=== PATIENT | male | born 1975 | race Caucasian/White ===

== ENCOUNTER 2020-10-29 20:11 | Inpatient (IN) | payer MEDICAID, SELFPAY ==
[2020-10-29 20:16] VITALS: BP 127/82; PULSE 89; RESP 20; TEMP 36.9; O2SAT 95; BMI 30.1
[2020-10-29 22:31] VITALS: BP 114/66; PULSE 81; RESP 18; TEMP 36.6; O2SAT 97
--- NOTE | 2020-10-29 23:33 | ED_ITS ---
HPI - Psych General Chief Complaint: Psychiatric Symptoms Stated Complaint: crisis Time Seen by Provider: 10/29/20 23:30 Source: patient Mode of arrival: ambulatory Limitations: no limitations History of Present Illness HPI Narrative: Patient comes to emergency room complaining of suicidal ideation and hearing voices. Patient states he is known to be schizophrenic, patient states he had stopped taking his medications 2 days ago because he thought he did not need them anymore which he realizes now that it was a mistake. Patient states that earlier this afternoon, patient tried hanging himself. Patient states he was preparing a rope but his family walked in and stop him. Patient states he has history of suicide attempts. Patient states he is hearing voices that are telling him to kill himself. Patient states that he is seeking for inpatient treatments, dual diagnosis Related Data Allergies Allergy/AdvReac Type Severity Reaction Status Date / Time acetaminophen [From TYLENOL] Allergy Unknown STOMACH Unverified 05/15/20 16:18 UPSET amoxicillin [AMOXICILLIN] Allergy Unknown SWELLING Unverified 05/15/20 16:18 clavulanic acid Allergy Unknown UNKNOWN Unverified 05/15/20 16:18 [From AUGMENTIN] Review of Systems Review of Systems: Constitutional : No Weight loss, No Fever, No Chills, No Night Sweats, No Fatigue, No Malaise ENT/Mouth : No Hearing loss, No Ear Pain, No Nasal Congestion, No Sinus Pain, No Hoarseness, No sore throat, No Rhinorrhea, No Swallowing Difficulty Eyes: No Eye Pain, No Swelling, No Redness, No Foreign Body, No Discharge, No Vision Changes Cardiovascular : No Chest Pain, No SOB, No Dyspnea on Exertion, No Orthopnea, No Edema, No Palpitations Respiratory : No Cough, No Sputum, No Wheezing, No Smoke Exposure, No Dyspnea Gastrointestinal : No Nausea, No Vomiting, No Diarrhea, No Constipation, No abdominal Pain, No Hematochezia, No Melena Genitourinary : no irregular bleeding, No Dysuria, No Urinary Frequency, No Hematuria, No Urinary Incontinence, No Urgency, No Flank Pain, No Urinary Flow Changes, No Hesitancy Musculoskeletal : No joint pain, No Myalgias, No Joint Swelling Skin : No Skin Lesions, No rash Neuro : No Weakness, No Numbness, No Paresthesias, No Loss of Consciousness, No Dizziness, No Headache Psych : Anxiety, depression, suicidal ideation, no HI, complaining of auditory hallucinations as well Heme/Lymph: No Bruising, No Bleeding,No Lymphadenopathy Endocrine : No Polyuria, No Polydipsia, No Temperature Intolerance [facility] Past Medical History Medical History Alcohol abuse Anxiety Bipolar 1 disorder PTSD (post-traumatic stress disorder) Schizophrenia Substance abuse Social History Social History Advance Directives: No Advance Directives Information Provided: Yes Physical Exam Vital Signs: Vital Signs: Last Vital Signs Temp 97.9 F 10/29/20 22:31 Pulse 81 10/29/20 22:31 Resp 18 10/29/20 22:31 BP 114/66 10/29/20 22:31 Pulse Ox 97 10/29/20 22:31 Body Mass Index 30.1 Appearance: Alert. Oriented X3. No acute distress. Eyes: Pupils equal, round and reactive to light. ENT: Pharynx normal. Neck: Normal inspection. Neck supple. No lymph nodes noted. No crepitus CVS: Normal heart rate and rhythm. Pulses normal. Normal S1 and S2 Respiratory: No respiratory distress. Breath sounds normal. No Wheezing. No rales Abdomen: Soft and nontender. No rigidity. No distention. good BS x4 Skin: Skin warm and dry. Normal skin color. Normal skin turgor. Extremities: No lower extremity edema. No lower extremity edema. No Lacer ations. No Rash Neuro: Oriented X 3. No motor deficit. No sensory deficit. Moving all extermities. No slurred speech. Psych: Alert, oriented, calm, cooperative, normal train of thought Course Course Course Narrative: N consult pending. Patient is Section 12. Sign-out given to Dr. Sharma. MDM - Psych Lab Data Labs: Lab Results 10/30/20 Range/Units 01:09 Ethyl Alcohol < 10 mg/dL Discharge Plan Discharge Clinical Impression: Suicidal ideation, Chronic schizophrenia
[2020-10-30] VITALS (9 sets, daily range): BP systolic 110–112; BP diastolic 70–78; PULSE 66–73; RESP 16–20; TEMP 36.6–36.7; O2SAT 96–100
--- NOTE | 2020-10-30 | ECG_ITS ---
Test Reason : MEDICAL CLEAR Blood Pressure : / mmHG Vent. Rate : 060 BPM Atrial Rate : 060 BPM P-R Int : 190 ms QRS Dur : 082 ms QT Int : 428 ms P-R-T Axes : 054 001 022 degrees QTc Int : 428 ms Normal sinus rhythm with sinus arrhythmia Possible Left atrial enlargement Borderline ECG When compared with ECG of 20-MAY-2019 01:55, Nonspecific T wave abnormality, improved in Anterior leads Referred By: Vi Jaramillo Electronically Signed By:ALFREDO POLLOCK
[2020-10-30 01:55] LABS: Ethanol < 10 mg/dL
[2020-10-30] MEDS: LORazepam 1 MG TABLET 2 MG PO (07:48)
--- NOTE | 2020-10-30 07:53 | PC.NURSE ---
MED FOR ANXIETY REQUESTED. AWAITING [facility] CONSULT. AMELIE WALLER
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
--- NOTE | 2020-10-30 10:38 | PC.NURSE ---
Pt being evaluated by CARE team. Plan is to send to POD after his interview.
--- NOTE | 2020-10-30 10:58 | MHC.CARE ---
CARE Team assessed patient, he will need an inpatient psychiatric hospitalization and will remain in the ED until a placement is secured. Providers updated
--- NOTE | 2020-10-30 11:28 | PC.NURSE ---
Pt transferred from Main ED to pod. Pt pleasant, cooperative w/ changeover, oriented to unit and to process. decator operator in to see- states pt normally takes suboxone, states provider is aware.
--- NOTE | 2020-10-30 11:55 | PC.NURSE ---
Pt pleasant, states that he would prefer to take suboxone a little later, when he is experiencing more symptoms of withdrawal.
--- NOTE | 2020-10-30 16:52 | PC.NURSE ---
CARE team in to see pt. Pt pleasant, affect even, no concerns reported
--- NOTE | 2020-10-30 18:17 | PC.NURSE ---
Pharmacy called to complete med rec. Pt resting in room- continues to decline suboxone, states he will approach staff when he is ready to take.
[2020-10-30 19:35] LABS: Glucose Urine UA NEG (NEG); Leukocyte Esterase Urine NEG (NEG); Nitrite Urine NEG (NEG); PH 6.5 (5.0-8.0); Specific Gravity - Urine <= 1.005 (1.005-1.025); Urine Blood NEG (NEG); Urine Ketones NEG (NEG); Urine Protein NEG (NEG-TRACE)
[2020-10-30 19:38] LABS: Appearance Urine CLEAR; Color Urine YELLOW
[2020-10-30 19:44] LABS: MANUAL DIFF FLAG NO
[2020-10-30 19:46] LABS: Basophils Percent Auto 0.8 % (0-2); Eosinophils Absolute Auto 0.3 X10*3/uL (0.0-0.4); Eosinophils Percent Auto 5.7 % (0-4); Hematocrit 41.2 % (42-52); Hemoglobin 14.1 g/dl (14.0-18.0); Lymphocytes Absolute Auto 1.4 X10*3/uL (1.2-4.9); Mean Corpuscular HGB Conc 34.2 g/dl (31.0-36.0); Mean Corpuscular Hemoglobin 31.6 pg (27.0-33.0); Mean Corpuscular Volume 92.4 fL (80-98); Monocytes Absolute Auto 0.7 X10*3/uL (0.1-1.2); Monocytes Percent Auto 13.7 % (2-11); Neutrophils Absolute Auto 2.8 X10*3/uL (2.0-8.3); Neutrophils Percent Auto 52.8 % (45-73); Platelet Count 189 X10*3/uL (160-400); Red Blood Count 4.46 X10*6/uL (4.60-5.80); Red Cell Distribution Width 12.6 % (11.0-16.0); White Blood Count 5.3 X10*3/uL (4.8-10.8)
[2020-10-30 20:06] LABS: Amphetamine Screen Urine Not Detected (Not Detect); Barbiturates, Urine Not Detected (Not Detect); Benzodiazepines Screen Urine Not Detected (Not Detect); Cannabinoid Screen Urine Not Detected (Not Detect); Cocaine Screen Urine POSITIVE (Not Detect); Opiate Screen Urine POSITIVE (Not Detect); Phencyclidine Screen Urine Not Detected (Not Detect)
[2020-10-30 20:17] LABS: Alanine Aminotransferase 88 U/L (0-40); Albumin Level 3.8 g/dL (3.5-5.0); Alkaline Phosphatase 65 U/L (39-117); Anion Gap 11 (12-20); Aspartate Amino Transferase 66 U/L (5-37); Bilirubin Direct 0.3 mg/dL (0.0-0.5); Bilirubin Total 0.6 mg/dL (0.0-1.0); Blood Urea Nitrogen 16 mg/dL (9-16); Calcium 8.6 mg/dL (8.4-10.2); Carbon Dioxide 32 mmol/L (22-29); Chloride 102 mmol/L (96-108); Creatinine Clr Calc Pharmacy 117.5; Estimated Glomerular Filt Rate > 60; Glucose Random 88 mg/dL (60-115); Potassium 4.3 mmol/L (3.3-5.1); Sodium 141 mmol/L (135-145); Total Protein 6.4 g/dL (6.5-8.0)
[2020-10-30 20:25] LABS: COVID-19 Test Negative (Negative)
[2020-10-30] MEDS: chlorproMAZINE HCl 25 MG TABLET 75 MG PO (21:15)
[2020-10-30] MEDS: chlorproMAZINE HCl 100 MG TABLET PO (21:16)
[2020-10-30] MEDS: Gabapentin 600 MG TABLET PO (21:16)
[2020-10-30] MEDS: busPIRone HCl 5 MG TABLET 15 MG PO (21:16)
--- NOTE | 2020-10-30 21:21 | PC.NURSE ---
Patient compliant with lab draw, EKG, and with His HS PO medication, declined his suboxone with fear of going into precipitated withdrawal, mood pleasant, help seeking, will continue to monitor.
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
[2020-10-31 06:00] VITALS: BP 114/64; PULSE 53; RESP 16; TEMP 37.1; O2SAT 98
[2020-10-31] MEDS: chlorproMAZINE HCl 25 MG TABLET 75 MG PO (08:29)
[2020-10-31] MEDS: Sertraline HCL 100 MG TABLET PO (08:30)
[2020-10-31] MEDS: Gabapentin 600 MG TABLET PO ×3 (08:30→21:30)
[2020-10-31] MEDS: busPIRone HCl 5 MG TABLET 15 MG PO ×3 (08:30→21:31)
[2020-10-31] MEDS: Buprenorphine/Naloxone 8/2 mg FILM 1 FILM SUBLINGUAL ×2 (08:48→21:31)
[2020-10-31 08:54] LABS: Alanine Aminotransferase 102 U/L (0-40); Albumin Level 4.3 g/dL (3.5-5.0); Alkaline Phosphatase 72 U/L (39-117); Anion Gap 11 (12-20); Aspartate Amino Transferase 78 U/L (5-37); Bilirubin Total 0.8 mg/dL (0.0-1.0); Blood Urea Nitrogen 16 mg/dL (9-16); Calcium 9.1 mg/dL (8.4-10.2); Carbon Dioxide 29 mmol/L (22-29); Chloride 104 mmol/L (96-108); Cholesterol 173 mg/dL; Creatinine Clr Calc Pharmacy 140.6; Estimated Glomerular Filt Rate > 60; Glucose Fasting 81 mg/dL (60-99); HDL Cholesterol 46 mg/dL; LDL Cholesterol Calculated 113 mg/dl; Potassium 4.2 mmol/L (3.3-5.1); Sodium 140 mmol/L (135-145); Total Protein 7.3 g/dL (6.5-8.0); Triglycerides 70 mg/dL
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
[2020-10-31 21:05] VITALS: BP 111/57; PULSE 60; TEMP 36.5
[2020-10-31] MEDS: risperiDONE 1 MG TABLET PO (21:31)
[2020-11-01 06:10] VITALS: BP 130/74; PULSE 61; RESP 16; TEMP 36.7; O2SAT 95
[2020-11-01] MEDS: Gabapentin 600 MG TABLET PO ×3 (08:40→21:24)
[2020-11-01] MEDS: Sertraline HCL 50 MG TABLET PO (08:40)
[2020-11-01] MEDS: Buprenorphine/Naloxone 8/2 mg FILM 1 FILM SUBLINGUAL ×2 (08:40→21:25)
[2020-11-01] MEDS: busPIRone HCl 5 MG TABLET 15 MG PO ×3 (08:40→21:24)
[2020-11-01] MEDS: risperiDONE 1 MG TABLET PO ×2 (08:40→21:24)
[2020-11-01] MEDS: Venlafaxine HCl ER 37.5 MG CAP.ER.24H PO (08:40)
[2020-11-01 21:15] VITALS: BP 128/58; PULSE 82; TEMP 36.8
--- NOTE | 2020-11-01 22:36 | HO.PSYCHPN ---
Subjective Subjective Date of Service: 11/02/20 Reason For Visit: Bipolar dx opiate dep Subjective Notes: Conditional Voluntary Interim History: pt depressed with aud hallucinations Medication Compliance: Yes Side effects from medications: No Mental Status Exam Mental Status Exam Narrative: Appearance: wearing hospital gown, disheveled, in NAD Behavior: withdrawn, minimally cooperative Psychomotor: retardation noted Speech: clear, normal rate/rhythm/volume, spontaneus TP: linear TC: no signs of psychosis, hopeless/helpless Mood: depressed Affect: blunted, congruent VH/AH: pt reports auditory hallucinations, seeing shadows Delusions: none Insight/judgment: poor x 2. Memory/cog: alert, oriented x 3. Diagnostics Vital Signs (24Hr): Vital Signs - 24 hr 11/01/20 06:10 11/01/20 21:15 Temperature 98.0 F 98.2 F Pulse Rate 61 82 Respiratory Rate 16 Blood Pressure 130/74 128/58 L Pulse Oximetry 95 Body Mass Index 30.1 Labs Results: 10/30/20 19:39 10/31/20 08:01 Labs: Laboratory Results - last 48 hr 10/31/20 08:01 Sodium 140 Potassium 4.2 Chloride 104 Carbon Dioxide 29 Anion Gap 11 L BUN 16 Creatinine 0.76 Estim Creat Clear Calc 140.6 Estimated GFR > 60 Fasting Glucose 81 Calcium 9.1 Total Bilirubin 0.8 AST 78 H ALT 102 H Alkaline Phosphatase 72 Total Protein 7.3 Albumin 4.3 Triglycerides 70 Cholesterol 173 LDL Cholesterol, Calc 113 HDL Cholesterol 46 Medications Medications Current Medications Generic Name Dose Route Start Last Admin Trade Name Freq PRN Reason Stop Dose Admin Al Hydroxide/Mg Hydroxide 30 ml 10/30/20 23:58 Magnesium Hydrox/Alum Hydrox 30 Ml Oral.Susp PO Q6H PRN Heartburn/Nausea Buprenorphine/Naloxone 1 film 10/30/20 11:45 11/01/20 21:25 Buprenorphine/Naloxone 8/2 Mg Film SUBLINGUAL 1 film BID MICHAEL Administration Buspirone HCl 15 mg 10/30/20 21:00 11/01/20 21:24 Buspirone Hcl 5 Mg Tablet PO 15 mg TID MICHAEL Administration Gabapentin 600 mg 10/30/20 21:00 11/01/20 21:24 Gabapentin 600 Mg Tablet PO 600 mg TID MICHAEL Administration Hydroxyzine HCl 25 mg 10/30/20 23:58 Hydroxyzine Hcl 25 Mg Tablet PO BEDTIME PRN Anxiety Magnesium Hydroxide 30 ml 10/30/20 23:58 Milk Of Magnesia 30 Ml Oral.Susp PO DAILY PRN Constipation Risperidone 1 mg 10/31/20 21:00 11/01/20 21:24 Risperidone 1 Mg Tablet PO 1 mg BID MICHAEL Administration Sertraline HCl 50 mg 11/01/20 09:00 11/01/20 08:40 Sertraline Hcl 50 Mg Tablet PO 11/05/20 09:01 50 mg DAILY MICHAEL Administration Trazodone HCl 50 mg 10/30/20 23:58 Trazodone Hcl 50 Mg Tablet PO BEDTIME PRN Insomnia Venlafaxine HCl 37.5 mg 11/01/20 09:00 11/01/20 08:40 Venlafaxine Hcl Er 37.5 Mg Cap.Er.24h PO 37.5 mg DAILY MICHAEL Administration Allergies Allergies Allergy/AdvReac Type Severity Reaction Status Date / Time acetaminophen [From TYLENOL] Allergy Unknown STOMACH Unverified 05/15/20 16:18 UPSET amoxicillin [AMOXICILLIN] Allergy Unknown SWELLING Unverified 05/15/20 16:18 clavulanic acid Allergy Unknown UNKNOWN Unverified 05/15/20 16:18 [From AUGMENTIN] Assessment & Plan Assessment & Plan (1) Severe recurrent major depressive disorder with psychosis: Status: Acute Code(s): F33.3 - Major depressive disorder, recurrent, severe with psychotic symptoms Assessment and Plan: change zolft to effexor monitor resoinse to risperadol med ed encourage sobriety (2) Cocaine abuse: Status: Acute Code(s): F14.10 - Cocaine abuse, uncomplicated (3) Opiate dependence, continuous: Status: Acute Code(s): F11.20 - Opioid dependence, uncomplicated Greater than 50% of the session was spent on counseling and/or coordination of care Reason for contiued inpatient stay Substantial Risk for: harm to self and rapid decompensation
[2020-11-02 06:05] VITALS: BP 103/57; PULSE 61; RESP 16; TEMP 36.6; O2SAT 94
[2020-11-02] MEDS: Gabapentin 600 MG TABLET PO ×3 (08:45→20:01)
[2020-11-02] MEDS: risperiDONE 1 MG TABLET PO ×2 (08:45→20:01)
[2020-11-02] MEDS: busPIRone HCl 5 MG TABLET 15 MG PO ×3 (08:45→20:01)
[2020-11-02] MEDS: Venlafaxine HCl ER 37.5 MG CAP.ER.24H PO (08:45)
[2020-11-02] MEDS: Buprenorphine/Naloxone 8/2 mg FILM 1 FILM SUBLINGUAL ×2 (08:45→20:04)
[2020-11-02] MEDS: Sertraline HCL 50 MG TABLET PO (08:45)
[2020-11-02 18:00] VITALS: BP 110/74; PULSE 76; TEMP 36.9
[2020-11-02] MEDS: Ibuprofen 800 MG TABLET PO (18:55)
--- NOTE | 2020-11-02 20:10 | P.PNPSI_ITS ---
Subjective Subjective Date of Service: 11/02/20 Reason For Visit: Bipolar dx opiate dep Subjective Notes: [place] Warning and 3 Day Medication Compliance: Yes Mental Status Exam Mental Status Exam Patient Appearance: Appropriate Patient Orientation: Person, Place, Time and Situation Level of Consciousness: Awake Patient Behavior: Appropriate, Passive and Anxious Mood Description: Withdrawn, Depressed and Anxious Affect Description: Depressed and Anxious Hallucinations: Auditory Thought Content: positive for [place], positive for Suicidal Ideation (passive) and negative for Homicidal Ideation Depressive Symptoms: Increased Anxiety, Feelings of Worthlessness and Loss of Energy Judgement: Fair Diagnostics Vital Signs (24Hr): Vital Signs - 24 hr 11/01/20 21:15 11/02/20 06:05 11/02/20 18:00 Temperature 98.2 F 97.9 F 98.5 F Pulse Rate 82 61 76 Respiratory Rate 16 Blood Pressure 128/58 L 103/57 L 110/74 Pulse Oximetry 94 Body Mass Index 30.1 Labs Results: 10/30/20 19:39 10/31/20 08:01 Medications Medications Current Medications Generic Name Dose Route Start Last Admin Trade Name Freq PRN Reason Stop Dose Admin Al Hydroxide/Mg Hydroxide 30 ml 10/30/20 23:58 Magnesium Hydrox/Alum Hydrox 30 Ml Oral.Susp PO Q6H PRN Heartburn/Nausea Buprenorphine/Naloxone 1 film 10/30/20 11:45 11/02/20 20:04 Buprenorphine/Naloxone 8/2 Mg Film SUBLINGUAL 1 film BID MICHAEL Administration Buspirone HCl 15 mg 10/30/20 21:00 11/02/20 20:01 Buspirone Hcl 5 Mg Tablet PO 15 mg TID MICHAEL Administration Gabapentin 600 mg 10/30/20 21:00 11/02/20 20:01 Gabapentin 600 Mg Tablet PO 600 mg TID MICHAEL Administration Hydroxyzine HCl 25 mg 10/30/20 23:58 Hydroxyzine Hcl 25 Mg Tablet PO BEDTIME PRN Anxiety Ibuprofen 800 mg 11/02/20 18:43 11/02/20 18:55 Ibuprofen 800 Mg Tablet PO 800 mg Q8H PRN Administration lower back pain Magnesium Hydroxide 30 ml 10/30/20 23:58 Milk Of Magnesia 30 Ml Oral.Susp PO DAILY PRN Constipation Risperidone 1 mg 10/31/20 21:00 11/02/20 20:01 Risperidone 1 Mg Tablet PO 1 mg BID MICHAEL Administration Sertraline HCl 50 mg 11/01/20 09:00 11/02/20 08:45 Sertraline Hcl 50 Mg Tablet PO 11/05/20 09:01 50 mg DAILY MICHAEL Administration Trazodone HCl 50 mg 10/30/20 23:58 Trazodone Hcl 50 Mg Tablet PO BEDTIME PRN Insomnia Venlafaxine HCl 37.5 mg 11/01/20 09:00 11/02/20 08:45 Venlafaxine Hcl Er 37.5 Mg Cap.Er.24h PO 37.5 mg DAILY MICHAEL Administration Allergies Allergies Allergy/AdvReac Type Severity Reaction Status Date / Time acetaminophen [From TYLENOL] Allergy Unknown STOMACH Unverified 05/15/20 16:18 UPSET amoxicillin [AMOXICILLIN] Allergy Unknown SWELLING Unverified 05/15/20 16:18 clavulanic acid Allergy Unknown UNKNOWN Unverified 05/15/20 16:18 [From AUGMENTIN] Assessment & Plan Assessment & Plan (1) Severe recurrent major depressive disorder with psychosis: Status: Acute Code(s): F33.3 - Major depressive disorder, recurrent, severe with psychotic symptoms (2) Opiate dependence, continuous: Status: Acute Code(s): F11.20 - Opioid dependence, uncomplicated (3) Cocaine abuse: Status: Acute Code(s): F14.10 - Cocaine abuse, uncomplicated Assessment and Plan: ? need for CSS risp for luci hensley for joel depression Greater than 50% of the session was spent on counseling and/or coordination of care Reason for contiued inpatient stay Substantial Risk for: harm to self and rapid decompensation
[2020-11-03 06:00] VITALS: BP 115/74; PULSE 61; RESP 16; TEMP 36.7; O2SAT 96
[2020-11-03] MEDS: busPIRone HCl 5 MG TABLET 15 MG PO ×3 (09:10→20:07)
[2020-11-03] MEDS: Venlafaxine HCl ER 37.5 MG CAP.ER.24H PO (09:10)
[2020-11-03] MEDS: Sertraline HCL 50 MG TABLET PO (09:10)
[2020-11-03] MEDS: Gabapentin 600 MG TABLET PO ×3 (09:10→20:08)
[2020-11-03] MEDS: risperiDONE 1 MG TABLET PO ×2 (09:10→20:08)
[2020-11-03] MEDS: Buprenorphine/Naloxone 8/2 mg FILM 1 FILM SUBLINGUAL ×2 (09:11→13:40)
[2020-11-03 12:17] VITALS: BP 110/58; PULSE 56
--- NOTE | 2020-11-03 13:22 | HO.PSYCHPN ---
Subjective Subjective Date of Service: 11/03/20 Reason For Visit: Bipolar dx opiate dep Interim History: Pt continues to endorse depressed mood, anhedonia. He reports he does not have much to look forward to. He continues to endorse AH. He reports he has been on abilify in the past but not sure if it was as effective. He has also been on latuda and thinks might have worked better. However, he states he would like to continue risperidone. He reports fair sleep- having nightmares at [facility]- He used to be on prazosin with good effect. Agreed to restart prazosin for nightmares. He continues to endorse suicidal ideation, no current plan. We discussed increasing Effexor to 75mg po daily Review of Systems Review of Systems Constitutional : No Weight loss, No Fever, No Chills, No Night Sweats, No Fatigue, No Malaise ENT/Mouth : No Hearing loss, No Ear Pain, No Nasal Congestion, No Sinus Pain, No Hoarseness, No sore throat, No Rhinorrhea, No Swallowing Difficulty Eyes: No Eye Pain, No Swelling, No Redness, No Foreign Body, No Discharge, No Vision Changes Cardiovascular : No Chest Pain, No SOB, No Dyspnea on Exertion, No Orthopnea, No Edema, No Palpitations Respiratory : No Cough, No Sputum, No Wheezing, No Smoke Exposure, No Dyspnea Gastrointestinal : No Nausea, No Vomiting, No Diarrhea, No Constipation, No abdominal Pain, No Hematochezia, No Melena Genitourinary : no irregular bleeding, No Dysuria, No Urinary Frequency, No Hematuria, No Urinary Incontinence, No Urgency, No Flank Pain, No Urinary Flow Changes, No Hesitancy Musculoskeletal : No joint pain, No Myalgias, No Joint Swelling Skin : No Skin Lesions, No rash Neuro : No Weakness, No Numbness, No Paresthesias, No Loss of Consciousness, No Dizziness, No Headache Psych : Anxiety, depression, suicidal ideation, no HI, complaining of auditory hallucinations as well Heme/Lymph: No Bruising, No Bleeding,No Lymphadenopathy Endocrine : No Polyuria, No Polydipsia, No Temperature Intolerance Yes all other systems are reviewed and are negative Mental Status Exam Mental Status Exam Narrative: Appearance: wearing hospital gown, disheveled, in NAD Behavior: withdrawn, minimally cooperative Psychomotor: retardation noted Speech: clear, normal rate/rhythm/volume, spontaneus TP: linear TC: no signs of psychosis, hopeless/helpless Mood: depressed Affect: blunted, congruent VH/AH: pt reports auditory hallucinations, seeing shadows Delusions: none Insight/judgment: poor x 2. Memory/cog: alert, oriented x 3. Diagnostics Vital Signs (24Hr): Vital Signs - 24 hr 11/02/20 18:00 11/03/20 06:00 11/03/20 12:17 Temperature 98.5 F 98.0 F Pulse Rate 76 61 56 Respiratory Rate 16 Blood Pressure 110/74 115/74 110/58 L Pulse Oximetry 96 Body Mass Index 30.1 Labs Results: 10/30/20 19:39 10/31/20 08:01 Medications Medications Current Medications Generic Name Dose Route Start Last Admin Trade Name Freq PRN Reason Stop Dose Admin Al Hydroxide/Mg Hydroxide 30 ml 10/30/20 23:58 Magnesium Hydrox/Alum Hydrox 30 Ml Oral.Susp PO Q6H PRN Heartburn/Nausea Buprenorphine/Naloxone 2 film 11/04/20 09:00 Buprenorphine/Naloxone 8/2 Mg Film SUBLINGUAL DAILY MICHAEL Buspirone HCl 15 mg 10/30/20 21:00 11/03/20 09:10 Buspirone Hcl 5 Mg Tablet PO 15 mg TID MICHAEL Administration Gabapentin 600 mg 10/30/20 21:00 11/03/20 09:10 Gabapentin 600 Mg Tablet PO 600 mg TID MICHAEL Administration Hydroxyzine HCl 25 mg 10/30/20 23:58 Hydroxyzine Hcl 25 Mg Tablet PO BEDTIME PRN Anxiety Ibuprofen 800 mg 11/02/20 18:43 11/02/20 18:55 Ibuprofen 800 Mg Tablet PO 800 mg Q8H PRN Administration lower back pain Magnesium Hydroxide 30 ml 10/30/20 23:58 Milk Of Magnesia 30 Ml Oral.Susp PO DAILY PRN Constipation Risperidone 1 mg 10/31/20 21:00 11/03/20 09:10 Risperidone 1 Mg Tablet PO 1 mg BID MICHAEL Administration Sertraline HCl 50 mg 11/01/20 09:00 11/03/20 09:10 Sertraline Hcl 50 Mg Tablet PO 11/05/20 09:01 50 mg DAILY MICHAEL Administration Trazodone HCl 50 mg 10/30/20 23:58 Trazodone Hcl 50 Mg Tablet PO BEDTIME PRN Insomnia Venlafaxine HCl 75 mg 11/04/20 09:00 Venlafaxine Hcl Er 37.5 Mg Cap.Er.24h PO DAILY MICHAEL Allergies Allergies Allergy/AdvReac Type Severity Reaction Status Date / Time acetaminophen [From TYLENOL] Allergy Unknown STOMACH Unverified 05/15/20 16:18 UPSET amoxicillin [AMOXICILLIN] Allergy Unknown SWELLING Unverified 05/15/20 16:18 clavulanic acid Allergy Unknown UNKNOWN Unverified 05/15/20 16:18 [From AUGMENTIN] Assessment & Plan Assessment & Plan (1) Severe recurrent major depressive disorder with psychosis: Status: Acute Code(s): F33.3 - Major depressive disorder, recurrent, severe with psychotic symptoms Assessment and Plan: 1. Continue cross taper from sertraline to effexor- increase effexor to 75 mg po daily 2. Continue risperidone 1mg po BID (2) Opiate dependence, continuous: Status: Acute Code(s): F11.20 - Opioid dependence, uncomplicated Assessment and Plan: wants to take suboxone all in AM, no divided dose (3) Cocaine abuse: Status: Acute Code(s): F14.10 - Cocaine abuse, uncomplicated Greater than 50% of the session was spent on counseling and/or coordination of care Reason for contiued inpatient stay Substantial Risk for: harm to self
[2020-11-03 17:45] VITALS: BP 116/74; PULSE 75; TEMP 36.6
[2020-11-03 19:43] VITALS: BP 118/79; PULSE 66
[2020-11-03 20:08] VITALS: BP 118/79; PULSE 66
[2020-11-03] MEDS: Prazosin HCL 1 MG CAPSULE PO (20:08)
[2020-11-03] MEDS: Ibuprofen 800 MG TABLET PO (21:07)
[2020-11-04 06:05] VITALS: BP 115/65; PULSE 59; RESP 16; TEMP 36.3; O2SAT 96
[2020-11-04] MEDS: risperiDONE 1 MG TABLET PO ×2 (08:47→21:13)
[2020-11-04] MEDS: Venlafaxine HCl ER 37.5 MG CAP.ER.24H 75 MG PO (08:48)
[2020-11-04] MEDS: Gabapentin 600 MG TABLET PO ×3 (08:48→21:13)
[2020-11-04] MEDS: busPIRone HCl 5 MG TABLET 15 MG PO ×3 (08:48→21:14)
[2020-11-04] MEDS: Sertraline HCL 50 MG TABLET PO (08:48)
[2020-11-04] MEDS: Buprenorphine/Naloxone 8/2 mg FILM 2 FILM SUBLINGUAL (10:25)
--- NOTE | 2020-11-04 10:26 | MHC.RECOVRN ---
T/w met with pt to follow up regarding substance use. Pt reports doing well and not feeling any withdrawal symptoms. Pt expressed concern regarding prescription for Suboxone after discharge. Pt does not have last script that was filled on 10/23 for one month supply. T/w discussed possibility of insurance overriding last script in the context of the prescription being lost. Pt has never encountered this situation before. T/w also educated pt regarding Sublocade and that it may be an option as well. Overall, pt reports doing better regarding mental health and substance use. Pt reports having this time to address mental health is significantly impacting desire to return to substance use. Pt states it's the mental stuff that always leads to a relapse. Pt encouraged to continue participating and engaging on [facility] and to continue to think about CSS as further treatment after d/c.
--- NOTE | 2020-11-04 16:11 | HO.PSYCHPN ---
Subjective Subjective Date of Service: 11/04/20 Reason For Visit: Bipolar dx opiate dep Interim History: Pt reports slight improvement in symptoms of depression in that he feels less hopeless. He continues to endorse depressed mood. He reports less AH, he denies CAH. He reports having nightmares. He also reports waking up frequently. We discussed increasing prazosin to 2mg po qhs. He continues to endorse passive suicidal ideation but denies any plan or intent. Review of Systems Review of Systems Constitutional : No Weight loss, No Fever, No Chills, No Night Sweats, No Fatigue, No Malaise ENT/Mouth : No Hearing loss, No Ear Pain, No Nasal Congestion, No Sinus Pain, No Hoarseness, No sore throat, No Rhinorrhea, No Swallowing Difficulty Eyes: No Eye Pain, No Swelling, No Redness, No Foreign Body, No Discharge, No Vision Changes Cardiovascular : No Chest Pain, No SOB, No Dyspnea on Exertion, No Orthopnea, No Edema, No Palpitations Respiratory : No Cough, No Sputum, No Wheezing, No Smoke Exposure, No Dyspnea Gastrointestinal : No Nausea, No Vomiting, No Diarrhea, No Constipation, No abdominal Pain, No Hematochezia, No Melena Genitourinary : no irregular bleeding, No Dysuria, No Urinary Frequency, No Hematuria, No Urinary Incontinence, No Urgency, No Flank Pain, No Urinary Flow Changes, No Hesitancy Musculoskeletal : No joint pain, No Myalgias, No Joint Swelling Skin : No Skin Lesions, No rash Neuro : No Weakness, No Numbness, No Paresthesias, No Loss of Consciousness, No Dizziness, No Headache Psych : Anxiety, depression, suicidal ideation, no HI, complaining of auditory hallucinations as well Heme/Lymph: No Bruising, No Bleeding,No Lymphadenopathy Endocrine : No Polyuria, No Polydipsia, No Temperature Intolerance Yes all other systems are reviewed and are negative Mental Status Exam Mental Status Exam Narrative: Appearance: wearing hospital gown, disheveled, in NAD Behavior: withdrawn, minimally cooperative Psychomotor: retardation noted Speech: clear, normal rate/rhythm/volume, spontaneus TP: linear TC: no signs of psychosis, hopeless/helpless Mood: depressed Affect: blunted, congruent VH/AH: pt reports auditory hallucinations, seeing shadows Delusions: none Insight/judgment: poor x 2. Memory/cog: alert, oriented x 3. Diagnostics Vital Signs (24Hr): Vital Signs - 24 hr 11/03/20 17:45 11/03/20 19:43 11/03/20 20:08 Temperature 98 F Pulse Rate 75 66 66 Respiratory Rate Blood Pressure 116/74 118/79 118/79 Pulse Oximetry 11/04/20 06:05 Temperature 97.4 F Pulse Rate 59 Respiratory Rate 16 Blood Pressure 115/65 Pulse Oximetry 96 Body Mass Index 30.1 Labs Results: 10/30/20 19:39 10/31/20 08:01 Medications Medications Current Medications Generic Name Dose Route Start Last Admin Trade Name Freq PRN Reason Stop Dose Admin Al Hydroxide/Mg Hydroxide 30 ml 10/30/20 23:58 Magnesium Hydrox/Alum Hydrox 30 Ml Oral.Susp PO Q6H PRN Heartburn/Nausea Buprenorphine/Naloxone 2 film 11/04/20 09:00 11/04/20 10:25 Buprenorphine/Naloxone 8/2 Mg Film SUBLINGUAL 2 film DAILY MICHAEL Administration Buspirone HCl 15 mg 10/30/20 21:00 11/04/20 14:13 Buspirone Hcl 5 Mg Tablet PO 15 mg TID MICHAEL Administration Gabapentin 600 mg 10/30/20 21:00 11/04/20 14:13 Gabapentin 600 Mg Tablet PO 600 mg TID MICHAEL Administration Hydroxyzine HCl 25 mg 10/30/20 23:58 Hydroxyzine Hcl 25 Mg Tablet PO BEDTIME PRN Anxiety Ibuprofen 800 mg 11/02/20 18:43 11/03/20 21:07 Ibuprofen 800 Mg Tablet PO 800 mg Q8H PRN Administration lower back pain Magnesium Hydroxide 30 ml 10/30/20 23:58 Milk Of Magnesia 30 Ml Oral.Susp PO DAILY PRN Constipation Prazosin HCl 2 mg 11/04/20 21:00 Prazosin Hcl 1 Mg Capsule PO BEDTIME MICHAEL Protocol Risperidone 1 mg 10/31/20 21:00 11/04/20 08:47 Risperidone 1 Mg Tablet PO 1 mg BID MICHAEL Administration Sertraline HCl 50 mg 11/01/20 09:00 11/04/20 08:48 Sertraline Hcl 50 Mg Tablet PO 11/05/20 09:01 50 mg DAILY MICHAEL Administration Trazodone HCl 50 mg 10/30/20 23:58 Trazodone Hcl 50 Mg Tablet PO BEDTIME PRN Insomnia Venlafaxine HCl 75 mg 11/04/20 09:00 11/04/20 08:48 Venlafaxine Hcl Er 37.5 Mg Cap.Er.24h PO 75 mg DAILY MICHAEL Administration Allergies Allergies Allergy/AdvReac Type Severity Reaction Status Date / Time acetaminophen [From TYLENOL] Allergy Mild STOMACH Verified 11/04/20 11:18 UPSET amoxicillin [AMOXICILLIN] Allergy Unknown SWELLING Verified 11/04/20 11:18 clavulanic acid Allergy Unknown Swelling Verified 11/04/20 11:18 [From AUGMENTIN] Assessment & Plan Assessment & Plan (1) Severe recurrent major depressive disorder with psychosis: Status: Acute Code(s): F33.3 - Major depressive disorder, recurrent, severe with psychotic symptoms Assessment and Plan: 1. Continue cross taper from sertraline to effexor- increase effexor to 75 mg po daily 2. Continue risperidone 1mg po BID 3. increase prazosin to 2mg po qhs on 11/04 (2) Opiate dependence, continuous: Status: Acute Code(s): F11.20 - Opioid dependence, uncomplicated Assessment and Plan: wants to take suboxone all in AM, no divided dose (3) Cocaine abuse: Status: Acute Code(s): F14.10 - Cocaine abuse, uncomplicated Greater than 50% of the session was spent on counseling and/or coordination of care Reason for contiued inpatient stay Substantial Risk for: harm to self
[2020-11-04 18:00] VITALS: TEMP 36.3
[2020-11-04 21:13] VITALS: BP 137/78; PULSE 71
[2020-11-04] MEDS: Prazosin HCL 1 MG CAPSULE 2 MG PO (21:13)
[2020-11-05 06:00] VITALS: BP 117/74; PULSE 61; TEMP 36.6
[2020-11-05] MEDS: Buprenorphine/Naloxone 8/2 mg FILM 2 FILM SUBLINGUAL (08:17)
[2020-11-05] MEDS: Sertraline HCL 50 MG TABLET PO (08:18)
[2020-11-05] MEDS: busPIRone HCl 5 MG TABLET 15 MG PO ×3 (08:18→21:23)
[2020-11-05] MEDS: risperiDONE 1 MG TABLET PO ×2 (08:18→21:25)
[2020-11-05] MEDS: Gabapentin 600 MG TABLET PO ×3 (08:18→21:25)
[2020-11-05] MEDS: Venlafaxine HCl ER 37.5 MG CAP.ER.24H 75 MG PO (08:18)
--- NOTE | 2020-11-05 17:31 | HO.PSYCHPN ---
Subjective Subjective Date of Service: 11/05/20 Reason For Visit: Bipolar dx opiate dep Interim History: Pt continues to endorse depressed mood, anhedonia, passive suicidal ideation. He does report that voices have decreased. He denies plan or intent to hurt himself. He has been more visible in the unit and has attended some groups. He reports poor sleep last night. We discussed adding low dose remeron for sleep. Review of Systems Review of Systems Constitutional : No Weight loss, No Fever, No Chills, No Night Sweats, No Fatigue, No Malaise ENT/Mouth : No Hearing loss, No Ear Pain, No Nasal Congestion, No Sinus Pain, No Hoarseness, No sore throat, No Rhinorrhea, No Swallowing Difficulty Eyes: No Eye Pain, No Swelling, No Redness, No Foreign Body, No Discharge, No Vision Changes Cardiovascular : No Chest Pain, No SOB, No Dyspnea on Exertion, No Orthopnea, No Edema, No Palpitations Respiratory : No Cough, No Sputum, No Wheezing, No Smoke Exposure, No Dyspnea Gastrointestinal : No Nausea, No Vomiting, No Diarrhea, No Constipation, No abdominal Pain, No Hematochezia, No Melena Genitourinary : no irregular bleeding, No Dysuria, No Urinary Frequency, No Hematuria, No Urinary Incontinence, No Urgency, No Flank Pain, No Urinary Flow Changes, No Hesitancy Musculoskeletal : No joint pain, No Myalgias, No Joint Swelling Skin : No Skin Lesions, No rash Neuro : No Weakness, No Numbness, No Paresthesias, No Loss of Consciousness, No Dizziness, No Headache Psych : Anxiety, depression, suicidal ideation, no HI, complaining of auditory hallucinations as well Heme/Lymph: No Bruising, No Bleeding,No Lymphadenopathy Endocrine : No Polyuria, No Polydipsia, No Temperature Intolerance Yes all other systems are reviewed and are negative Mental Status Exam Mental Status Exam Narrative: Appearance: wearing hospital gown, disheveled, in NAD Behavior: cooperative Psychomotor:no agitation or retardation noted Speech: clear, normal rate/rhythm/volume, spontaneous TP: linear TC: no signs of psychosis, hopeless/helpless Mood: depressed Affect: blunted, congruent VH/AH: pt reports auditory hallucinations, seeing shadows Delusions: none Insight/judgment: poor x 2. Memory/cog: alert, oriented x 3. Diagnostics Vital Signs (24Hr): Vital Signs - 24 hr 11/04/20 18:00 11/04/20 21:13 11/05/20 06:00 Temperature 97.4 F 98 F Pulse Rate 71 61 Blood Pressure 137/78 117/74 Body Mass Index 30.1 Labs Results: 10/30/20 19:39 10/31/20 08:01 Medications Medications Current Medications Generic Name Dose Route Start Last Admin Trade Name Freq PRN Reason Stop Dose Admin Al Hydroxide/Mg Hydroxide 30 ml 10/30/20 23:58 Magnesium Hydrox/Alum Hydrox 30 Ml Oral.Susp PO Q6H PRN Heartburn/Nausea Buprenorphine/Naloxone 2 film 11/04/20 09:00 11/05/20 08:17 Buprenorphine/Naloxone 8/2 Mg Film SUBLINGUAL 2 film DAILY MICHAEL Administration Buspirone HCl 15 mg 10/30/20 21:00 11/05/20 14:42 Buspirone Hcl 5 Mg Tablet PO 15 mg TID MICHAEL Administration Gabapentin 600 mg 10/30/20 21:00 11/05/20 14:42 Gabapentin 600 Mg Tablet PO 600 mg TID MICHAEL Administration Hydroxyzine HCl 25 mg 10/30/20 23:58 Hydroxyzine Hcl 25 Mg Tablet PO BEDTIME PRN Anxiety Ibuprofen 800 mg 11/02/20 18:43 11/03/20 21:07 Ibuprofen 800 Mg Tablet PO 800 mg Q8H PRN Administration lower back pain Magnesium Hydroxide 30 ml 10/30/20 23:58 Milk Of Magnesia 30 Ml Oral.Susp PO DAILY PRN Constipation Prazosin HCl 2 mg 11/04/20 21:00 11/04/20 21:13 Prazosin Hcl 1 Mg Capsule PO 2 mg BEDTIME MICHAEL Administration Protocol Risperidone 1 mg 10/31/20 21:00 11/05/20 08:18 Risperidone 1 Mg Tablet PO 1 mg BID MICHAEL Administration Trazodone HCl 50 mg 10/30/20 23:58 Trazodone Hcl 50 Mg Tablet PO BEDTIME PRN Insomnia Venlafaxine HCl 75 mg 11/04/20 09:00 11/05/20 08:18 Venlafaxine Hcl Er 37.5 Mg Cap.Er.24h PO 75 mg DAILY MICHAEL Administration Allergies Allergies Allergy/AdvReac Type Severity Reaction Status Date / Time acetaminophen [From TYLENOL] Allergy Mild STOMACH Verified 11/04/20 11:18 UPSET amoxicillin [AMOXICILLIN] Allergy Unknown SWELLING Verified 11/04/20 11:18 clavulanic acid Allergy Unknown Swelling Verified 11/04/20 11:18 [From AUGMENTIN] Assessment & Plan Assessment & Plan (1) Severe recurrent major depressive disorder with psychosis: Status: Acute Code(s): F33.3 - Major depressive disorder, recurrent, severe with psychotic symptoms Assessment and Plan: 1. Continue cross taper from sertraline to effexor- increase effexor to 75 mg po daily 2. Continue risperidone 1mg po BID 3. continue prazosin to 2mg po qhs on 11/04 4. start remron 7.5mg po qhs for sleep. (2) Opiate dependence, continuous: Status: Acute Code(s): F11.20 - Opioid dependence, uncomplicated Assessment and Plan: wants to take suboxone all in AM, no divided dose (3) Cocaine abuse: Status: Acute Code(s): F14.10 - Cocaine abuse, uncomplicated Greater than 50% of the session was spent on counseling and/or coordination of care Reason for contiued inpatient stay Substantial Risk for: harm to self
[2020-11-05 18:00] VITALS: BP 127/85; PULSE 68; TEMP 36.4; O2SAT 96
[2020-11-05 21:24] VITALS: BP 127/85; PULSE 68
[2020-11-05] MEDS: Prazosin HCL 1 MG CAPSULE 2 MG PO (21:24)
--- NOTE | 2020-11-05 23:23 | PC.NURSE ---
jeni denson ''i want to see if i can sleep''
[2020-11-06 03:15] VITALS: BP 119/75; PULSE 70; RESP 16; TEMP 36.3; O2SAT 97
[2020-11-06] MEDS: hydrOXYzine HCL 25 MG TABLET PO (03:17)
[2020-11-06] MEDS: Buprenorphine/Naloxone 8/2 mg FILM 2 FILM SUBLINGUAL (09:39)
[2020-11-06] MEDS: Venlafaxine HCl ER 37.5 MG CAP.ER.24H 75 MG PO (09:40)
[2020-11-06] MEDS: busPIRone HCl 5 MG TABLET 15 MG PO ×3 (09:40→21:17)
[2020-11-06] MEDS: Gabapentin 600 MG TABLET PO ×3 (09:40→21:16)
[2020-11-06] MEDS: risperiDONE 1 MG TABLET PO (09:40)
[2020-11-06 11:27] VITALS: BMI 29.5
--- NOTE | 2020-11-06 17:44 | HO.PSYCHPN ---
Subjective Subjective Date of Service: 11/06/20 Reason For Visit: Bipolar dx opiate dep Interim History: Pt continues to endorse depressed mood, anhedonia, passive suicidal ideation. He does report that voices have decreased, and now are more mumbles. He denies plan or intent to hurt himself. He has been more visible in the unit and has attended some groups. He reports fair sleep last night- did not take remeron because it was too early at 9:00pm but thinks that at 10pm would be better. Review of Systems Review of Systems Constitutional : No Weight loss, No Fever, No Chills, No Night Sweats, No Fatigue, No Malaise ENT/Mouth : No Hearing loss, No Ear Pain, No Nasal Congestion, No Sinus Pain, No Hoarseness, No sore throat, No Rhinorrhea, No Swallowing Difficulty Eyes: No Eye Pain, No Swelling, No Redness, No Foreign Body, No Discharge, No Vision Changes Cardiovascular : No Chest Pain, No SOB, No Dyspnea on Exertion, No Orthopnea, No Edema, No Palpitations Respiratory : No Cough, No Sputum, No Wheezing, No Smoke Exposure, No Dyspnea Gastrointestinal : No Nausea, No Vomiting, No Diarrhea, No Constipation, No abdominal Pain, No Hematochezia, No Melena Genitourinary : no irregular bleeding, No Dysuria, No Urinary Frequency, No Hematuria, No Urinary Incontinence, No Urgency, No Flank Pain, No Urinary Flow Changes, No Hesitancy Musculoskeletal : No joint pain, No Myalgias, No Joint Swelling Skin : No Skin Lesions, No rash Neuro : No Weakness, No Numbness, No Paresthesias, No Loss of Consciousness, No Dizziness, No Headache Psych : Anxiety, depression, suicidal ideation, no HI, complaining of auditory hallucinations as well Heme/Lymph: No Bruising, No Bleeding,No Lymphadenopathy Endocrine : No Polyuria, No Polydipsia, No Temperature Intolerance Yes all other systems are reviewed and are negative Mental Status Exam Mental Status Exam Narrative: Appearance: wearing hospital gown, disheveled, in NAD Behavior: cooperative Psychomotor:no agitation or retardation noted Speech: clear, normal rate/rhythm/volume, spontaneous TP: linear TC: no signs of psychosis, hopeless/helpless Mood: depressed Affect: blunted, congruent VH/AH: pt reports auditory hallucinations, seeing shadows Delusions: none Insight/judgment: poor x 2. Memory/cog: alert, oriented x 3. Diagnostics Vital Signs (24Hr): Vital Signs - 24 hr 11/05/20 18:00 11/05/20 21:24 11/06/20 03:15 Temperature 97.6 F 97.4 F Pulse Rate 68 68 70 Respiratory Rate 16 Blood Pressure 127/85 127/85 119/75 Pulse Oximetry 96 97 Body Mass Index 29.5 Labs Results: 10/30/20 19:39 10/31/20 08:01 Medications Medications Current Medications Generic Name Dose Route Start Last Admin Trade Name Freq PRN Reason Stop Dose Admin Al Hydroxide/Mg Hydroxide 30 ml 10/30/20 23:58 Magnesium Hydrox/Alum Hydrox 30 Ml Oral.Susp PO Q6H PRN Heartburn/Nausea Buprenorphine/Naloxone 2 film 11/04/20 09:00 11/06/20 09:39 Buprenorphine/Naloxone 8/2 Mg Film SUBLINGUAL 2 film DAILY MICHAEL Administration Buspirone HCl 15 mg 10/30/20 21:00 11/06/20 14:40 Buspirone Hcl 5 Mg Tablet PO 15 mg TID MICHAEL Administration Gabapentin 600 mg 10/30/20 21:00 11/06/20 14:40 Gabapentin 600 Mg Tablet PO 600 mg TID MICHAEL Administration Hydroxyzine HCl 25 mg 10/30/20 23:58 11/06/20 03:17 Hydroxyzine Hcl 25 Mg Tablet PO 25 mg BEDTIME PRN Administration Anxiety Ibuprofen 800 mg 11/02/20 18:43 11/03/20 21:07 Ibuprofen 800 Mg Tablet PO 800 mg Q8H PRN Administration lower back pain Magnesium Hydroxide 30 ml 10/30/20 23:58 Milk Of Magnesia 30 Ml Oral.Susp PO DAILY PRN Constipation Mirtazapine 7.5 mg 11/06/20 17:42 Mirtazapine 7.5 Mg Tablet PO BEDTIME PRN sleep Prazosin HCl 2 mg 11/04/20 21:00 11/05/20 21:24 Prazosin Hcl 1 Mg Capsule PO 2 mg BEDTIME MICHAEL Administration Protocol Risperidone 2 mg 11/06/20 21:00 Risperidone 2 Mg Tablet PO BEDTIME MICHAEL Venlafaxine HCl 75 mg 11/04/20 09:00 11/06/20 09:40 Venlafaxine Hcl Er 37.5 Mg Cap.Er.24h PO 75 mg DAILY MICHAEL Administration Allergies Allergies Allergy/AdvReac Type Severity Reaction Status Date / Time acetaminophen [From TYLENOL] Allergy Mild STOMACH Verified 11/04/20 11:18 UPSET amoxicillin [AMOXICILLIN] Allergy Unknown SWELLING Verified 11/04/20 11:18 clavulanic acid Allergy Unknown Swelling Verified 11/04/20 11:18 [From AUGMENTIN] Assessment & Plan Assessment & Plan (1) Severe recurrent major depressive disorder with psychosis: Status: Acute Code(s): F33.3 - Major depressive disorder, recurrent, severe with psychotic symptoms Assessment and Plan: 1. Continue effexor to 75 mg po daily 2. Increase risperidone 1mg po daily and 2mg po qhs 3. continue prazosin to 2mg po qhs on 11/04 4. continue remeron 7.5mg po qhs for sleep. (2) Opiate dependence, continuous: Status: Acute Code(s): F11.20 - Opioid dependence, uncomplicated Assessment and Plan: wants to take suboxone all in AM, no divided dose (3) Cocaine abuse: Status: Acute Code(s): F14.10 - Cocaine abuse, uncomplicated Greater than 50% of the session was spent on counseling and/or coordination of care Reason for contiued inpatient stay Substantial Risk for: harm to self
[2020-11-06 21:15] VITALS: BP 116/74; PULSE 68; TEMP 36.6
[2020-11-06 21:17] VITALS: BP 116/74; PULSE 68
[2020-11-06] MEDS: Prazosin HCL 1 MG CAPSULE 2 MG PO (21:17)
[2020-11-06] MEDS: risperiDONE 2 MG TABLET PO (21:17)
[2020-11-07 06:00] VITALS: BP 111/62; PULSE 63; RESP 16; TEMP 36.9; O2SAT 96
[2020-11-07] MEDS: Venlafaxine HCl ER 37.5 MG CAP.ER.24H 75 MG PO (09:09)
[2020-11-07] MEDS: risperiDONE 1 MG TABLET PO (09:09)
[2020-11-07] MEDS: Gabapentin 600 MG TABLET PO ×3 (09:09→20:28)
[2020-11-07] MEDS: busPIRone HCl 5 MG TABLET 15 MG PO ×3 (09:10→20:28)
[2020-11-07] MEDS: Buprenorphine/Naloxone 8/2 mg FILM 2 FILM SUBLINGUAL (09:11)
--- NOTE | 2020-11-07 15:54 | P.PNPSI_ITS ---
Subjective Subjective Date of Service: 11/07/20 Reason For Visit: Bipolar dx opiate dep Interim History: Pt continues to endorse depressed mood, anhedonia, hopeless/helpless, passive suicidal ideation. He states this morning he felt very hopeless and had more strong suicidal thoughts. He agrees to let staff know if not feeling safe in the unit. He reports improved sleep last night. He re ports AH, but less intensity. He has been visible in the unit, has attended some groups. He continues to endorse motivation for substance use treatment. Review of Systems Review of Systems Constitutional : No Weight loss, No Fever, No Chills, No Night Sweats, No Fatigue, No Malaise ENT/Mouth : No Hearing loss, No Ear Pain, No Nasal Congestion, No Sinus Pain, No Hoarseness, No sore throat, No Rhinorrhea, No Swallowing Difficulty Eyes: No Eye Pain, No Swelling, No Redness, No Foreign Body, No Discharge, No Vision Changes Cardiovascular : No Chest Pain, No SOB, No Dyspnea on Exertion, No Orthopnea, No Edema, No Palpitations Respiratory : No Cough, No Sputum, No Wheezing, No Smoke Exposure, No Dyspnea Gastrointestinal : No Nausea, No Vomiting, No Diarrhea, No Constipation, No abdominal Pain, No Hematochezia, No Melena Genitourinary : no irregular bleeding, No Dysuria, No Urinary Frequency, No Hematuria, No Urinary Incontinence, No Urgency, No Flank Pain, No Urinary Flow Changes, No Hesitancy Musculoskeletal : No joint pain, No Myalgias, No Joint Swelling Skin : No Skin Lesions, No rash Neuro : No Weakness, No Numbness, No Paresthesias, No Loss of Consciousness, No Dizziness, No Headache Psych : Anxiety, depression, suicidal ideation, no HI, complaining of auditory hallucinations as well Heme/Lymph: No Bruising, No Bleeding,No Lymphadenopathy Endocrine : No Polyuria, No Polydipsia, No Temperature Intolerance Yes all other systems are reviewed and are negative Mental Status Exam Mental Status Exam Narrative: Appearance: wearing hospital gown, disheveled, in NAD Behavior: cooperative Psychomotor:no agitation or retardation noted Speech: clear, normal rate/rhythm/volume, spontaneous TP: linear TC: no signs of psychosis, hopeless/helpless Mood: depressed Affect: blunted, congruent VH/AH: pt reports auditory hallucinations, seeing shadows Delusions: none Insight/judgment: poor x 2. Memory/cog: alert, oriented x 3. Diagnostics Vital Signs (24Hr): Vital Signs - 24 hr 11/06/20 21:15 11/06/20 21:17 11/07/20 06:00 Temperature 97.8 F 98.4 F Pulse Rate 68 68 63 Respiratory Rate 16 Blood Pressure 116/74 116/74 111/62 Pulse Oximetry 96 Body Mass Index 29.5 Labs Results: 10/30/20 19:39 10/31/20 08:01 Medications Medications Current Medications Generic Name Dose Route Start Last Admin Trade Name Freq PRN Reason Stop Dose Admin Al Hydroxide/Mg Hydroxide 30 ml 10/30/20 23:58 Magnesium Hydrox/Alum Hydrox 30 Ml Oral.Susp PO Q6H PRN Heartburn/Nausea Buprenorphine/Naloxone 2 film 11/04/20 09:00 11/07/20 09:11 Buprenorphine/Naloxone 8/2 Mg Film SUBLINGUAL 2 film DAILY MICHAEL Administration Buspirone HCl 15 mg 10/30/20 21:00 11/07/20 14:03 Buspirone Hcl 5 Mg Tablet PO 15 mg TID MICHAEL Administration Gabapentin 600 mg 10/30/20 21:00 11/07/20 14:03 Gabapentin 600 Mg Tablet PO 600 mg TID MICHAEL Administration Hydroxyzine HCl 25 mg 10/30/20 23:58 11/06/20 03:17 Hydroxyzine Hcl 25 Mg Tablet PO 25 mg BEDTIME PRN Administration Anxiety Ibuprofen 800 mg 11/02/20 18:43 11/03/20 21:07 Ibuprofen 800 Mg Tablet PO 800 mg Q8H PRN Administration lower back pain Magnesium Hydroxide 30 ml 10/30/20 23:58 Milk Of Magnesia 30 Ml Oral.Susp PO DAILY PRN Constipation Mirtazapine 7.5 mg 11/06/20 17:42 Mirtazapine 7.5 Mg Tablet PO BEDTIME PRN sleep Prazosin HCl 2 mg 11/04/20 21:00 11/06/20 21:17 Prazosin Hcl 1 Mg Capsule PO 2 mg BEDTIME MICHAEL Administration Protocol Risperidone 2 mg 11/06/20 21:00 11/06/20 21:17 Risperidone 2 Mg Tablet PO 2 mg BEDTIME MICHAEL Administration Risperidone 1 mg 11/07/20 09:00 11/07/20 09:09 Risperidone 1 Mg Tablet PO 1 mg DAILY MICHAEL Administration Venlafaxine HCl 75 mg 11/04/20 09:00 11/07/20 09:09 Venlafaxine Hcl Er 37.5 Mg Cap.Er.24h PO 75 mg DAILY MICHAEL Administration Allergies Allergies Allergy/AdvReac Type Severity Reaction Status Date / Time acetaminophen [From TYLENOL] Allergy Mild STOMACH Verified 11/04/20 11:18 UPSET amoxicillin [AMOXICILLIN] Allergy Unknown SWELLING Verified 11/04/20 11:18 clavulanic acid Allergy Unknown Swelling Verified 11/04/20 11:18 [From AUGMENTIN] Assessment & Plan Assessment & Plan (1) Severe recurrent major depressive disorder with psychosis: Status: Acute Code(s): F33.3 - Major depressive disorder, recurrent, severe with psychotic symptoms Assessment and Plan: 1. Continue effexor to 75 mg po daily 2. Continue risperidone 1mg po daily and 2mg po qhs 3. continue prazosin to 2mg po qhs on 11/04 4. continue remeron 7.5mg po qhs for sleep. (2) Opiate dependence, continuous: Status: Acute Code(s): F11.20 - Opioid dependence, uncomplicated Assessment and Plan: wants to take suboxone all in AM, no divided dose (3) Cocaine abuse: Status: Acute Code(s): F14.10 - Cocaine abuse, uncomplicated Greater than 50% of the session was spent on counseling and/or coordination of care Reason for contiued inpatient stay Substantial Risk for: harm to self
[2020-11-07 18:00] VITALS: BP 113/66; PULSE 82; TEMP 36.6
[2020-11-07 20:15] VITALS: BP 120/70; PULSE 70
[2020-11-07] MEDS: Prazosin HCL 1 MG CAPSULE 2 MG PO (20:15)
[2020-11-07] MEDS: risperiDONE 2 MG TABLET PO (20:28)
[2020-11-08 06:10] VITALS: BP 120/67; PULSE 67; RESP 16; TEMP 36.4; O2SAT 96
[2020-11-08] MEDS: Gabapentin 600 MG TABLET PO ×3 (08:36→21:01)
[2020-11-08] MEDS: busPIRone HCl 5 MG TABLET 15 MG PO ×3 (08:36→21:00)
[2020-11-08] MEDS: Venlafaxine HCl ER 37.5 MG CAP.ER.24H 75 MG PO (08:36)
[2020-11-08] MEDS: risperiDONE 1 MG TABLET PO (08:36)
[2020-11-08] MEDS: Buprenorphine/Naloxone 8/2 mg FILM 2 FILM SUBLINGUAL (09:03)
[2020-11-08] MEDS: Ibuprofen 800 MG TABLET PO (11:43)
--- NOTE | 2020-11-08 12:11 | P.PNPSI_ITS ---
Subjective Subjective Date of Service: 11/08/20 Reason For Visit: Bipolar dx opiate dep Interim History: 11/08/2020: Patient reports feeling depressed. Intensity of suicidal ideation is less. Patient feels a little unstable. But feels safe on the unit. He has periods of anxiety. The patient complains of poor sleep and intrusive nightmares. 11/07/2020: Pt continues to endorse depressed mood, anhedonia, hopeless/helpless, passive suicidal ideation. He states this morning he felt bella y hopeless and had more strong suicidal thoughts. He agrees to let staff know if not feeling safe in the unit. He reports improved sleep last night. He reports AH, but less intensity. He has been visible in the unit, has attended some groups. He continues to endorse motivation for substance use treatment. Review of Systems Review of Systems Constitutional : No Weight loss, No Fever, No Chills, No Night Sweats, No Fatigue, No Malaise ENT/Mouth : No Hearing loss, No Ear Pain, No Nasal Congestion, No Sinus Pain, No Hoarseness, No sore throat, No Rhinorrhea, No Swallowing Difficulty Eyes: No Eye Pain, No Swelling, No Redness, No Foreign Body, No Discharge, No Vision Changes Cardiovascular : No Chest Pain, No SOB, No Dyspnea on Exertion, No Orthopnea, No Edema, No Palpitations Respiratory : No Cough, No Sputum, No Wheezing, No Smoke Exposure, No Dyspnea Gastrointestinal : No Nausea, No Vomiting, No Diarrhea, No Constipation, No abdominal Pain, No Hematochezia, No Melena Genitourinary : no irregular bleeding, No Dysuria, No Urinary Frequency, No Hematuria, No Urinary Incontinence, No Urgency, No Flank Pain, No Urinary Flow Changes, No Hesitancy Musculoskeletal : No joint pain, No Myalgias, No Joint Swelling Skin : No Skin Lesions, No rash Neuro : No Weakness, No Numbness, No Paresthesias, No Loss of Consciousness, No Dizziness, No Headache Psych : Anxiety, depression, suicidal ideation, no HI, complaining of auditory hallucinations as well Heme/Lymph: No Bruising, No Bleeding,No Lymphadenopathy Endocrine : No Polyuria, No Polydipsia, No Temperature Intolerance Yes all other systems are reviewed and are negative Mental Status Exam Mental Status Exam Narrative: Appearance: wearing hospital gown, disheveled, in NAD Behavior: cooperative Psychomotor:no agitation or retardation noted Speech: clear, normal rate/rhythm/volume, spontaneous TP: linear TC: no signs of psychosis, hopeless/helpless Mood: depressed Affect: blunted, congruent VH/AH: pt reports auditory hallucinations, seeing shadows Delusions: none Insight/judgment: poor x 2. Memory/cog: alert, oriented x 3. Patient Appearance: Appropriate Patient Orientation: Person, Place, Time and Situation Level of Consciousness: Awake Patient Behavior: Appropriate, Passive and Anxious Mood Description: Withdrawn, Depressed and Anxious Affect Description: Depressed and Anxious Diagnostics Vital Signs (24Hr): Vital Signs - 24 hr 11/07/20 18:00 11/07/20 20:15 11/08/20 06:10 Temperature 98 F 97.5 F Pulse Rate 82 70 67 Respiratory Rate 16 Blood Pressure 113/66 120/70 120/67 Pulse Oximetry 96 Body Mass Index 29.5 Labs Results: 10/30/20 19:39 10/31/20 08:01 Medications Medications Current Medications Generic Name Dose Route Start Last Admin Trade Name Freq PRN Reason Stop Dose Admin Al Hydroxide/Mg Hydroxide 30 ml 10/30/20 23:58 Magnesium Hydrox/Alum Hydrox 30 Ml Oral.Susp PO Q6H PRN Heartburn/Nausea Buprenorphine/Naloxone 2 film 11/04/20 09:00 11/08/20 09:03 Buprenorphine/Naloxone 8/2 Mg Film SUBLINGUAL 2 film DAILY MICHAEL Administration Buspirone HCl 15 mg 10/30/20 21:00 11/08/20 08:36 Buspirone Hcl 5 Mg Tablet PO 15 mg TID MICHAEL Administration Gabapentin 600 mg 10/30/20 21:00 11/08/20 08:36 Gabapentin 600 Mg Tablet PO 600 mg TID MICHAEL Administration Hydroxyzine HCl 25 mg 10/30/20 23:58 11/06/20 03:17 Hydroxyzine Hcl 25 Mg Tablet PO 25 mg BEDTIME PRN Administration Anxiety Ibuprofen 800 mg 11/02/20 18:43 11/08/20 11:43 Ibuprofen 800 Mg Tablet PO 800 mg Q8H PRN Administration lower back pain Magnesium Hydroxide 30 ml 10/30/20 23:58 Milk Of Magnesia 30 Ml Oral.Susp PO DAILY PRN Constipation Mirtazapine 7.5 mg 11/06/20 17:42 Mirtazapine 7.5 Mg Tablet PO BEDTIME PRN sleep Prazosin HCl 2 mg 11/04/20 21:00 11/07/20 20:15 Prazosin Hcl 1 Mg Capsule PO 2 mg BEDTIME MICHAEL Administration Protocol Risperidone 2 mg 11/06/20 21:00 11/07/20 20:28 Risperidone 2 Mg Tablet PO 2 mg BEDTIME MICHAEL Administration Risperidone 1 mg 11/07/20 09:00 11/08/20 08:36 Risperidone 1 Mg Tablet PO 1 mg DAILY MICHAEL Administration Venlafaxine HCl 75 mg 11/04/20 09:00 11/08/20 08:36 Venlafaxine Hcl Er 37.5 Mg Cap.Er.24h PO 75 mg DAILY MICHAEL Administration Allergies Allergies Allergy/AdvReac Type Severity Reaction Status Date / Time acetaminophen [From TYLENOL] Allergy Mild STOMACH Verified 11/04/20 11:18 UPSET amoxicillin [AMOXICILLIN] Allergy Unknown SWELLING Verified 11/04/20 11:18 clavulanic acid Allergy Unknown Swelling Verified 11/04/20 11:18 [From AUGMENTIN] Assessment & Plan Assessment & Plan (1) Severe recurrent major depressive disorder with psychosis: Status: Acute Code(s): F33.3 - Major depressive disorder, recurrent, severe with psychotic symptoms Assessment and Plan: Increase mirtazapine to 15 mg at bedtime and prazosin to 2 mg at bedtime (2) Opiate dependence, continuous: Status: Acute Code(s): F11.20 - Opioid dependence, uncomplicated Assessment and Plan: wants to take suboxone all in AM, no divided dose (3) Cocaine abuse: Status: Acute Code(s): F14.10 - Cocaine abuse, uncomplicated Greater than 50% of the session was spent on counseling and/or coordination of care Reason for contiued inpatient stay Substantial Risk for: harm to self
[2020-11-08 18:00] VITALS: BP 114/75; PULSE 66; RESP 16; TEMP 36.7
[2020-11-08 21:00] VITALS: BP 124/83; PULSE 68
[2020-11-08] MEDS: Prazosin HCL 1 MG CAPSULE 3 MG PO (21:00)
[2020-11-08] MEDS: risperiDONE 2 MG TABLET PO (21:01)
[2020-11-08] MEDS: Mirtazapine 15 MG TABLET PO (23:21)
[2020-11-09 06:20] VITALS: BP 104/66; PULSE 64; RESP 18; TEMP 36.8; O2SAT 95
--- NOTE | 2020-11-09 08:03 | HO.PSYCHPN ---
Subjective Subjective Date of Service: 11/09/20 Reason For Visit: Bipolar dx opiate dep Interim History: 11/09/2020: Patient reports ongoing anxiety and depression. trying to work the program. Has intermittent thoughts of self-harm and hopelessness but is able to manage and cope with them. Will let staff know if level of anxiety increases. Slept better with medication changes. 11/08/2020: Patient reports feeling depressed. Intensity of suicidal ideation is less. Patient feels a little unstable. But feels safe on the unit. He has periods of anxiety. The patient complains of poor sleep and intrusive nightmares. 11/07/2020: Pt continues to endorse depressed mood, anhedonia, hopeless/helpless, passive suicidal ideation. He states this morning he felt very hopeless and had more strong suicidal thoughts. He agrees to let staff know if not feeling safe in the unit. He reports improved sleep last night. He reports AH, but less intensity. He has been visible in the unit, has attended some groups. He continues to endorse motivation for substance use treatment. Review of Systems Review of Systems Constitutional : No Weight loss, No Fever, No Chills, No Night Sweats, No Fatigue, No Malaise ENT/Mouth : No Hearing loss, No Ear Pain, No Nasal Congestion, No Sinus Pain, No Hoarseness, No sore throat, No Rhinorrhea, No Swallowing Difficulty Eyes: No Eye Pain, No Swelling, No Redness, No Foreign Body, No Discharge, No Vision Changes Cardiovascular : No Chest Pain, No SOB, No Dyspnea on Exertion, No Orthopnea, No Edema, No Palpitations Respiratory : No Cough, No Sputum, No Wheezing, No Smoke Exposure, No Dyspnea Gastrointestinal : No Nausea, No Vomiting, No Diarrhea, No Constipation, No abdominal Pain, No Hematochezia, No Melena Genitourinary : no irregular bleeding, No Dysuria, No Urinary Frequency, No Hematuria, No Urinary Incontinence, No Urgency, No Flank Pain, No Urinary Flow Changes, No Hesitancy Musculoskeletal : No joint pain, No Myalgias, No Joint Swelling Skin : No Skin Lesions, No rash Neuro : No Weakness, No Numbness, No Paresthesias, No Loss of Consciousness, No Dizziness, No Headache Psych : Anxiety, depression, suicidal ideation, no HI, complaining of auditory hallucinations as well Heme/Lymph: No Bruising, No Bleeding,No Lymphadenopathy Endocrine : No Polyuria, No Polydipsia, No Temperature Intolerance Yes all other systems are reviewed and are negative Mental Status Exam Mental Status Exam Narrative: Appearance: wearing hospital gown, disheveled, in NAD Behavior: cooperative Psychomotor:no agitation or retardation noted Speech: clear, normal rate/rhythm/volume, spontaneous TP: linear TC: no signs of psychosis, hopeless/helpless Mood: depressed Affect: blunted, congruent VH/AH: pt reports auditory hallucinations, seeing shadows Delusions: none Insight/judgment: poor x 2. Memory/cog: alert, oriented x 3. Patient Appearance: Appropriate Patient Orientation: Person, Place, Time and Situation Level of Consciousness: Awake Patient Behavior: Appropriate, Passive and Anxious Mood Description: Withdrawn, Depressed and Anxious Affect Description: Depressed and Anxious Diagnostics Vital Signs (24Hr): Vital Signs - 24 hr 11/08/20 18:00 11/08/20 21:00 11/09/20 06:20 Temperature 98.0 F 98.2 F Pulse Rate 66 68 64 Respiratory Rate 16 18 Blood Pressure 114/75 124/83 104/66 Pulse Oximetry 95 Body Mass Index 29.5 Labs Results: 10/30/20 19:39 10/31/20 08:01 Medications Medications Current Medications Generic Name Dose Route Start Last Admin Trade Name Freq PRN Reason Stop Dose Admin Al Hydroxide/Mg Hydroxide 30 ml 10/30/20 23:58 Magnesium Hydrox/Alum Hydrox 30 Ml Oral.Susp PO Q6H PRN Heartburn/Nausea Buprenorphine/Naloxone 2 film 11/04/20 09:00 11/08/20 09:03 Buprenorphine/Naloxone 8/2 Mg Film SUBLINGUAL 2 film DAILY MICHAEL Administration Buspirone HCl 15 mg 10/30/20 21:00 11/08/20 21:00 Buspirone Hcl 5 Mg Tablet PO 15 mg TID MICHAEL Administration Gabapentin 600 mg 10/30/20 21:00 11/08/20 21:01 Gabapentin 600 Mg Tablet PO 600 mg TID MICHAEL Administration Hydroxyzine HCl 25 mg 10/30/20 23:58 11/06/20 03:17 Hydroxyzine Hcl 25 Mg Tablet PO 25 mg BEDTIME PRN Administration Anxiety Ibuprofen 800 mg 11/02/20 18:43 11/08/20 11:43 Ibuprofen 800 Mg Tablet PO 800 mg Q8H PRN Administration lower back pain Magnesium Hydroxide 30 ml 10/30/20 23:58 Milk Of Magnesia 30 Ml Oral.Susp PO DAILY PRN Constipation Mirtazapine 15 mg 11/08/20 21:00 11/08/20 23:21 Mirtazapine 15 Mg Tablet PO 15 mg BEDTIME MICHAEL Administration Prazosin HCl 3 mg 11/08/20 21:00 11/08/20 21:00 Prazosin Hcl 1 Mg Capsule PO 3 mg BEDTIME MICHAEL Administration Protocol Risperidone 2 mg 11/06/20 21:00 11/08/20 21:01 Risperidone 2 Mg Tablet PO 2 mg BEDTIME MICHAEL Administration Risperidone 1 mg 11/07/20 09:00 11/08/20 08:36 Risperidone 1 Mg Tablet PO 1 mg DAILY MICHAEL Administration Venlafaxine HCl 75 mg 11/04/20 09:00 11/08/20 08:36 Venlafaxine Hcl Er 37.5 Mg Cap.Er.24h PO 75 mg DAILY MICHAEL Administration Allergies Allergies Allergy/AdvReac Type Severity Reaction Status Date / Time acetaminophen [From TYLENOL] Allergy Mild STOMACH Verified 11/04/20 11:18 UPSET amoxicillin [AMOXICILLIN] Allergy Unknown SWELLING Verified 11/04/20 11:18 clavulanic acid Allergy Unknown Swelling Verified 11/04/20 11:18 [From AUGMENTIN] Assessment & Plan Assessment & Plan (1) Severe recurrent major depressive disorder with psychosis: Status: Acute Code(s): F33.3 - Major depressive disorder, recurrent, severe with psychotic symptoms Assessment and Plan: Increase mirtazapine to 15 mg at bedtime and prazosin to 2 mg at bedtime (2) Opiate dependence, continuous: Status: Acute Code(s): F11.20 - Opioid dependence, uncomplicated Assessment and Plan: wants to take suboxone all in AM, no divided dose (3) Cocaine abuse: Status: Acute Code(s): F14.10 - Cocaine abuse, uncomplicated Greater than 50% of the session was spent on counseling and/or coordination of care Reason for contiued inpatient stay Substantial Risk for: harm to self
[2020-11-09] MEDS: busPIRone HCl 5 MG TABLET 15 MG PO ×3 (09:46→20:20)
[2020-11-09] MEDS: Venlafaxine HCl ER 37.5 MG CAP.ER.24H 75 MG PO (09:46)
[2020-11-09] MEDS: Buprenorphine/Naloxone 8/2 mg FILM 2 FILM SUBLINGUAL (09:47)
[2020-11-09] MEDS: Gabapentin 600 MG TABLET PO ×3 (09:47→20:20)
[2020-11-09] MEDS: risperiDONE 1 MG TABLET PO (09:47)
[2020-11-09 18:00] VITALS: BP 142/89; PULSE 75; RESP 18; TEMP 36.3
[2020-11-09 20:20] VITALS: BP 117/81; PULSE 75
[2020-11-09] MEDS: Prazosin HCL 1 MG CAPSULE 3 MG PO (20:20)
[2020-11-09] MEDS: risperiDONE 2 MG TABLET PO (20:20)
[2020-11-09] MEDS: Mirtazapine 15 MG TABLET PO (20:20)
[2020-11-10 06:00] VITALS: BP 117/58; PULSE 70; RESP 16; TEMP 36.6; O2SAT 97
[2020-11-10] MEDS: Buprenorphine/Naloxone 8/2 mg FILM 2 FILM SUBLINGUAL (09:31)
[2020-11-10] MEDS: Venlafaxine HCl ER 37.5 MG CAP.ER.24H 75 MG PO (09:31)
[2020-11-10] MEDS: Gabapentin 600 MG TABLET PO ×3 (09:31→20:34)
[2020-11-10] MEDS: risperiDONE 1 MG TABLET PO (09:31)
[2020-11-10] MEDS: busPIRone HCl 5 MG TABLET 15 MG PO ×3 (09:32→20:34)
[2020-11-10 18:00] VITALS: BP 112/68; PULSE 81; RESP 16; TEMP 36.9; O2SAT 96
--- NOTE | 2020-11-10 18:37 | HO.PSYCHPN ---
Subjective Subjective Date of Service: 11/10/20 Reason For Visit: Bipolar dx opiate dep Subjective Notes: Conditional Voluntary Interim History: Pt reports decrease symptoms of depression. He reports less intermittent suicidal ideation and denies a plan to hurt himself. He is visible in the unit but does not attend groups. He reports less AH. He denies CAH. He is eating well. He reports frequently waking up. Pt reports remeron causing daytime sedation and not taking but initially had reported that this medication had worked well. Medication Compliance: Yes Side effects from medications: No Attending Groups: No Review of Systems Review of Systems Constitutional : No Weight loss, No Fever, No Chills, No Night Sweats, No Fatigue, No Malaise ENT/Mouth : No Hearing loss, No Ear Pain, No Nasal Congestion, No Sinus Pain, No Hoarseness, No sore throat, No Rhinorrhea, No Swallowing Difficulty Eyes: No Eye Pain, No Swelling, No Redness, No Foreign Body, No Discharge, No Vision Changes Cardiovascular : No Chest Pain, No SOB, No Dyspnea on Exertion, No Orthopnea, No Edema, No Palpitations Respiratory : No Cough, No Sputum, No Wheezing, No Smoke Exposure, No Dyspnea Gastrointestinal : No Nausea, No Vomiting, No Diarrhea, No Constipation, No abdominal Pain, No Hematochezia, No Melena Genitourinary : no irregular bleeding, No Dysuria, No Urinary Frequency, No Hematuria, No Urinary Incontinence, No Urgency, No Flank Pain, No Urinary Flow Changes, No Hesitancy Musculoskeletal : No joint pain, No Myalgias, No Joint Swelling Skin : No Skin Lesions, No rash Neuro : No Weakness, No Numbness, No Paresthesias, No Loss of Consciousness, No Dizziness, No Headache Psych : Anxiety, depression, suicidal ideation, no HI, complaining of auditory hallucinations as well Heme/Lymph: No Bruising, No Bleeding,No Lymphadenopathy Endocrine : No Polyuria, No Polydipsia, No Temperature Intolerance Yes all other systems are reviewed and are negative Mental Status Exam Mental Status Exam Narrative: Appearance: wearing hospital gown, disheveled, in NAD Behavior: cooperative Psychomotor:no agitation or retardation noted Speech: clear, normal rate/rhythm/volume, spontaneous TP: linear TC: no signs of psychosis, hopeless/helpless Mood: depressed Affect: brighter, non labile VH/AH: pt reports auditory hallucinations, seeing shadows Delusions: none Insight/judgment: poor x 2. Memory/cog: alert, oriented x 3. Diagnostics Vital Signs (24Hr): Vital Signs - 24 hr 11/09/20 20:20 11/10/20 06:00 Temperature 98 F Pulse Rate 75 70 Respiratory Rate 16 Blood Pressure 117/81 117/58 L Pulse Oximetry 97 Body Mass Index 29.5 Labs Results: 10/30/20 19:39 10/31/20 08:01 Medications Medications Current Medications Generic Name Dose Route Start Last Admin Trade Name Freq PRN Reason Stop Dose Admin Al Hydroxide/Mg Hydroxide 30 ml 10/30/20 23:58 Magnesium Hydrox/Alum Hydrox 30 Ml Oral.Susp PO Q6H PRN Heartburn/Nausea Buprenorphine/Naloxone 2 film 11/04/20 09:00 11/10/20 09:31 Buprenorphine/Naloxone 8/2 Mg Film SUBLINGUAL 2 film DAILY MICHAEL Administration Buspirone HCl 15 mg 10/30/20 21:00 11/10/20 15:12 Buspirone Hcl 5 Mg Tablet PO 15 mg TID MICHAEL Administration Gabapentin 600 mg 10/30/20 21:00 11/10/20 15:12 Gabapentin 600 Mg Tablet PO 600 mg TID MICHAEL Administration Hydroxyzine HCl 25 mg 10/30/20 23:58 11/06/20 03:17 Hydroxyzine Hcl 25 Mg Tablet PO 25 mg BEDTIME PRN Administration Anxiety Ibuprofen 800 mg 11/02/20 18:43 11/08/20 11:43 Ibuprofen 800 Mg Tablet PO 800 mg Q8H PRN Administration lower back pain Magnesium Hydroxide 30 ml 10/30/20 23:58 Milk Of Magnesia 30 Ml Oral.Susp PO DAILY PRN Constipation Mirtazapine 15 mg 11/08/20 21:00 11/09/20 20:20 Mirtazapine 15 Mg Tablet PO 15 mg BEDTIME MICHAEL Administration Prazosin HCl 3 mg 11/08/20 21:00 11/09/20 20:20 Prazosin Hcl 1 Mg Capsule PO 3 mg BEDTIME MICHAEL Administration Protocol Risperidone 2 mg 11/06/20 21:00 11/09/20 20:20 Risperidone 2 Mg Tablet PO 2 mg BEDTIME MICHAEL Administration Risperidone 1 mg 11/07/20 09:00 11/10/20 09:31 Risperidone 1 Mg Tablet PO 1 mg DAILY MICHAEL Administration Venlafaxine HCl 75 mg 11/04/20 09:00 11/10/20 09:31 Venlafaxine Hcl Er 37.5 Mg Cap.Er.24h PO 75 mg DAILY MICHAEL Administration Allergies Allergies Allergy/AdvReac Type Severity Reaction Status Date / Time acetaminophen [From TYLENOL] Allergy Mild STOMACH Verified 11/04/20 11:18 UPSET amoxicillin [AMOXICILLIN] Allergy Unknown SWELLING Verified 11/04/20 11:18 clavulanic acid Allergy Unknown Swelling Verified 11/04/20 11:18 [From AUGMENTIN] Assessment & Plan Assessment & Plan (1) Severe recurrent major depressive disorder with psychosis: Status: Acute Code(s): F33.3 - Major depressive disorder, recurrent, severe with psychotic symptoms Assessment and Plan: 1. Continue current medications. (2) Opiate dependence, continuous: Status: Acute Code(s): F11.20 - Opioid dependence, uncomplicated Assessment and Plan: wants to take suboxone all in AM, no divided dose (3) Cocaine abuse: Status: Acute Code(s): F14.10 - Cocaine abuse, uncomplicated Greater than 50% of the session was spent on counseling and/or coordination of care Reason for contiued inpatient stay Substantial Risk for: harm to self
[2020-11-10 20:34] VITALS: BP 120/80; PULSE 77
[2020-11-10] MEDS: Prazosin HCL 1 MG CAPSULE 3 MG PO (20:34)
[2020-11-10] MEDS: risperiDONE 2 MG TABLET PO (20:34)
[2020-11-10] MEDS: Mirtazapine 15 MG TABLET PO (20:34)
[2020-11-11 06:15] VITALS: BP 113/70; PULSE 69; RESP 16; TEMP 36.7; O2SAT 96
[2020-11-11] MEDS: busPIRone HCl 5 MG TABLET 15 MG PO (09:07)
[2020-11-11] MEDS: Gabapentin 600 MG TABLET PO (09:07)
[2020-11-11] MEDS: Venlafaxine HCl ER 37.5 MG CAP.ER.24H 75 MG PO (09:08)
[2020-11-11] MEDS: risperiDONE 1 MG TABLET PO (09:08)
[2020-11-11] MEDS: Buprenorphine/Naloxone 8/2 mg FILM 2 FILM SUBLINGUAL (09:09)
--- NOTE | 2020-11-11 09:51 | PM.PSYDC ---
DS: Providers Provider Date of Service: 11/26/20 Date of admission: 10/30/20 23:15 Primary care physician: None Physician DS: Diagnosis Discharge Diagnosis (1) Severe recurrent major depressive disorder with psychosis: Status: Acute (2) Opiate dependence, continuous: Status: Acute (3) Cocaine abuse: Status: Acute DS: Medications Discharge Medications Home Medications: Home Medications Medication Instructions Recorded Confirmed buspirone 15 mg PO TID 10/30/20 10/30/20 gabapentin 600 mg PO TID 10/30/20 10/30/20 Previous Rx's Medication Instructions Recorded buprenorphine-naloxone [Suboxone] 2 film SUBLINGUAL DAILY #14 ea 11/11/20 mirtazapine 15 mg PO BEDTIME #1 tab 11/11/20 prazosin 3 mg PO BEDTIME #1 cap 11/11/20 risperidone 1 mg PO DAILY #1 tab 11/11/20 risperidone 2 mg PO BEDTIME #1 tab 11/11/20 venlafaxine 75 mg PO DAILY #1 cap 11/11/20 Discharge Plan Discharge Patient Disposition: Home, Self-Care Referrals: Therapy & Psychiatry: [facility] [Other] Suboxone: Dr. Felipe ([facility]) [Other] - 11/18/20 10:00 am Julissa Danielle MD [Physician] - 11/24/20 11:00 am (IN OFFICE) Discharge Medications: New buprenorphine-naloxone [Suboxone] 8-2 mg film 2 film sublingual DAILY Qty: 14 RF: 0 venlafaxine 37.5 mg Capsule,Extended Release 24hr 75 mg PO DAILY Qty: 1 RF: 0 prazosin 1 mg Capsule 3 mg PO BEDTIME Qty: 1 RF: 0 risperidone 2 mg Tablet 2 mg PO BEDTIME Qty: 1 RF: 0 mirtazapine 15 mg Tablet 15 mg PO BEDTIME Qty: 1 RF: 0 risperidone 1 mg Tablet 1 mg PO DAILY Qty: 1 RF: 0 Continued gabapentin 600 mg tablet 600 mg PO TID RF: 0 buspirone 15 mg tablet 15 mg PO TID RF: 0 Discontinued chlorpromazine 100 mg tablet 100 tab PO BEDTIME RF: 0 sertraline 100 mg tablet 100 mg PO QAM RF: 0 chlorpromazine 25 mg tablet 75 mg PO BID RF: 0 Discharge Orders: Discharge Order (Routine); Ordered 11/11/20 Ordered By: Neelam Sandy Diet: regular diet Activity on Discharge: As tolerated Stand Alone Forms: Patient Portal Discharge page, Community Support Care Plan Goals: 1. Follow up with referrals Health Concerns: 1. Follow up with PCP Plan of Treatment: 1. Follow up with referrals Discharge Date/Time: 11/11/20 12:12 Mental Status Exam Mental Status Exam Narrative: Appearance: wearing hospital gown, disheveled, in NAD Behavior: cooperative Psychomotor:no agitation or retardation noted Speech: clear, normal rate/rhythm/volume, spontaneous TP: linear TC: no signs of psychosis, future oriented Mood: better Affect: brighter, non labile VH/AH: less auditory hallucinations, seeing shadows Delusions: none Insight/judgment: poor x 2. Memory/cog: alert, oriented x 3. grossly intact to conversational testing. DS: Summary Hospital Course Hospital Course: HPI: Mr. Hill is a 44 year-old male with hx of mdd with psychosis and polysubstance use who self-presented to [facility] ED after he tried to hand himself at a family member's house and was stopped by them. Pt apparently left [facility] last week and quickly relapsed using cocaine, painkillers and alcohol. In the ED his utox was positive for cocaine and opiates. On the unit, pt reports he has been feeling increasingly more depressed, hopeless, helpless, anhedonia, suicidal ideation. He reports a recent suicide attempt back in April 2020 when he OD and was in ICU prior to being transferred to inpatient unit at [facility] in [facility]. He reports use of cocaine and opiates have increased in past year but he states he does not think he uses that much. He continues to endorse suicidal ideation but denies any plan or intent to hurt himself in the unit. He does report that if he were to be discharged he would kill himself. He presents with flat affect, poor eye contact. He reports hearing voices- telling him to hurt himself. He states voices are fairly new for the past year or so, when feeling depressed and get worse with cocaine. Past Psychiatric History: Inpatient: total of 7-10. HOSPITAL COURSE On the unit, Mr. Hill was placed on 15 minutes checks for safety. He presented with blunted affect. He reported AH, increased anxiety, hopeless/helpless. He continued to minimize effects of his substance use on mood. After discussing risks, benefits and alternative treatment options, Mr. Hill agreed to start Venlafaxine for depression, which he tolerated and was titrated to 112.5mg po daily. He was also started on risperidone for AH, which appear to worsen when pt feeling depressed. He reported passive SI, but denied any plan or intent ot hurt himself. He was also started on prazosin for nightmares. His affect gradually brighten. He reported decreased symptoms of depression and less anxious mood. He did not participate in groups but was visible in the unit. He did have poor insight in that he expected others to solve his problems without accountability. He also minimize substance use. He did agree to step down to residential substance use treatment program. Collateral information was gathered from family who reported that pt appear back to baseline and decline any safety concerns. There were no incidences of disruptive behaviors nor use of restraints. Time spent discussing smoking cessation with patient: 3 to 10 minutes Status at Discharge Cognitive/behavioral status at discharge: Pt's affect is brighter. He denies SI/HI, although continues to endorse depressed symptoms. His AH have decreased. No signs of aggression towards self or others. Functional status at discharge: independent ambulation Overall status at discharge: patient is progressing back to baseline Time Spent with Patient Time attestation: Total time spent providing and/or coordinating discharge services: Time spent: Greater than 30 minutes
== END 2020-11-11 12:12 | disposition home or self-care (01) | DRG 751 ==
LOC: HO.ED 10-30 22:03 → HO.PM5 10-30 23:25
PROVIDERS: Emergency Medicine; Nurse Practitioner Family; Admitting Provider Psychiatry & Neurology Psychiatry; Emergency Provider Emergency Medicine Emergency Medical Services; Visit Provider Social Worker
DX: F33.3 Major depressive disorder, recurrent, severe with psychotic symptoms (principal); R45.851 Suicidal ideations; F11.20 Opioid dependence, uncomplicated; F14.10 Cocaine abuse, uncomplicated; Z20.822 Contact with and (suspected) exposure to COVID-19; Z88.0 Allergy status to penicillin; Z88.6 Allergy status to analgesic agent; Z79.899 Other long term (current) drug therapy
CPT/HCPCS: 36415; 80053; 80061; 80076; 80307; 80320; 81003; 82248; 85025; 87635; 93005; 99285

== ENCOUNTER 2020-12-11 18:10 | Inpatient (IN) | payer OTHER, MEDICAID, SELFPAY ==
[2020-12-11 18:13] VITALS: BP 139/87; PULSE 111; RESP 18; TEMP 37.4; O2SAT 95; BMI 30.8
[2020-12-11 19:55] LABS: MANUAL DIFF FLAG NO
[2020-12-11 19:55] LABS: Amphetamine Screen Urine Not Detected (Not Detect); Barbiturates, Urine Not Detected (Not Detect); Benzodiazepines Screen Urine Not Detected (Not Detect); Cannabinoid Screen Urine Not Detected (Not Detect); Cocaine Screen Urine POSITIVE (Not Detect); Opiate Screen Urine POSITIVE (Not Detect); Phencyclidine Screen Urine Not Detected (Not Detect)
[2020-12-11 19:58] LABS: Basophils Absolute Auto 0.1 X10*3/uL (0.0-0.2); Basophils Percent Auto 0.6 % (0-2); Eosinophils Absolute Auto 0.2 X10*3/uL (0.0-0.4); Hematocrit 40.7 % (42-52); Imm Gran Abs Auto 0.02 X10*3/uL (0.00-0.03); Imm Gran Pct Auto 0.2 % (0.0-0.4); Lymphocytes Absolute Auto 1.9 X10*3/uL (1.2-4.9); Lymphocytes Percent Auto 21.8 % (20-40); Mean Corpuscular HGB Conc 34.4 g/dl (31.0-36.0); Mean Corpuscular Hemoglobin 31.5 pg (27.0-33.0); Mean Corpuscular Volume 91.7 fL (80-98); Mean Platelet Volume 10.2 fL (9.4-12.4); Monocytes Absolute Auto 0.6 X10*3/uL (0.1-1.2); Monocytes Percent Auto 6.9 % (2-11); Neutrophils Absolute Auto 6.1 X10*3/uL (2.0-8.3); Neutrophils Percent Auto 68.5 % (45-73); Platelet Count 245 X10*3/uL (160-400); Red Blood Count 4.44 X10*6/uL (4.60-5.80); Red Cell Distribution Width 12.7 % (11.0-16.0); White Blood Count 8.9 X10*3/uL (4.8-10.8)
[2020-12-11 20:19] LABS: Ethanol < 10 mg/dL
[2020-12-11 20:26] LABS: Alanine Aminotransferase 169 U/L (0-40); Alkaline Phosphatase 72 U/L (39-117); Anion Gap 14 (12-20); Aspartate Amino Transferase 156 U/L (5-37); Bilirubin Direct 0.3 mg/dL (0.0-0.5); Bilirubin Total 0.7 mg/dL (0.0-1.0); Blood Urea Nitrogen 11 mg/dL (9-16); Calcium 8.6 mg/dL (8.4-10.2); Carbon Dioxide 27 mmol/L (22-29); Chloride 101 mmol/L (96-108); Creatinine Clr Calc Pharmacy 140.4; Estimated Glomerular Filt Rate > 60; Glucose Random 145 mg/dL (60-115); Sodium 138 mmol/L (135-145); Total Protein 6.8 g/dL (6.5-8.0)
--- NOTE | 2020-12-11 21:21 | ED.PSYCH ---
HPI - Psych General Chief Complaint: Psychiatric Symptoms Stated Complaint: crisis Time Seen by Provider: 12/11/20 18:41 Source: patient Mode of arrival: ambulatory Limitations: no limitations History of Present Illness HPI Narrative: Patient presents to ED due to him hearing voices and also having mild suicidal thoughts. Patient has no plan on how he would kill himself. Patient admits to substance abuse. Patient is not homicidal Related Data Home Medications Medication Instructions Recorded Confirmed buspirone 15 mg PO TID 10/30/20 12/11/20 gabapentin 600 mg PO TID 10/30/20 12/11/20 prazosin 1 cap PO BEDTIME 12/11/20 12/11/20 venlafaxine 75 mg PO QAM 12/11/20 12/11/20 Previous Rx's Medication Instructions Recorded buprenorphine-naloxone [Suboxone] 2 film SUBLINGUAL DAILY #14 ea 11/11/20 mirtazapine 15 mg PO BEDTIME #1 tab 11/11/20 risperidone 1 mg PO DAILY #1 tab 11/11/20 risperidone 2 mg PO BEDTIME #1 tab 11/11/20 Allergies Allergy/AdvReac Type Severity Reaction Status Date / Time acetaminophen [From TYLENOL] Allergy Mild STOMACH Verified 11/04/20 11:18 UPSET amoxicillin [AMOXICILLIN] Allergy Unknown SWELLING Verified 11/04/20 11:18 clavulanic acid Allergy Unknown Swelling Verified 11/04/20 11:18 [From AUGMENTIN] Review of Systems Review of Systems: Yes all other systems are reviewed and are negative Constitutional: Constitutional: Reports as per HPI and Reports no additional constitutional complaints Eyes: Eyes: Reports as per HPI and Reports no additional eye complaints ENT: Reports system reviewed and no additional complaints, except as documented and Reports as per HPI Cardiovascular: Cardiovascular: Reports as per HPI and Reports no additional cardiovascular complaints Respiratory: Respiratory: Reports as per HPI and Reports no additional respiratory complaints Gastrointestinal: Gastrointestinal: Reports as per HPI and Reports no additional gastrointestinal complaints Genitourinary: Genitourinary: Reports no additional male genitourinary complaints and Reports as per HPI Musculoskeletal: Musculoskeletal: Reports no additional musculoskeletal complaints and Reports as per HPI Neurologic: Reports system reviewed and no additional complaints, except as documented and Reports as per HPI Psychiatric: Psychiatric: Reports no additional psychiatric complaints, Reports as per HPI and Reports suicidal ideation [facility] Past Medical History Medical History (Updated 12/12/20 @ 02:15 by SONYA Funes Alcohol abuse Anxiety PTSD (post-traumatic stress disorder) Substance abuse Social History Social History Household Members: None Housing: Homeless Smoking Status: Never smoker Second Hand Smoke Exposure: No Substance Use Type: Crack/Cocaine and Opiates Advance Directives: No Advance Directives Information Provided: No service: No Sexual orientation: Straight/Heterosexual Physical Exam Vital Signs: Vital Signs: Last Vital Signs Temp 97.8 F 12/12/20 00:45 Pulse 84 12/12/20 01:04 Resp 16 12/12/20 00:45 BP 122/82 12/12/20 01:04 Pulse Ox 95 12/12/20 00:45 Body Mass Index 30.8 Const: General: cooperative, healthy appearing, comfortable, no acute distress, well developed, alert, awake and Physically active Orientation/consciousness: patient oriented x3 HENMT: Head: Yes normal to inspection, Yes No palpable skull fracture present, Yes normocephalic and Yes atraumatic Eyes: General: appearance normal, both eyes and all related structures Neck: Neck: Yes normal visual inspection, Yes full ROM, Yes no lymphadenopathy, Yes no meningeal signs, Yes trachea midline, Yes supple and No tender Chest: Chest palpation & inspection: normal inspection of the chest and normal palpation of entire chest wall Resp: Effort & Inspection: normal respiratory effort and able to speak in complete sentences Auscultation: clear to auscultation bilaterally Cardio: Jugular venous distension: no JVD Heart sounds: S1 normal heart sound present and S2 normal heart sound present GI: Inspection: Yes normal to inspection, No abdominal wall ecchymosis, No Abdominal wall edema and No distended Palpation (GI): Soft to palpation, not firm, nontender, no guarding and not rigid : General: No CVA tenderness and Yes no CVA tenderness Back/Spine/Pelvis: Back: no CVA tenderness, No CVA tenderness and No back tenderness Skin: General skin exam: no rashes or lesions noted and elasticity normal Neuro: General: patient oriented x3, no meningeal signs and CN's II-XI intact bilaterally Cranial nerves: Yes CN's II-XII intact bilaterally Extrem: General: Yes normal to inspection and Yes full ROM Psych: Appearance: grossly normal, well kempt and not disheveled Course Course Course Narrative: Patient will have medical vision and then be seen by [facility]. Reevaluation(s) Reevaluation #1: Patient seen by [facility] consultant. She Recommends patient be eats bed search for tonight and if they can not find a bed and they will re-evaluate patient in the morning. Patient agreeable to plan MDM - Psych Lab Data Result diagrams: 12/11/20 19:49 12/11/20 19:49 Labs: Lab Results 12/11/20 12/11/20 12/11/20 Range/Units 19:20 19:49 19:49 WBC 8.9 (4.8-10.8) X10*3/uL RBC 4.44 L (4.60-5.80) X10*6/uL Hgb 14.0 (14.0-18.0) g/dl Hct 40.7 L (42-52) % MCV 91.7 (80-98) fL MCH 31.5 (27.0-33.0) pg MCHC 34.4 (31.0-36.0) g/dl RDW 12.7 (11.0-16.0) % Plt Count 245 D (160-400) X10*3/uL MPV 10.2 (9.4-12.4) fL Immature Gran % (Auto) 0.2 (0.0-0.4) % Neut % (Auto) 68.5 (45-73) % Lymph % (Auto) 21.8 (20-40) % [place] % (Auto) 6.9 (2-11) % Eos % (Auto) 2.0 (0-4) % Baso % (Auto) 0.6 (0-2) % Lymph # (Auto) 1.9 (1.2-4.9) X10*3/uL [place] # (Auto) 0.6 (0.1-1.2) X10*3/uL Eos # (Auto) 0.2 (0.0-0.4) X10*3/uL Baso # (Auto) 0.1 (0.0-0.2) X10*3/uL Abs Immat Gran (auto) 0.02 (0.00-0.03) X10*3/uL Absolute Neuts (auto) 6.1 (2.0-8.3) X10*3/uL Absolute Nucleated RBC 0.000 (0.0-0.012) X10*3/uL Nucleated RBC % (auto) 0.0 (0.0-0.2) /100WBC Sodium 138 (135-145) mmol/L Potassium 4.0 (3.3-5.1) mmol/L Chloride 101 (96-108) mmol/L Carbon Dioxide 27 (22-29) mmol/L Anion Gap 14 (12-20) BUN 11 (9-16) mg/dL Creatinine 0.77 (0.5-1.4) mg/dL Estim Creat Clear Calc 140.4 Estimated GFR > 60 Random Glucose 145 H D (60-115) mg/dL Calcium 8.6 (8.4-10.2) mg/dL Total Bilirubin 0.7 (0.0-1.0) mg/dL Direct Bilirubin 0.3 (0.0-0.5) mg/dL AST 156 H (5-37) U/L ALT 169 H (0-40) U/L Alkaline Phosphatase 72 (39-117) U/L Total Protein 6.8 (6.5-8.0) g/dL Albumin 4.0 (3.5-5.0) g/dL Urine Opiates Screen POSITIVE H (Not Detect) Ur Barbiturates Screen Not Detected (Not Detect) Ur Phencyclidine Scrn Not Detected (Not Detect) Ur Amphetamines Screen Not Detected (Not Detect) U Benzodiazepines Scrn Not Detected (Not Detect) Urine Cocaine Screen POSITIVE H (Not Detect) U Marijuana (THC) Screen Not Detected (Not Detect) Ethyl Alcohol mg/dL COVID-19 ([facility]) (Negative) COVID-19 Clin Com 12/11/20 12/12/20 Range/Units 19:49 00:36 WBC (4.8-10.8) X10*3/uL RBC (4.60-5.80) X10*6/uL Hgb (14.0-18.0) g/dl Hct (42-52) % MCV (80-98) fL MCH (27.0-33.0) pg MCHC (31.0-36.0) g/dl RDW (11.0-16.0) % Plt Count (160-400) X10*3/uL MPV (9.4-12.4) fL Immature Gran % (Auto) (0.0-0.4) % Neut % (Auto) (45-73) % Lymph % (Auto) (20-40) % [place] % (Auto) (2-11) % Eos % (Auto) (0-4) % Baso % (Auto) (0-2) % Lymph # (Auto) (1.2-4.9) X10*3/uL [place] # (Auto) (0.1-1.2) X10*3/uL Eos # (Auto) (0.0-0.4) X10*3/uL Baso # (Auto) (0.0-0.2) X10*3/uL Abs Immat Gran (auto) (0.00-0.03) X10*3/uL Absolute Neuts (auto) (2.0-8.3) X10*3/uL Absolute Nucleated RBC (0.0-0.012) X10*3/uL Nucleated RBC % (auto) (0.0-0.2) /100WBC Sodium (135-145) mmol/L Potassium (3.3-5.1) mmol/L Chloride (96-108) mmol/L Carbon Dioxide (22-29) mmol/L Anion Gap (12-20) BUN (9-16) mg/dL Creatinine (0.5-1.4) mg/dL Estim Creat Clear Calc Estimated GFR Random Glucose (60-115) mg/dL Calcium (8.4-10.2) mg/dL Total Bilirubin (0.0-1.0) mg/dL Direct Bilirubin (0.0-0.5) mg/dL AST (5-37) U/L ALT (0-40) U/L Alkaline Phosphatase (39-117) U/L Total Protein (6.5-8.0) g/dL Albumin (3.5-5.0) g/dL Urine Opiates Screen (Not Detect) Ur Barbiturates Screen (Not Detect) Ur Phencyclidine Scrn (Not Detect) Ur Amphetamines Screen (Not Detect) U Benzodiazepines Scrn (Not Detect) Urine Cocaine Screen (Not Detect) U Marijuana (THC) Screen (Not Detect) Ethyl Alcohol < 10 mg/dL COVID-19 ([facility]) Negative (Negative) COVID-19 Clin Com See Note Discharge Plan Discharge Clinical Impression: Depression Prescriptions: No Action gabapentin 600 mg tablet 600 mg PO TID RF: 0 buspirone 15 mg tablet 15 mg PO TID RF: 0 buprenorphine-naloxone [Suboxone] 8-2 mg film 2 film sublingual DAILY Qty: 14 RF: 0 risperidone 2 mg Tablet 2 mg PO BEDTIME Qty: 1 RF: 0 mirtazapine 15 mg Tablet 15 mg PO BEDTIME Qty: 1 RF: 0 risperidone 1 mg Tablet 1 mg PO DAILY Qty: 1 RF: 0 prazosin 2 mg capsule 1 cap PO BEDTIME RF: 0 venlafaxine 37.5 mg capsule,extended release 24hr 75 mg PO QAM RF: 0
[2020-12-12 00:45] VITALS: BP 122/82; PULSE 84; RESP 16; TEMP 36.6; O2SAT 95
[2020-12-12 01:04] VITALS: BP 122/82; PULSE 84
[2020-12-12] MEDS: Mirtazapine 15 MG TABLET PO ×2 (01:04→22:57)
[2020-12-12] MEDS: Prazosin HCL 1 MG CAPSULE 2 MG PO ×2 (01:04→22:57)
[2020-12-12] MEDS: risperiDONE 2 MG TABLET PO ×2 (01:04→22:57)
[2020-12-12] MEDS: busPIRone HCl 5 MG TABLET 15 MG PO ×4 (01:04→22:57)
--- NOTE | 2020-12-12 01:10 | PC.NURSE ---
Patient compliant with HS PO medication administered late due to increased cross over time, compliant with covid swab/result pending, VSS. patient denied distress, will continue to monitor.
[2020-12-12 01:14] LABS: COVID-19 Test Negative (Negative)
--- NOTE | 2020-12-12 07:16 | PC.NURSE ---
Report received from UZIEL Salas. Pt resting, resp unlabored.
[2020-12-12] MEDS: Buprenorphine/Naloxone 8/2 mg FILM 2 FILM SUBLINGUAL (10:01)
--- NOTE | 2020-12-12 10:03 | PC.NURSE ---
Dr Felton in to evaluate pt.
--- NOTE | 2020-12-12 10:10 | MHC.RECOVRN ---
T/w briefly met with pt to discuss substance use and Suboxone. Pt reports being current with Suboxone and won't go into withdrawal with am Suboxone dose. Pt more concerned with placement and level of care. Pt states this is psych stuff, not addict stuff. Pt continues to say I want to go back on my old meds. I'm not myself. I'm too tired. Pt aware of [facility] bed search and does not agree that is an appropriate level of care. T/w spoke with RN and Dr. Felton regarding pts concerns. Dr. Felton to meet with pt. CARE Team aware.
--- NOTE | 2020-12-12 10:15 | MHC.RECOVSUP ---
Recovery Support note: [facility] bedsearch exhausted. No available [facility] beds at this time. [facility] - Not accepting patient's [facility] - No availability until Tuesday [facility] - No beds [facility] - No beds [facility] - No beds
--- NOTE | 2020-12-12 10:25 | PC.NURSE ---
Dr Felton in to evaluate pt; inpatient status reconsidered w/ Dr. Felton and Sharon Michelle after speaking w/ pt. Care team contacted by Henrry Michelle
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
[2020-12-12] MEDS: Gabapentin 600 MG TABLET PO ×3 (10:43→22:57)
[2020-12-12] MEDS: risperiDONE 1 MG TABLET PO (10:44)
[2020-12-12] MEDS: Venlafaxine HCl ER 37.5 MG CAP.ER.24H 75 MG PO (10:44)
--- NOTE | 2020-12-12 11:55 | PC.NURSE ---
Pt OOB briefly, requested snack- no concerns reported, cooperative w/ care.
[2020-12-12 14:19] VITALS: BP 112/64; PULSE 62; RESP 20; TEMP 36.4; O2SAT 95
--- NOTE | 2020-12-12 16:26 | PC.NURSE ---
Pt resting, resp unlabored
--- NOTE | 2020-12-12 18:36 | PC.NURSE ---
Pt resting, resp unlabored, denies any concerns or questions at this time.
--- NOTE | 2020-12-12 19:33 | PC.NURSE ---
Report received. PT is sleeping in bed. Respirations even and unlabored. PT is inpatient bed search.
[2020-12-12 22:55] VITALS: BP 138/86; PULSE 66; RESP 18; TEMP 36.6; O2SAT 96
[2020-12-12 22:57] VITALS: BP 138/86; PULSE 68
--- NOTE | 2020-12-12 23:15 | MHC.CARE ---
CARE Team reviews psych consult, which recommends [facility], which is a change from original disposition for [facility]. Pt was initially accepted to [facility], however the bed fell through. CARE Team reaches out to [facility] to cancel prior auth, and CARE Team communicates that dispo was changed from [facility] to [facility]. CARE Team will call insurance tomorrow evening and conduct MSU. MSU is not conducted on this shift, as dispo was changed today by psychiatry, along w/ CARE Team involvement.
--- NOTE | 2020-12-13 07:13 | PC.NURSE ---
Report received. PT currently resting, calm and cooperative, denies complaints. PT is inpatient bedsearch.
[2020-12-13 09:05] VITALS: BP 111/56; PULSE 72; RESP 16; TEMP 36.9; O2SAT 97
[2020-12-13] MEDS: busPIRone HCl 5 MG TABLET 15 MG PO ×3 (09:34→21:34)
[2020-12-13] MEDS: Gabapentin 600 MG TABLET PO ×3 (09:34→21:34)
[2020-12-13] MEDS: Buprenorphine/Naloxone 8/2 mg FILM 2 FILM SUBLINGUAL (09:34)
[2020-12-13] MEDS: risperiDONE 1 MG TABLET PO (09:34)
[2020-12-13] MEDS: Venlafaxine HCl ER 37.5 MG CAP.ER.24H 75 MG PO (09:34)
[2020-12-13 17:04] VITALS: BP 129/84; PULSE 69; RESP 16; TEMP 36.8; O2SAT 97
--- NOTE | 2020-12-13 19:34 | MHC.CARE ---
Bedsearch and MSU completed by CARE team. See MSU document for details.
--- NOTE | 2020-12-13 19:35 | PC.NURSE ---
Report received. PT is sleeping in bed. Respirations even and unlabored. PT is inpatient bed search.
[2020-12-13 21:32] VITALS: BP 115/82; PULSE 66
[2020-12-13] MEDS: Prazosin HCL 1 MG CAPSULE 2 MG PO (21:32)
[2020-12-13] MEDS: Mirtazapine 15 MG TABLET PO (21:33)
[2020-12-13] MEDS: risperiDONE 2 MG TABLET PO (21:33)
--- NOTE | 2020-12-14 | ECG_ITS ---
Test Reason : MEDCLEARANCE Blood Pressure : / mmHG Vent. Rate : 061 BPM Atrial Rate : 061 BPM P-R Int : 164 ms QRS Dur : 084 ms QT Int : 412 ms P-R-T Axes : 033 -02 021 degrees QTc Int : 414 ms Normal sinus rhythm Normal ECG When compared with ECG of 30-OCT-2020 21:15, No significant change was found Referred By: Yanci Aburto Electronically Signed By:Anthony Dowd
[2020-12-14 01:44] VITALS: BP 125/78; PULSE 64; RESP 17; TEMP 36.3; O2SAT 96
--- NOTE | 2020-12-14 07:04 | PC.NURSE ---
Report received. PT currently eating breakfast, calm and cooperative, denies complaints. PT is inpatient bedsearch.
[2020-12-14] MEDS: Venlafaxine HCl ER 37.5 MG CAP.ER.24H 75 MG PO (09:24)
[2020-12-14] MEDS: Gabapentin 600 MG TABLET PO ×3 (09:25→20:22)
[2020-12-14] MEDS: busPIRone HCl 5 MG TABLET 15 MG PO ×3 (09:25→20:22)
[2020-12-14] MEDS: Buprenorphine/Naloxone 8/2 mg FILM 2 FILM SUBLINGUAL (09:25)
[2020-12-14] MEDS: risperiDONE 1 MG TABLET PO (09:25)
[2020-12-14 09:51] VITALS: BP 128/86; PULSE 71; RESP 18; TEMP 36.6; O2SAT 97
--- NOTE | 2020-12-14 13:11 | PC.NURSE ---
Pt asleep at current, no signs of distress, RR even and unlabored.
--- NOTE | 2020-12-14 15:28 | PC.NURSE ---
Nurse to nurse completed with Roxi from [facility], ekg to be completed.
--- NOTE | 2020-12-14 16:07 | PC.NURSE ---
Pt resting in bed, no complaints at this time, calm and cooperative. Awaiting transfer to
[2020-12-14 16:11] VITALS: BP 114/74; PULSE 69; RESP 18; TEMP 36.3; O2SAT 98
--- NOTE | 2020-12-14 18:50 | PC.ADMIT ---
Pt is a 44 year old male who came into [facility] due to increased depression and vague SI. Pt reported that he wanted to hang myself but my uncle was there and he called in for me...my parents and family don't trust me because of last attempts so I really have no where to go. He reports that he has auditory hallucinations, however states they are not command but they have been in the past telling me to hurt myself. He is looking to change medications because I feel that they are not working right now. Tox screen positive for cocaine and opiates. The cocaine was just a two day thing. Reports having body aches and sweats. Currently, experiencing pain in his lower back from reported herniated disks that he has had for 20 years. As well as, pain in his hands (joint pain) rating both a 7/10. Self medicating due to voices and took the cocaine to stay awake. CV signed. Placed on 15 minute checks. Admitting SHORT PIECE HANDLER placed orders and they were obtained. Previous IPLOC at [facility] was in October 2020.
[2020-12-14 20:22] VITALS: BP 122/74; PULSE 67
[2020-12-14] MEDS: Prazosin HCL 1 MG CAPSULE 2 MG PO (20:22)
[2020-12-14] MEDS: Mirtazapine 15 MG TABLET PO (20:22)
[2020-12-14] MEDS: risperiDONE 2 MG TABLET PO (20:22)
[2020-12-14 20:25] VITALS: BP 122/67; PULSE 67; TEMP 37
[2020-12-15 06:00] VITALS: BP 115/72; PULSE 61; RESP 16; TEMP 36.6; O2SAT 97
[2020-12-15 08:25] LABS: Cholesterol 165 mg/dL; HDL Cholesterol 41 mg/dL; LDL Cholesterol Calculated 98 mg/dl; Triglycerides 132 mg/dL
[2020-12-15] MEDS: busPIRone HCl 5 MG TABLET 15 MG PO ×3 (08:44→20:18)
[2020-12-15] MEDS: risperiDONE 1 MG TABLET PO (08:44)
[2020-12-15] MEDS: Gabapentin 600 MG TABLET PO ×3 (08:44→20:18)
[2020-12-15] MEDS: Venlafaxine HCl ER 37.5 MG CAP.ER.24H 75 MG PO (08:44)
[2020-12-15] MEDS: Buprenorphine/Naloxone 8/2 mg FILM 2 FILM SUBLINGUAL (08:45)
[2020-12-15 08:46] LABS: Free T4 (Free Thyroxine) 0.93 ng/dL (0.71-1.85); Thyroid Stimulating Hormone 1.18 uIU/mL (0.32-4.0)
[2020-12-15 08:58] LABS: Folate 16.1 ng/mL (> or = 4.0); Vitamin B12 604 pg/mL (200-900)
[2020-12-15 09:09] LABS: Estimated Average Glucose 94 mg/dL; Hemoglobin A1c % 4.9 %
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
[2020-12-15 17:50] VITALS: BP 120/65; PULSE 63
[2020-12-15] MEDS: chlorproMAZINE HCl 25 MG TABLET PO (20:18)
[2020-12-15 20:19] VITALS: BP 120/67; PULSE 68
[2020-12-15] MEDS: Prazosin HCL 1 MG CAPSULE 2 MG PO (20:19)
[2020-12-15] MEDS: risperiDONE 2 MG TABLET PO (20:19)
[2020-12-15] MEDS: Mirtazapine 15 MG TABLET PO (20:19)
[2020-12-16 06:00] VITALS: BP 125/62; PULSE 63; TEMP 35.5
[2020-12-16] MEDS: chlorproMAZINE HCl 25 MG TABLET PO ×3 (08:36→20:49)
[2020-12-16] MEDS: Venlafaxine HCl ER 37.5 MG CAP.ER.24H 75 MG PO (08:36)
[2020-12-16] MEDS: risperiDONE 1 MG TABLET PO (08:36)
[2020-12-16] MEDS: Buprenorphine/Naloxone 8/2 mg FILM 2 FILM SUBLINGUAL (08:36)
[2020-12-16] MEDS: Sertraline HCL 50 MG TABLET PO (08:36)
[2020-12-16] MEDS: busPIRone HCl 5 MG TABLET 15 MG PO ×3 (08:36→20:49)
[2020-12-16] MEDS: Gabapentin 600 MG TABLET PO ×3 (08:36→20:50)
[2020-12-16 08:51] LABS: HBS Num1 2.02 mIU/mL (0-7.99); HBc Num1 0.07 S/CO (0.00-0.79); Hepatitis B Core Antibody Nonreactive (Nonreactive); ~Hepatitis B Surface Antibody NONREACTIVE (Nonreactive); ~Hepatitis C Antibody Reactive (Nonreactive)
[2020-12-16 10:01] LABS: HBsAGNum1 0.21 S/CO (0.00-0.99); Hepatitis B Surface Antigen Negative (Negative)
[2020-12-16 12:03] VITALS: PULSE 65
--- NOTE | 2020-12-16 12:22 | P.PNPSI_ITS ---
Subjective Subjective Date of Service: 12/16/20 Reason For Visit: Opiate/cocaine use disorder Recurrent major depres Interim History: The patient reported poor sleep. He denied abuse recently of alcohol so CIWA was discontinued. He has several psychosocial stressors such as homelessness, court problems with shoplifiting charges and drug abuse in the past. Medication Compliance: Yes Side effects from medications: No Review of Systems Review of Systems Yes all other systems are reviewed and are negative Mental Status Exam Mental Status Exam Patient Appearance: Well Grooomed Patient Orientation: Person, Place, Time and Situation Level of Consciousness: Awake and Appropriate Patient Behavior: Appropriate Mood Description: Calm Affect Description: Calm Patient Cognition Impaired: No Ability to Follow Directions: Good Speech Pattern: Clear Memory Description: Intact Hallucinations: None Delusions: Not Present Thought Process: Goal Oriented Thought Content: positive for Intact Judgement: Fair Diagnostics Vital Signs (24Hr): Vital Signs - 24 hr 12/15/20 17:50 12/15/20 20:19 12/16/20 06:00 Temperature 95.9 F L Pulse Rate 63 68 63 Blood Pressure 120/65 120/67 125/62 Body Mass Index 30.8 Labs Results: 12/11/20 19:49 12/11/20 19:49 Labs: Laboratory Results - last 48 hr 12/15/20 12/15/20 12/15/20 07:52 07:52 07:52 Estimat Average Glucose 94 Hemoglobin A1c % 4.9 Magnesium 2.0 Triglycerides 132 Cholesterol 165 LDL Cholesterol, Calc 98 HDL Cholesterol 41 Vitamin B12 604 Folate 16.1 TSH 1.18 Free T4 0.93 Hep Bs Antigen Hep Bs Antibody Hep B Core Total Ab Hepatitis C Ab (EIA) 12/16/20 07:48 Estimat Average Glucose Hemoglobin A1c % Magnesium Triglycerides Cholesterol LDL Cholesterol, Calc HDL Cholesterol Vitamin B12 Folate TSH Free T4 Hep Bs Antigen Negative Hep Bs Antibody NONREACTIVE Hep B Core Total Ab Nonreactive Hepatitis C Ab (EIA) Reactive H Medications Medications Current Medications Generic Name Dose Route Start Last Admin Trade Name Freq PRN Reason Stop Dose Admin Al Hydroxide/Mg Hydroxide 30 ml 12/14/20 16:54 Magnesium Hydrox/Alum Hydrox 30 Ml Oral.Susp PO Q6H PRN Heartburn/Nausea Buprenorphine/Naloxone 2 film 12/12/20 09:00 12/16/20 08:36 Buprenorphine/Naloxone 8/2 Mg Film SUBLINGUAL 2 film DAILY MICHAEL Administration Buspirone HCl 15 mg 12/12/20 00:45 12/16/20 08:36 Buspirone Hcl 5 Mg Tablet PO 15 mg TID MICHAEL Administration Chlorpromazine HCl 25 mg 12/15/20 21:00 12/16/20 08:36 Chlorpromazine Hcl 25 Mg Tablet PO 25 mg TID MICHAEL Administration Gabapentin 600 mg 12/12/20 09:00 12/16/20 08:36 Gabapentin 600 Mg Tablet PO 600 mg TID MICHAEL Administration Hydroxyzine HCl 25 mg 12/14/20 16:54 Hydroxyzine Hcl 25 Mg Tablet PO BEDTIME PRN Anxiety Lorazepam 2 mg 12/12/20 08:53 Lorazepam 0.5 Mg Tablet PO Q6H PRN Anxiety Magnesium Hydroxide 30 ml 12/14/20 16:54 Milk Of Magnesia 30 Ml Oral.Susp PO DAILY PRN Constipation Mirtazapine 15 mg 12/12/20 00:45 12/15/20 20:19 Mirtazapine 15 Mg Tablet PO 15 mg BEDTIME MICHAEL Administration Multivitamins 1 tab 12/16/20 09:00 12/16/20 08:36 B-Complex With Vitamin C Tablet PO 1 tab DAILY MICHAEL Administration Multivitamins/Minerals 1 tab 12/16/20 09:00 12/16/20 08:36 Multivitamin With Minerals Tablet PO 1 tab DAILY MICHAEL Administration Prazosin HCl 2 mg 12/12/20 00:45 12/15/20 20:19 Prazosin Hcl 1 Mg Capsule PO 2 mg BEDTIME MICHAEL Administration Protocol Risperidone 1 mg 12/12/20 09:00 12/16/20 08:36 Risperidone 1 Mg Tablet PO 1 mg DAILY MICHAEL Administration Risperidone 2 mg 12/12/20 00:45 12/15/20 20:19 Risperidone 2 Mg Tablet PO 2 mg BEDTIME MICHAEL Administration Sertraline HCl 50 mg 12/16/20 09:00 12/16/20 08:36 Sertraline Hcl 50 Mg Tablet PO 50 mg DAILY MICHAEL Administration Trazodone HCl 50 mg 12/14/20 16:54 Trazodone Hcl 50 Mg Tablet PO BEDTIME PRN Insomnia Venlafaxine HCl 75 mg 12/12/20 09:00 12/16/20 08:36 Venlafaxine Hcl Er 37.5 Mg Cap.Er.24h PO 75 mg DAILY MICHAEL Administration Allergies Allergies Allergy/AdvReac Type Severity Reaction Status Date / Time acetaminophen [From TYLENOL] Allergy Mild STOMACH Verified 11/04/20 11:18 UPSET amoxicillin [AMOXICILLIN] Allergy Unknown SWELLING Verified 11/04/20 11:18 clavulanic acid Allergy Unknown Swelling Verified 11/04/20 11:18 [From AUGMENTIN] Assessment & Plan Assessment & Plan (1) Severe recurrent major depressive disorder with psychosis: Status: Acute Code(s): F33.3 - Major depressive disorder, recurrent, severe with psychotic symptoms Assessment and Plan: Pt has stopped psychotropics and substituted substances for meds with sx exacerb ation. Discussed re-starting Sertraline/Thorazine as these have been the most helpful. Continue Sertraline 50 mg daily. Continue Venlafaxine currently. Will taper Thorazine 25 mg tid Continue Risperdal at this time. Testing for Hepatits as pt is concerned. (2) Cocaine abuse: Status: Acute Code(s): F14.10 - Cocaine abuse, uncomplicated Assessment and Plan: Last use 12/10/20. Denies withdrawal sx. (3) Opiate dependence, continuous: Status: Acute Code(s): F11.20 - Opioid dependence, uncomplicated Assessment and Plan: Last use 12/10/20. Denies withdrawal sx. (4) Alcohol use disorder, severe, dependence: Status: Acute Code(s): F10.20 - Alcohol dependence, uncomplicated Assessment and Plan: Last use 12/10/20. Some tremor and diaphoresis are intermittent, Pt does not believe he is still in withdrawal. Greater than 50% of the session was spent on counseling and/or coordination of care Reason for contiued inpatient stay Substantial Risk for: harm to self and rapid decompensation
[2020-12-16 16:52] VITALS: BP 115/64; PULSE 75; RESP 18; TEMP 36.7; O2SAT 97
[2020-12-16] MEDS: Mirtazapine 15 MG TABLET PO (20:49)
[2020-12-16] MEDS: risperiDONE 2 MG TABLET PO (20:49)
[2020-12-16 21:03] VITALS: BP 101/55; PULSE 96
[2020-12-17 06:00] VITALS: BP 106/62; PULSE 56; RESP 16; TEMP 36.3; O2SAT 95
[2020-12-17] MEDS: Venlafaxine HCl ER 37.5 MG CAP.ER.24H 75 MG PO (08:03)
[2020-12-17] MEDS: Buprenorphine/Naloxone 8/2 mg FILM 2 FILM SUBLINGUAL (08:03)
[2020-12-17] MEDS: chlorproMAZINE HCl 25 MG TABLET PO ×2 (08:03→14:39)
[2020-12-17] MEDS: Sertraline HCL 50 MG TABLET PO (08:03)
[2020-12-17] MEDS: Gabapentin 600 MG TABLET PO ×3 (08:04→21:20)
[2020-12-17] MEDS: busPIRone HCl 5 MG TABLET 15 MG PO ×3 (08:04→21:19)
[2020-12-17] MEDS: risperiDONE 1 MG TABLET PO (08:04)
[2020-12-17 08:16] LABS: Hepatitis A Antibody IgM 0.14 Index (0-0.79); ~Hepatitis A Antibody IgM Nonreactive (Nonreactive)
--- NOTE | 2020-12-17 09:30 | MHC.RECOVRN ---
T/w briefly met with pt to check in. Pt states They are changing my meds back. I feel wicked groggy but I will give it a few days. Pt reports Suboxone is going well, sees Dr. Felipe at [facility] and will continue there after d/c. Pt given t/w card if questions or concerns arise. Will continue to follow.
--- NOTE | 2020-12-17 14:42 | P.PNPSI_ITS ---
Subjective Subjective Date of Service: 12/17/20 Reason For Visit: Opiate/cocaine use disorder Recurrent major depres Subjective Notes: Conditional Voluntary Interim History: Reports an increase in cravings, irritable, feeling tired. SI persists. Wanting dual diagnosis program which is not available for pt currently. Discussed CPZ titration which by history has been helpful. Reports ongoing depressive sx, lability of mood, +SI, cravings and hopelessness. Medication Compliance: Yes Side effects from medications: No Attending Groups: No Review of Systems Review of Systems Yes all other systems are reviewed and are negative Reports behavioral changes Psychiatric: Reports abnormal sleep pattern, Reports anxiety, Reports behavioral changes, Reports depression, Reports difficulty concentrating, Reports hopeless ness, Reports irritability, Reports anhedonia, Reports mood swings and Reports suicidal ideation Mental Status Exam Mental Status Exam Patient Appearance: Appropriate Patient Orientation: Person, Place, Time and Situation Level of Consciousness: Alert Patient Behavior: Guarded and Talkative Mood Description: Depressed and Angry Affect Description: Constricted Patient Cognition Impaired: No Ability to Follow Directions: Good Speech Pattern: Spontaneous Speech Memory Description: Episodic Impaired Hallucinations: None Delusions: Present (thinking unclear-CPZ helps him to be clear he reports) Thought Process: Distracted Thought Content: positive for [place] and positive for Circumstantial Depressive Symptoms: Increased Anxiety, Insomnia, Diff. Making Decisions, Increased Irritability, Difficulty Sleeping, Loss of Int. in Activity, Feelings of Worthlessness, Hopelessness, Isolating-Friends/Family, Feelings of Guilt, Unhappiness, Increased Fatigue, Thoughts of /Suicide, Low Self Esteem, Loss of Energy and Difficulty Concentrating Judgement: Fair Diagnostics Vital Signs (24Hr): Vital Signs - 24 hr 12/16/20 16:52 12/16/20 21:03 12/17/20 06:00 Temperature 98.1 F 97.4 F Pulse Rate 75 96 56 Respiratory Rate 18 16 Blood Pressure 115/64 101/55 L 106/62 Pulse Oximetry 97 95 Body Mass Index 30.8 Labs Results: 12/11/20 19:49 12/11/20 19:49 Labs: Laboratory Results - last 48 hr 12/16/20 07:48 Hepatitis A IgM Ab Nonreactive Hep Bs Antigen Negative Hep Bs Antibody NONREACTIVE Hep B Core Total Ab Nonreactive Hepatitis C Ab (EIA) Reactive H Medications Medications Current Medications Generic Name Dose Route Start Last Admin Trade Name Freq PRN Reason Stop Dose Admin Al Hydroxide/Mg Hydroxide 30 ml 12/14/20 16:54 Magnesium Hydrox/Alum Hydrox 30 Ml Oral.Susp PO Q6H PRN Heartburn/Nausea Buprenorphine/Naloxone 2 film 12/12/20 09:00 12/17/20 08:03 Buprenorphine/Naloxone 8/2 Mg Film SUBLINGUAL 2 film DAILY MICHAEL Administration Buspirone HCl 15 mg 12/12/20 00:45 12/17/20 14:39 Buspirone Hcl 5 Mg Tablet PO 15 mg TID MICHAEL Administration Chlorpromazine HCl 25 mg 12/15/20 21:00 12/17/20 14:39 Chlorpromazine Hcl 25 Mg Tablet PO 25 mg TID MICHAEL Administration Gabapentin 600 mg 12/12/20 09:00 12/17/20 14:39 Gabapentin 600 Mg Tablet PO 600 mg TID MICHAEL Administration Hydroxyzine HCl 25 mg 12/14/20 16:54 Hydroxyzine Hcl 25 Mg Tablet PO BEDTIME PRN Anxiety Magnesium Hydroxide 30 ml 12/14/20 16:54 Milk Of Magnesia 30 Ml Oral.Susp PO DAILY PRN Constipation Mirtazapine 15 mg 12/12/20 00:45 12/16/20 20:49 Mirtazapine 15 Mg Tablet PO 15 mg BEDTIME MICHAEL Administration Multivitamins 1 tab 12/16/20 09:00 12/17/20 08:04 B-Complex With Vitamin C Tablet PO 1 tab DAILY MICHAEL Administration Multivitamins/Minerals 1 tab 12/16/20 09:00 12/17/20 08:04 Multivitamin With Minerals Tablet PO 1 tab DAILY MICHAEL Administration Prazosin HCl 2 mg 12/12/20 00:45 12/16/20 21:03 Prazosin Hcl 1 Mg Capsule PO Not Given BEDTIME [facility] Protocol Risperidone 1 mg 12/12/20 09:00 12/17/20 08:04 Risperidone 1 Mg Tablet PO 1 mg DAILY MICHAEL Administration Risperidone 2 mg 12/12/20 00:45 12/16/20 20:49 Risperidone 2 Mg Tablet PO 2 mg BEDTIME MICHAEL Administration Sertraline HCl 50 mg 12/16/20 09:00 12/17/20 08:03 Sertraline Hcl 50 Mg Tablet PO 50 mg DAILY MICHAEL Administration Trazodone HCl 100 mg 12/16/20 12:22 Trazodone Hcl 50 Mg Tablet PO BEDTIME PRN Insomnia Venlafaxine HCl 75 mg 12/12/20 09:00 12/17/20 08:03 Venlafaxine Hcl Er 37.5 Mg Cap.Er.24h PO 75 mg DAILY MICHAEL Administration Allergies Allergies Allergy/AdvReac Type Severity Reaction Status Date / Time acetaminophen [From TYLENOL] Allergy Mild STOMACH Verified 11/04/20 11:18 UPSET amoxicillin [AMOXICILLIN] Allergy Unknown SWELLING Verified 11/04/20 11:18 clavulanic acid Allergy Unknown Swelling Verified 11/04/20 11:18 [From AUGMENTIN] Assessment & Plan Assessment & Plan (1) Severe recurrent major depressive disorder with psychosis: Status: Acute Code(s): F33.3 - Major depressive disorder, recurrent, severe with psychotic symptoms Assessment and Plan: Pt has stopped psychotropics and substituted substances for meds with sx exacerbation. Discussed re-starting Sertraline/Thorazine as these have been the most helpful. Continue Sertraline 50 mg daily. Continue Venlafaxine currently. Will taper Thorazine titration Continue Risperdal at this time. Testing for Hepatits as pt is concerned. (2) Cocaine abuse: Status: Acute Code(s): F14.10 - Cocaine abuse, uncomplicated Assessment and Plan: Last use 12/10/20. Denies withdrawal sx. (3) Opiate dependence, continuous: Status: Acute Code(s): F11.20 - Opioid dependence, uncomplicated Assessment and Plan: Last use 12/10/20. Denies withdrawal sx. (4) Alcohol use disorder, severe, dependence: Status: Acute Code(s): F10.20 - Alcohol dependence, uncomplicated Assessment and Plan: Last use 12/10/20. Some tremor and diaphoresis are intermittent, Pt does not believe he is still in withdrawal. Greater than 50% of the session was spent on counseling and/or coordination of care Reason for contiued inpatient stay Substantial Risk for: harm to self, harm to others, inability to function, rapid decompensation and med/psych decompensation
[2020-12-17 21:00] VITALS: BP 121/61; PULSE 60; TEMP 36
[2020-12-17] MEDS: chlorproMAZINE HCl 25 MG TABLET 50 MG PO (21:19)
[2020-12-17] MEDS: Mirtazapine 15 MG TABLET PO (21:19)
[2020-12-17 21:20] VITALS: BP 121/61; PULSE 60
[2020-12-17] MEDS: Prazosin HCL 1 MG CAPSULE 2 MG PO (21:20)
[2020-12-17] MEDS: risperiDONE 2 MG TABLET PO (21:20)
[2020-12-18 06:10] VITALS: BP 117/67; PULSE 54; RESP 16; TEMP 36.4; O2SAT 97
[2020-12-18 07:00] VITALS: BMI 30.3
[2020-12-18] MEDS: Buprenorphine/Naloxone 8/2 mg FILM 2 FILM SUBLINGUAL (08:42)
[2020-12-18] MEDS: busPIRone HCl 5 MG TABLET 15 MG PO ×3 (08:43→21:15)
[2020-12-18] MEDS: risperiDONE 1 MG TABLET PO (08:43)
[2020-12-18] MEDS: Sertraline HCL 50 MG TABLET PO (08:43)
[2020-12-18] MEDS: Venlafaxine HCl ER 37.5 MG CAP.ER.24H 75 MG PO (08:43)
[2020-12-18] MEDS: Gabapentin 600 MG TABLET PO ×3 (08:43→21:15)
[2020-12-18] MEDS: chlorproMAZINE HCl 25 MG TABLET PO (08:43)
--- NOTE | 2020-12-18 16:22 | HO.PSYCHPN ---
Subjective Subjective Date of Service: 12/18/20 Reason For Visit: Opiate/cocaine use disorder Recurrent major depres Subjective Notes: Conditional Voluntary Interim History: Pt resting in his room. Denies feeling over-medicated. Reports Sertraline just beginning to take effect. Housing and aftercare planning remain issues. Pt declines to attend [facility] as it has not been a helpful modality in the past. anergic, anhedonic, apathy, depressed mood. Medication Compliance: Yes Side effects from medications: No Attending Groups: No Review of Systems Review of Systems Yes all other systems are reviewed and are negative (denies) Reports behavioral changes Psychiatric: Reports abnormal sleep pattern, Reports behavioral changes, Reports depression, Reports hopelessness, Reports irritability, Reports anhedonia and Reports mood swings Mental Status Exam Mental Status Exam Patient Appearance: Appropriate Patient Orientation: Person, Place, Time and Situation Level of Consciousness: Alert Patient Behavior: Fatigued Mood Description: Withdrawn and Depressed Affect Description: Withdrawn and Flat Patient Cognition Impaired: No Ability to Follow Directions: Good Speech Pattern: Spontaneous Speech Memory Description: Intact Hallucinations: None Delusions: Not Present Thought Process: Intact Thought Content: positive for [place] and positive for Circumstantial Depressive Symptoms: Increased Irritability, Sleeping More Than Usual, Loss of Int. in Activity, Hopelessness, Unhappiness, Increased Fatigue, Low Self Esteem, Loss of Energy and Difficulty Concentrating Judgement: Fair Diagnostics Vital Signs (24Hr): Vital Signs - 24 hr 12/17/20 21:00 12/17/20 21:20 12/18/20 06:10 Temperature 96.8 F 97.6 F Pulse Rate 60 60 54 Respiratory Rate 16 Blood Pressure 121/61 121/61 117/67 Pulse Oximetry 97 Body Mass Index 30.3 Labs Results: 12/11/20 19:49 12/19/20 08:01 Labs: Laboratory Results - last 48 hr 12/16/20 07:48 Hepatitis A IgM Ab Nonreactive Medications Medications Current Medications Generic Name Dose Route Start Last Admin Trade Name Freq PRN Reason Stop Dose Admin Al Hydroxide/Mg Hydroxide 30 ml 12/14/20 16:54 Magnesium Hydrox/Alum Hydrox 30 Ml Oral.Susp PO Q6H PRN Heartburn/Nausea Buprenorphine/Naloxone 2 film 12/12/20 09:00 12/18/20 08:42 Buprenorphine/Naloxone 8/2 Mg Film SUBLINGUAL 2 film DAILY MICHAEL Administration Buspirone HCl 15 mg 12/12/20 00:45 12/18/20 14:32 Buspirone Hcl 5 Mg Tablet PO 15 mg TID MICHAEL Administration Chlorpromazine HCl 25 mg 12/18/20 09:00 12/18/20 08:43 Chlorpromazine Hcl 25 Mg Tablet PO 25 mg DAILY MICHAEL Administration Chlorpromazine HCl 50 mg 12/17/20 21:00 12/17/20 21:19 Chlorpromazine Hcl 25 Mg Tablet PO 50 mg BEDTIME MICHAEL Administration Chlorpromazine HCl 75 mg 12/17/20 16:00 Chlorpromazine Hcl 25 Mg Tablet PO DAILY PRN agitation Gabapentin 600 mg 12/12/20 09:00 12/18/20 14:32 Gabapentin 600 Mg Tablet PO 600 mg TID MICHAEL Administration Hydroxyzine HCl 25 mg 12/14/20 16:54 Hydroxyzine Hcl 25 Mg Tablet PO BEDTIME PRN Anxiety Lorazepam 1 mg 12/17/20 18:58 Lorazepam 1 Mg Tablet PO Q6H PRN Anxiety Magnesium Hydroxide 30 ml 12/14/20 16:54 Milk Of Magnesia 30 Ml Oral.Susp PO DAILY PRN Constipation Mirtazapine 15 mg 12/12/20 00:45 12/17/20 21:19 Mirtazapine 15 Mg Tablet PO 15 mg BEDTIME MICHAEL Administration Multivitamins 1 tab 12/16/20 09:00 12/18/20 08:43 B-Complex With Vitamin C Tablet PO 1 tab DAILY MICHAEL Administration Multivitamins/Minerals 1 tab 12/16/20 09:00 12/18/20 08:43 Multivitamin With Minerals Tablet PO 1 tab DAILY MICHAEL Administration Prazosin HCl 2 mg 12/12/20 00:45 12/17/20 21:20 Prazosin Hcl 1 Mg Capsule PO 2 mg BEDTIME MICHAEL Administration Protocol Risperidone 1 mg 12/12/20 09:00 12/18/20 08:43 Risperidone 1 Mg Tablet PO 1 mg DAILY MICHAEL Administration Risperidone 2 mg 12/12/20 00:45 12/17/20 21:20 Risperidone 2 Mg Tablet PO 2 mg BEDTIME MICHAEL Administration Sertraline HCl 50 mg 12/16/20 09:00 12/18/20 08:43 Sertraline Hcl 50 Mg Tablet PO 50 mg DAILY MICHAEL Administration Trazodone HCl 100 mg 12/16/20 12:22 Trazodone Hcl 50 Mg Tablet PO BEDTIME PRN Insomnia Venlafaxine HCl 75 mg 12/12/20 09:00 12/18/20 08:43 Venlafaxine Hcl Er 37.5 Mg Cap.Er.24h PO 75 mg DAILY MICHAEL Administration Allergies Allergies Allergy/AdvReac Type Severity Reaction Status Date / Time acetaminophen [From TYLENOL] Allergy Mild STOMACH Verified 11/04/20 11:18 UPSET amoxicillin [AMOXICILLIN] Allergy Unknown SWELLING Verified 11/04/20 11:18 clavulanic acid Allergy Unknown Swelling Verified 11/04/20 11:18 [From AUGMENTIN] Assessment & Plan Assessment & Plan (1) Severe recurrent major depressive disorder with psychosis: Status: Acute Code(s): F33.3 - Major depressive disorder, recurrent, severe with psychotic symptoms Assessment and Plan: Pt has stopped psychotropics and substituted substances for meds with sx exacerbation. Discussed re-starting Sertraline/Thorazine as these have been the most helpful. Continue Sertraline 50 mg daily. Continue Venlafaxine currently. Will taper Thorazine titration Continue Risperdal at this time. Testing for Hepatits as pt is concerned. (2) Cocaine abuse: Status: Acute Code(s): F14.10 - Cocaine abuse, uncomplicated Assessment and Plan: Last use 12/10/20. Denies withdrawal sx. (3) Opiate dependence, continuous: Status: Acute Code(s): F11.20 - Opioid dependence, uncomplicated Assessment and Plan: Last use 12/10/20. Denies withdrawal sx. (4) Alcohol use disorder, severe, dependence: Status: Acute Code(s): F10.20 - Alcohol dependence, uncomplicated Assessment and Plan: Last use 12/10/20. Pt does not believe he is still in withdrawal. Greater than 50% of the session was spent on counseling and/or coordination of care Reason for contiued inpatient stay Substantial Risk for: harm to self, inability to function and rapid decompensation
[2020-12-18] MEDS: risperiDONE 2 MG TABLET PO (21:15)
[2020-12-18 21:16] VITALS: BP 105/75; PULSE 75
[2020-12-18] MEDS: chlorproMAZINE HCl 25 MG TABLET 50 MG PO (21:16)
[2020-12-18] MEDS: Mirtazapine 15 MG TABLET PO (21:16)
[2020-12-18] MEDS: Prazosin HCL 1 MG CAPSULE 2 MG PO (21:16)
[2020-12-18 21:30] VITALS: TEMP 36.8
[2020-12-19 06:55] VITALS: BP 92/62; PULSE 69; RESP 18; TEMP 36.7; O2SAT 95
[2020-12-19] MEDS: Gabapentin 600 MG TABLET PO ×3 (08:04→20:48)
[2020-12-19] MEDS: Sertraline HCL 50 MG TABLET PO (08:04)
[2020-12-19] MEDS: chlorproMAZINE HCl 25 MG TABLET PO (08:04)
[2020-12-19] MEDS: Venlafaxine HCl ER 37.5 MG CAP.ER.24H 75 MG PO (08:04)
[2020-12-19] MEDS: risperiDONE 1 MG TABLET PO (08:04)
[2020-12-19] MEDS: Buprenorphine/Naloxone 8/2 mg FILM 2 FILM SUBLINGUAL (08:04)
[2020-12-19] MEDS: busPIRone HCl 5 MG TABLET 15 MG PO ×3 (08:04→20:48)
[2020-12-19 09:10] LABS: Anion Gap 14 (12-20); Blood Urea Nitrogen 12 mg/dL (9-16); Calcium 9.5 mg/dL (8.4-10.2); Carbon Dioxide 26 mmol/L (22-29); Chloride 106 mmol/L (96-108); Cholesterol 154 mg/dL; Creatinine Clr Calc Pharmacy 157.7; Estimated Glomerular Filt Rate > 60; Glucose Random 87 mg/dL (60-115); HDL Cholesterol 37 mg/dL; LDL Cholesterol Calculated 78 mg/dl; Potassium 4.5 mmol/L (3.3-5.1); Sodium 141 mmol/L (135-145); Triglycerides 198 mg/dL
[2020-12-19 09:11] LABS: Lithium < 0.10 mmol/L (0.60-1.20)
[2020-12-19 09:27] LABS: Thyroid Stimulating Hormone 2.18 uIU/mL (0.32-4.0)
--- NOTE | 2020-12-19 13:39 | P.PNPSI_ITS ---
Subjective Subjective Date of Service: 12/19/20 Reason For Visit: Opiate/cocaine use disorder Recurrent major depres Subjective Notes: Conditional Voluntary Interim History: Team reports pt to be overmedicated, spending too much time in bed. Pt reports feeling improved. Discussed making all CPZ prn as we may be giving him too much-he agrees. Placement after discharge continues to be the major stress for pt. Medication Compliance: Yes Side effects from medications: Yes (anergy, sedation.) Attending Groups: No Review of Systems Review of Systems Yes all other systems are reviewed and are negative (denies) Reports behavioral changes Psychiatric: Reports abnormal sleep pattern, Reports behavioral changes, Reports depression, Reports difficulty concentrating, Reports auditory hallucinations (improved pt reports.) and Reports irritability Mental Status Exam Mental Status Exam Patient Appearance: Appropriate Patient Orientation: Person, Place, Time and Situation Level of Consciousness: Awake and Alert Patient Behavior: Talkative, Cooperative, Anxious, Fatigued, Distractible and Good Eye Contact Mood Description: Depressed and Anxious Affect Description: Flat Patient Cognition Impaired: No Ability to Follow Directions: Good Speech Pattern: Spontaneous Speech Memory Description: Intact Hallucinations: Auditory (decreased) Thought Process: Intact Thought Content: positive for Intact and positive for Suicidal Ideation (denies) Depressive Symptoms: Sleeping More Than Usual, Loss of Int. in Activity, Hopelessness, Unhappiness, Increased Fatigue, Loss of Energy and Difficulty Concentrating Judgement: Fair Diagnostics Vital Signs (24Hr): Vital Signs - 24 hr 12/18/20 21:16 12/18/20 21:30 12/19/20 06:55 Temperature 98.2 F 98.1 F Pulse Rate 75 69 Respiratory Rate 18 Blood Pressure 105/75 92/62 Pulse Oximetry 95 Body Mass Index 30.3 Labs Results: 12/11/20 19:49 12/19/20 08:01 Labs: Laboratory Results - last 48 hr 12/19/20 12/19/20 08:01 08:01 Sodium 141 Potassium 4.5 Chloride 106 Carbon Dioxide 26 Anion Gap 14 BUN 12 Creatinine 0.68 Estim Creat Clear Calc 157.7 Estimated GFR > 60 Random Glucose 87 D Calcium 9.5 D Triglycerides 198 Cholesterol 154 LDL Cholesterol, Calc 78 HDL Cholesterol 37 TSH 2.18 [place] < 0.10 L Medications Medications Current Medications Generic Name Dose Route Start Last Admin Trade Name Freq PRN Reason Stop Dose Admin Al Hydroxide/Mg Hydroxide 30 ml 12/14/20 16:54 Magnesium Hydrox/Alum Hydrox 30 Ml Oral.Susp PO Q6H PRN Heartburn/Nausea Buprenorphine/Naloxone 2 film 12/12/20 09:00 12/19/20 08:04 Buprenorphine/Naloxone 8/2 Mg Film SUBLINGUAL 2 film DAILY MICHAEL Administration Buspirone HCl 15 mg 12/12/20 00:45 12/19/20 08:04 Buspirone Hcl 5 Mg Tablet PO 15 mg TID MICHAEL Administration Chlorpromazine HCl 25 mg 12/19/20 12:22 Chlorpromazine Hcl 25 Mg Tablet PO TID PRN agitation Gabapentin 600 mg 12/12/20 09:00 12/19/20 08:04 Gabapentin 600 Mg Tablet PO 600 mg TID MICHAEL Administration Hydroxyzine HCl 25 mg 12/14/20 16:54 Hydroxyzine Hcl 25 Mg Tablet PO BEDTIME PRN Anxiety Lorazepam 1 mg 12/17/20 18:58 Lorazepam 1 Mg Tablet PO Q6H PRN Anxiety Magnesium Hydroxide 30 ml 12/14/20 16:54 Milk Of Magnesia 30 Ml Oral.Susp PO DAILY PRN Constipation Mirtazapine 15 mg 12/12/20 00:45 12/18/20 21:16 Mirtazapine 15 Mg Tablet PO 15 mg BEDTIME MICHAEL Administration Multivitamins 1 tab 12/16/20 09:00 12/19/20 08:04 B-Complex With Vitamin C Tablet PO 1 tab DAILY MICHAEL Administration Multivitamins/Minerals 1 tab 12/16/20 09:00 12/19/20 08:04 Multivitamin With Minerals Tablet PO 1 tab DAILY MICHAEL Administration Prazosin HCl 2 mg 12/12/20 00:45 12/18/20 21:16 Prazosin Hcl 1 Mg Capsule PO 2 mg BEDTIME MICHAEL Administration Protocol Risperidone 1 mg 12/12/20 09:00 12/19/20 08:04 Risperidone 1 Mg Tablet PO 1 mg DAILY MICHAEL Administration Risperidone 2 mg 12/12/20 00:45 12/18/20 21:15 Risperidone 2 Mg Tablet PO 2 mg BEDTIME MICHAEL Administration Sertraline HCl 75 mg 12/20/20 09:00 Sertraline Hcl 25 Mg Tablet PO DAILY MICHAEL Trazodone HCl 100 mg 12/16/20 12:22 Trazodone Hcl 50 Mg Tablet PO BEDTIME PRN Insomnia Venlafaxine HCl 37.5 mg 12/20/20 09:00 Venlafaxine Hcl 25 Mg Tablet PO DAILY MICHAEL Allergies Allergies Allergy/AdvReac Type Severity Reaction Status Date / Time acetaminophen [From TYLENOL] Allergy Mild STOMACH Verified 11/04/20 11:18 UPSET amoxicillin [AMOXICILLIN] Allergy Unknown SWELLING Verified 11/04/20 11:18 clavulanic acid Allergy Unknown Swelling Verified 11/04/20 11:18 [From AUGMENTIN] Assessment & Plan Assessment & Plan (1) Severe recurrent major depressive disorder with psychosis: Status: Acute Code(s): F33.3 - Major depressive disorder, recurrent, severe with psychotic symptoms Assessment and Plan: Pt has stopped psychotropics and substituted substances for meds with sx exacerbation. Discussed re-starting Sertraline/Thorazine as these have been the most helpful. Increase Sertraline 75 mg daily. Will taper Venlafaxine to 37.5 mg daily Discontinue Thorzaine. Pt too anergic on scheduled dosing. Thorazine 25 mg tid prn. Continue Risperdal, Remeron, Prazosin, Buspirone (2) Cocaine abuse: Status: Acute Code(s): F14.10 - Cocaine abuse, uncomplicated Assessment and Plan: Last use 12/10/20. Denies withdrawal sx. (3) Opiate dependence, continuous: Status: Acute Code(s): F11.20 - Opioid dependence, uncomplicated Assessment and Plan: Last use 12/10/20. Denies withdrawal sx. (4) Alcohol use disorder, severe, dependence: Status: Acute Code(s): F10.20 - Alcohol dependence, uncomplicated Assessment and Plan: Last use 12/10/20, Pt does not believe he is still in withdrawal. Greater than 50% of the session was spent on counseling and/or coordination of care Reason for contiued inpatient stay Substantial Risk for: harm to self, inability to function and rapid decom pensation
[2020-12-19 18:00] VITALS: BP 117/69; PULSE 74; RESP 18; TEMP 36.8; O2SAT 97
[2020-12-19 20:48] VITALS: BP 134/70; PULSE 65
[2020-12-19] MEDS: Prazosin HCL 1 MG CAPSULE 2 MG PO (20:48)
[2020-12-19] MEDS: Mirtazapine 15 MG TABLET PO (20:48)
[2020-12-19] MEDS: risperiDONE 2 MG TABLET PO (20:48)
[2020-12-20 06:47] VITALS: BP 118/64; PULSE 62; TEMP 36.9
[2020-12-20] MEDS: Gabapentin 600 MG TABLET PO ×3 (08:12→20:35)
[2020-12-20] MEDS: busPIRone HCl 5 MG TABLET 15 MG PO ×3 (08:13→20:35)
[2020-12-20] MEDS: Sertraline HCL 25 MG TABLET 75 MG PO (08:14)
[2020-12-20] MEDS: Venlafaxine HCL 25 MG TABLET 37.5 MG PO (08:14)
[2020-12-20] MEDS: Buprenorphine/Naloxone 8/2 mg FILM 2 FILM SUBLINGUAL (08:14)
[2020-12-20] MEDS: risperiDONE 1 MG TABLET PO (08:14)
--- NOTE | 2020-12-20 17:20 | HO.PSYCHPN ---
Subjective Subjective Date of Service: 12/20/20 Reason For Visit: Opiate/cocaine use disorder Recurrent major depres Subjective Notes: Conditional Voluntary Interim History: Benito remains worried about his daytime sedation. He agrees to try splitting suboxone into two dose. Medication Compliance: Yes Side effects from medications: No Attending Groups: No Review of Systems Acute medical concerns: No Medical Review of Systems: unchanged Mental Status Exam Mental Status Exam Patient Appearance: Appropriate Patient Orientation: Person, Place, Time and Situation Level of Consciousness: Awake and Alert Patient Behavior: Talkative, Cooperative, Anxious, Fatigued, Distractible and Good Eye Contact Mood Description: Depressed and Anxious Affect Description: Flat Patient Cognition Impaired: No Ability to Follow Directions: Good Speech Pattern: Spontaneous Speech Memory Description: Intact Hallucinations: Auditory (decreased) Thought Process: Intact Thought Content: positive for Intact, negative for Suicidal Ideation and negative for Homicidal Ideation Depressive Symptoms: Sleeping More Than Usual, Loss of Int. in Activity, Hopelessness, Unhappiness, Increased Fatigue, Loss of Energy and Difficulty Concentrating Judgement: Fair Diagnostics Vital Signs (24Hr): Vital Signs - 24 hr 12/19/20 18:00 12/19/20 20:48 12/20/20 06:47 Temperature 98.3 F 98.4 F Pulse Rate 74 65 62 Respiratory Rate 18 Blood Pressure 117/69 134/70 118/64 Pulse Oximetry 97 Body Mass Index 30.3 Labs Results: 12/11/20 19:49 12/19/20 08:01 Labs: Laboratory Results - last 48 hr 12/19/20 12/19/20 08:01 08:01 Sodium 141 Potassium 4.5 Chloride 106 Carbon Dioxide 26 Anion Gap 14 BUN 12 Creatinine 0.68 Estim Creat Clear Calc 157.7 Estimated GFR > 60 Random Glucose 87 D Calcium 9.5 D Triglycerides 198 Cholesterol 154 LDL Cholesterol, Calc 78 HDL Cholesterol 37 TSH 2.18 [place] < 0.10 L Medications Medications Current Medications Generic Name Dose Route Start Last Admin Trade Name Freq PRN Reason Stop Dose Admin Al Hydroxide/Mg Hydroxide 30 ml 12/14/20 16:54 Magnesium Hydrox/Alum Hydrox 30 Ml Oral.Susp PO Q6H PRN Heartburn/Nausea Buprenorphine/Naloxone 1 film 12/21/20 08:30 Buprenorphine/Naloxone 8/2 Mg Film SUBLINGUAL BID@0830,1330 MICHAEL Buspirone HCl 15 mg 12/12/20 00:45 12/20/20 15:26 Buspirone Hcl 5 Mg Tablet PO 15 mg TID MICHAEL Administration Chlorpromazine HCl 25 mg 12/19/20 12:22 Chlorpromazine Hcl 25 Mg Tablet PO TID PRN agitation Gabapentin 600 mg 12/12/20 09:00 12/20/20 15:26 Gabapentin 600 Mg Tablet PO 600 mg TID MICHAEL Administration Hydroxyzine HCl 25 mg 12/14/20 16:54 Hydroxyzine Hcl 25 Mg Tablet PO BEDTIME PRN Anxiety Lorazepam 1 mg 12/17/20 18:58 Lorazepam 1 Mg Tablet PO Q6H PRN Anxiety Magnesium Hydroxide 30 ml 12/14/20 16:54 Milk Of Magnesia 30 Ml Oral.Susp PO DAILY PRN Constipation Mirtazapine 15 mg 12/12/20 00:45 12/19/20 20:48 Mirtazapine 15 Mg Tablet PO 15 mg BEDTIME MICHAEL Administration Multivitamins 1 tab 12/16/20 09:00 12/20/20 08:13 B-Complex With Vitamin C Tablet PO 1 tab DAILY MICHAEL Administration Multivitamins/Minerals 1 tab 12/16/20 09:00 12/20/20 08:12 Multivitamin With Minerals Tablet PO 1 tab DAILY MICHAEL Administration Prazosin HCl 2 mg 12/12/20 00:45 12/19/20 20:48 Prazosin Hcl 1 Mg Capsule PO 2 mg BEDTIME MICHAEL Administration Protocol Risperidone 1 mg 12/12/20 09:00 12/20/20 08:14 Risperidone 1 Mg Tablet PO 1 mg DAILY MICHAEL Administration Risperidone 2 mg 12/12/20 00:45 12/19/20 20:48 Risperidone 2 Mg Tablet PO 2 mg BEDTIME MICHAEL Administration Sertraline HCl 75 mg 12/20/20 09:00 12/20/20 08:14 Sertraline Hcl 25 Mg Tablet PO 75 mg DAILY MICHAEL Administration Trazodone HCl 100 mg 12/16/20 12:22 Trazodone Hcl 50 Mg Tablet PO BEDTIME PRN Insomnia Venlafaxine HCl 37.5 mg 12/20/20 09:00 12/20/20 08:14 Venlafaxine Hcl 25 Mg Tablet PO 37.5 mg DAILY MICHAEL Administration Allergies Allergies Allergy/AdvReac Type Severity Reaction Status Date / Time acetaminophen [From TYLENOL] Allergy Mild STOMACH Verified 11/04/20 11:18 UPSET amoxicillin [AMOXICILLIN] Allergy Unknown SWELLING Verified 11/04/20 11:18 clavulanic acid Allergy Unknown Swelling Verified 11/04/20 11:18 [From AUGMENTIN] Assessment & Plan Assessment & Plan (1) Severe recurrent major depressive disorder with psychosis: Status: Acute Code(s): F33.3 - Major depressive disorder, recurrent, severe with psychotic symptoms (2) Cocaine abuse: Status: Acute Code(s): F14.10 - Cocaine abuse, uncomplicated (3) Opiate dependence, continuous: Status: Acute Code(s): F11.20 - Opioid dependence, uncomplicated (4) Alcohol use disorder, severe, dependence: Status: Acute Code(s): F10.20 - Alcohol dependence, uncomplicated Assessment and Plan: Pt has stopped psychotropics and substituted substances for meds with sx exacerbation. Discussed re-starting Sertraline/Thorazine as these have been the most helpful. Increase Sertraline 75 mg daily. Will taper Venlafaxine to 37.5 mg daily Discontinue Thorzaine. Pt too anergic on scheduled dosing. Thorazine 25 mg tid prn. Continue Risperdal, Remeron, Prazosin, Buspirone Last use 12/10/20. Denies withdrawal sx. Last use 12/10/20. Denies withdrawal sx. Last use 12/10/20, Pt does not believe he is still in withdrawal. No change to current treatment plan Greater than 50% of the session was spent on counseling and/or coordination of care Patient educated on: diagnosis, medication risk/benefits and substance abuse Informed Consent: further education needed Reason for contiued inpatient stay Substantial Risk for: inability to function and rapid decompensation
[2020-12-20 20:30] VITALS: BP 118/79; PULSE 71; TEMP 36.7
[2020-12-20 20:35] VITALS: BP 118/79; PULSE 71
[2020-12-20] MEDS: Mirtazapine 15 MG TABLET PO (20:35)
[2020-12-20] MEDS: Prazosin HCL 1 MG CAPSULE 2 MG PO (20:35)
[2020-12-20] MEDS: risperiDONE 2 MG TABLET PO (20:35)
[2020-12-20] MEDS: chlorproMAZINE HCl 25 MG TABLET PO (20:35)
[2020-12-21 06:00] VITALS: BP 120/61; PULSE 62; RESP 16; TEMP 36.3; O2SAT 97
[2020-12-21] MEDS: Venlafaxine HCL 25 MG TABLET 37.5 MG PO (08:04)
[2020-12-21] MEDS: Sertraline HCL 25 MG TABLET 75 MG PO (08:05)
[2020-12-21] MEDS: busPIRone HCl 5 MG TABLET 15 MG PO ×3 (08:05→20:22)
[2020-12-21] MEDS: Gabapentin 600 MG TABLET PO ×3 (08:05→20:22)
[2020-12-21] MEDS: Buprenorphine/Naloxone 8/2 mg FILM 1 FILM SUBLINGUAL ×2 (08:06→14:08)
[2020-12-21] MEDS: risperiDONE 1 MG TABLET PO (08:06)
[2020-12-21 18:00] VITALS: BP 103/65; PULSE 77; TEMP 36.7
--- NOTE | 2020-12-21 18:09 | P.PNPSI_ITS ---
Subjective Subjective Date of Service: 12/21/20 Reason For Visit: Opiate/cocaine use disorder Recurrent major depres Subjective Notes: Conditional Voluntary Interim History: Buddhist reports that he feels less sedated with the dose of suboxone being split Medication Compliance: Yes Side effects from medications: No Attending Groups: No Review of Systems Acute medical concerns: No Medical Review of Systems: unchanged Mental Status Exam Mental Status Exam Patient Appearance: Appropriate Patient Orientation: Person, Place, Time and Situation Level of Consciousness: Awake and Alert Patient Behavior: Talkative, Cooperative, Anxious, Fatigued, Distractible and Good Eye Contact Mood Description: Depressed and Anxious Affect Description: Flat Patient Cognition Impaired: No Ability to Follow Directions: Good Speech Pattern: Spontaneous Speech Memory Description: Intact Hallucinations: Auditory (decreased) Thought Process: Intact Thought Content: positive for Intact, negative for Suicidal Ideation and negative for Homicidal Ideation Depressive Symptoms: Sleeping More Than Usual, Loss of Int. in Activity, Hopelessness, Unhappiness, Increased Fatigue, Loss of Energy and Difficulty Concentrating Judgement: Fair Diagnostics Vital Signs (24Hr): Vital Signs - 24 hr 12/20/20 20:30 12/20/20 20:35 12/21/20 06:00 Temperature 98.0 F 97.3 F Pulse Rate 71 71 62 Respiratory Rate 16 Blood Pressure 118/79 118/79 120/61 Pulse Oximetry 97 Body Mass Index 30.3 Labs Results: 12/11/20 19:49 12/19/20 08:01 Medications Medications Current Medications Generic Name Dose Route Start Last Admin Trade Name Freq PRN Reason Stop Dose Admin Al Hydroxide/Mg Hydroxide 30 ml 12/14/20 16:54 Magnesium Hydrox/Alum Hydrox 30 Ml Oral.Susp PO Q6H PRN Heartburn/Nausea Buprenorphine/Naloxone 1 film 12/21/20 08:30 12/21/20 14:08 Buprenorphine/Naloxone 8/2 Mg Film SUBLINGUAL 1 film BID@0830,1330 MICHAEL Administration Buspirone HCl 15 mg 12/12/20 00:45 12/21/20 14:08 Buspirone Hcl 5 Mg Tablet PO 15 mg TID MICHAEL Administration Chlorpromazine HCl 25 mg 12/19/20 12:22 12/20/20 20:35 Chlorpromazine Hcl 25 Mg Tablet PO 25 mg TID PRN Administration agitation Gabapentin 600 mg 12/12/20 09:00 12/21/20 14:08 Gabapentin 600 Mg Tablet PO 600 mg TID MICHAEL Administration Hydroxyzine HCl 25 mg 12/14/20 16:54 Hydroxyzine Hcl 25 Mg Tablet PO BEDTIME PRN Anxiety Lorazepam 1 mg 12/17/20 18:58 Lorazepam 1 Mg Tablet PO Q6H PRN Anxiety Magnesium Hydroxide 30 ml 12/14/20 16:54 Milk Of Magnesia 30 Ml Oral.Susp PO DAILY PRN Constipation Mirtazapine 15 mg 12/12/20 00:45 12/20/20 20:35 Mirtazapine 15 Mg Tablet PO 15 mg BEDTIME MICHAEL Administration Multivitamins 1 tab 12/16/20 09:00 12/21/20 08:05 B-Complex With Vitamin C Tablet PO 1 tab DAILY MICHAEL Administration Multivitamins/Minerals 1 tab 12/16/20 09:00 12/21/20 08:04 Multivitamin With Minerals Tablet PO 1 tab DAILY MICHAEL Administration Prazosin HCl 2 mg 12/12/20 00:45 12/20/20 20:35 Prazosin Hcl 1 Mg Capsule PO 2 mg BEDTIME MICHAEL Administration Protocol Risperidone 1 mg 12/12/20 09:00 12/21/20 08:06 Risperidone 1 Mg Tablet PO 1 mg DAILY MICHAEL Administration Risperidone 2 mg 12/12/20 00:45 12/20/20 20:35 Risperidone 2 Mg Tablet PO 2 mg BEDTIME MICHAEL Administration Sertraline HCl 75 mg 12/20/20 09:00 12/21/20 08:05 Sertraline Hcl 25 Mg Tablet PO 75 mg DAILY MICHAEL Administration Trazodone HCl 100 mg 12/16/20 12:22 Trazodone Hcl 50 Mg Tablet PO BEDTIME PRN Insomnia Venlafaxine HCl 37.5 mg 12/20/20 09:00 12/21/20 08:04 Venlafaxine Hcl 25 Mg Tablet PO 37.5 mg DAILY MICHAEL Administration Allergies Allergies Allergy/AdvReac Type Severity Reaction Status Date / Time acetaminophen [From TYLENOL] Allergy Mild STOMACH Verified 11/04/20 11:18 UPSET amoxicillin [AMOXICILLIN] Allergy Unknown SWELLING Verified 11/04/20 11:18 clavulanic acid Allergy Unknown Swelling Verified 11/04/20 11:18 [From AUGMENTIN] Assessment & Plan Assessment & Plan (1) Severe recurrent major depressive disorder with psychosis: Status: Acute Code(s): F33.3 - Major depressive disorder, recurrent, severe with psychotic symptoms (2) Cocaine abuse: Status: Acute Code(s): F14.10 - Cocaine abuse, uncomplicated (3) Opiate dependence, continuous: Status: Acute Code(s): F11.20 - Opioid dependence, uncomplicated (4) Alcohol use disorder, severe, dependence: Status: Acute Code(s): F10.20 - Alcohol dependence, uncomplicated Assessment and Plan: Pt has stopped psychotropics and substituted substances for meds with sx exacerbation. Discussed re-starting Sertraline/Thorazine as these have been the most helpful. Increase Sertraline 75 mg daily. Will taper Venlafaxine to 37.5 mg daily Discontinue Thorzaine. Pt too anergic on scheduled dosing. Thorazine 25 mg tid prn. Continue Risperdal, Remeron, Prazosin, Buspirone Last use 12/10/20. Denies withdrawal sx. Last use 12/10/20. Denies withdrawal sx. Last use 12/10/20, Pt does not believe he is still in withdrawal. No change to current treatment plan Greater than 50% of the session was spent on counseling and/or coordination of care Patient educated on: diagnosis, medication risk/benefits and substance abuse Informed Consent: further education needed Reason for contiued inpatient stay Substantial Risk for: rapid decompensation
[2020-12-21 20:21] VITALS: BP 103/65; PULSE 77
[2020-12-21] MEDS: risperiDONE 2 MG TABLET PO (20:21)
[2020-12-21] MEDS: chlorproMAZINE HCl 25 MG TABLET PO (20:21)
[2020-12-21] MEDS: Prazosin HCL 1 MG CAPSULE 2 MG PO (20:21)
[2020-12-21] MEDS: Mirtazapine 15 MG TABLET PO (20:21)
[2020-12-21] MEDS: LORazepam 1 MG TABLET PO (20:22)
[2020-12-22 06:00] VITALS: BP 114/72; PULSE 62; RESP 16; TEMP 36.6; O2SAT 97
[2020-12-22] MEDS: Buprenorphine/Naloxone 8/2 mg FILM 1 FILM SUBLINGUAL ×2 (08:12→15:26)
[2020-12-22] MEDS: Sertraline HCL 25 MG TABLET 75 MG PO (08:12)
[2020-12-22] MEDS: Venlafaxine HCL 25 MG TABLET 37.5 MG PO (08:13)
[2020-12-22] MEDS: risperiDONE 1 MG TABLET PO (08:13)
[2020-12-22] MEDS: Gabapentin 600 MG TABLET PO ×3 (08:13→20:27)
[2020-12-22] MEDS: busPIRone HCl 5 MG TABLET 15 MG PO ×3 (08:13→20:26)
--- NOTE | 2020-12-22 14:25 | HO.PSYCHPN ---
Subjective Subjective Date of Service: 12/22/20 Reason For Visit: Opiate/cocaine use disorder Recurrent major depres Subjective Notes: Conditional Voluntary Interim History: Reports improvement with medication changes, continues to request Risperdal discontinuation and return to Thorazine 75 mg a.m. 75 mg daily prn, 100 mg hs. Currently at 25 mg tid prn due to sedation last week. Will add bid dosing and remove a.m. Risperdal dosing. Suboxone split which is helping pt feel less tired during the day as well. Reports sleep is intermittent, improved, daytime sedation decreased, mood beginning to feel sertraline take effect, SI intermittent. Discussed SE possibility-joints swollen with pain for months now. Review of labs and +Hep C result. Discussed referral to OP GI team at [facility] to discuss treatment. Pt wanting to make that appointment himself after discharge. Plans to return to family when discharged he reports, encouraged to reconsider [facility] programming to assist in sobriety and prepare for Hep C Rx clearance. Pt to consider. Review of Systems Musculoskeletal: Reports arthralgias and Reports joint swelling Reports behavioral changes Psychiatric: Reports abnormal sleep pattern, Reports anxiety, Reports behavioral changes, Reports depression, Reports hopelessness, Reports irritability, Reports anhedonia and Reports suicidal ideation Mental Status Exam Mental Status Exam Patient Appearance: Appropriate Patient Orientation: Person, Place, Time and Situation Level of Consciousness: Alert Patient Behavior: Talkative, Cooperative, Fearful (concern about +Hep C testing result) and Good Eye Contact Mood Description: Constricted and Depressed Affect Description: Constricted Patient Cognition Impaired: No Ability to Follow Directions: Good Speech Pattern: Spontaneous Speech Memory Description: Episodic Impaired Hallucinations: None Delusions: Not Present Thought Process: Distracted and Rumination Thought Content: positive for Suicidal Ideation (present-no plans to act on this while on the unit.) Depressive Symptoms: Increased Anxiety, Increased Irritability and Difficulty Sleeping Judgement: Fair Diagnostics Vital Signs (24Hr): Vital Signs - 24 hr 12/21/20 18:00 12/21/20 20:21 12/22/20 06:00 Temperature 98.1 F 97.9 F Pulse Rate 77 77 62 Respiratory Rate 16 Blood Pressure 103/65 103/65 114/72 Pulse Oximetry 97 Body Mass Index 30.3 Labs Results: 12/11/20 19:49 12/19/20 08:01 Medications Medications Current Medications Generic Name Dose Route Start Last Admin Trade Name Freq PRN Reason Stop Dose Admin Al Hydroxide/Mg Hydroxide 30 ml 12/14/20 16:54 Magnesium Hydrox/Alum Hydrox 30 Ml Oral.Susp PO Q6H PRN Heartburn/Nausea Buprenorphine/Naloxone 1 film 12/21/20 08:30 12/22/20 08:12 Buprenorphine/Naloxone 8/2 Mg Film SUBLINGUAL 1 film BID@0830,1330 MICHAEL Administration Buspirone HCl 15 mg 12/12/20 00:45 12/22/20 08:13 Buspirone Hcl 5 Mg Tablet PO 15 mg TID MICHAEL Administration Chlorpromazine HCl 25 mg 12/19/20 12:22 12/21/20 20:21 Chlorpromazine Hcl 25 Mg Tablet PO 25 mg TID PRN Administration agitation Chlorpromazine HCl 25 mg 12/22/20 21:00 Chlorpromazine Hcl 25 Mg Tablet PO BID MICHAEL Gabapentin 600 mg 12/12/20 09:00 12/22/20 08:13 Gabapentin 600 Mg Tablet PO 600 mg TID MICHAEL Administration Hydroxyzine HCl 25 mg 12/14/20 16:54 Hydroxyzine Hcl 25 Mg Tablet PO BEDTIME PRN Anxiety Lorazepam 1 mg 12/17/20 18:58 12/21/20 20:22 Lorazepam 1 Mg Tablet PO 1 mg Q6H PRN Administration Anxiety Magnesium Hydroxide 30 ml 12/14/20 16:54 Milk Of Magnesia 30 Ml Oral.Susp PO DAILY PRN Constipation Mirtazapine 15 mg 12/12/20 00:45 12/21/20 20:21 Mirtazapine 15 Mg Tablet PO 15 mg BEDTIME MICHAEL Administration Multivitamins 1 tab 12/16/20 09:00 12/22/20 08:12 B-Complex With Vitamin C Tablet PO 1 tab DAILY MICHAEL Administration Multivitamins/Minerals 1 tab 12/16/20 09:00 12/22/20 08:12 Multivitamin With Minerals Tablet PO 1 tab DAILY MICHAEL Administration Prazosin HCl 2 mg 12/12/20 00:45 12/21/20 20:21 Prazosin Hcl 1 Mg Capsule PO 2 mg BEDTIME MICHAEL Administration Protocol Risperidone 2 mg 12/12/20 00:45 12/21/20 20:21 Risperidone 2 Mg Tablet PO 2 mg BEDTIME MICHAEL Administration Sertraline HCl 75 mg 12/20/20 09:00 12/22/20 08:12 Sertraline Hcl 25 Mg Tablet PO 75 mg DAILY MICHAEL Administration Trazodone HCl 100 mg 12/16/20 12:22 Trazodone Hcl 50 Mg Tablet PO BEDTIME PRN Insomnia Venlafaxine HCl 37.5 mg 12/20/20 09:00 12/22/20 08:13 Venlafaxine Hcl 25 Mg Tablet PO 37.5 mg DAILY MICHAEL Administration Allergies Allergies Allergy/AdvReac Type Severity Reaction Status Date / Time acetaminophen [From TYLENOL] Allergy Mild STOMACH Verified 11/04/20 11:18 UPSET amoxicillin [AMOXICILLIN] Allergy Unknown SWELLING Verified 11/04/20 11:18 clavulanic acid Allergy Unknown Swelling Verified 11/04/20 11:18 [From AUGMENTIN] Assessment & Plan Assessment & Plan (1) Severe recurrent major depressive disorder with psychosis: Status: Acute Code(s): F33.3 - Major depressive disorder, recurrent, severe with psychotic symptoms (2) Cocaine abuse: Status: Acute Code(s): F14.10 - Cocaine abuse, uncomplicated (3) Opiate dependence, continuous: Status: Acute Code(s): F11.20 - Opioid dependence, uncomplicated (4) Alcohol use disorder, severe, dependence: Status: Acute Code(s): F10.20 - Alcohol dependence, uncomplicated Assessment and Plan: Pt has stopped psychotropics and substituted substances for meds with sx exacerbation. Discussed re-starting Sertraline/Thorazine as these have been the most helpful. Increase Sertraline 75 mg daily. Titration to continue. Will taper Venlafaxine to 37.5 mg daily. Tapering to continue Thorazine 25 mg bid. Titration to continue Thorazine 25 mg tid prn. Continue Risperdal, Remeron, Prazosin, Buspirone +Hepatitis C screen-discussed referral with pt to GI for treatment planning. He would prefer to do this after discharge. Last use 12/10/20. Denies withdrawal sx. Last use 12/10/20. Denies withdrawal sx. Last use 12/10/20, Pt does not believe he is still in withdrawal. No change to current treatment plan Greater than 50% of the session was spent on counseling and/or coordination of care Reason for contiued inpatient stay Substantial Risk for: harm to self, inability to function, rapid decompensation and med/psych decompensation
[2020-12-22] MEDS: LORazepam 1 MG TABLET PO (15:28)
[2020-12-22] MEDS: chlorproMAZINE HCl 25 MG TABLET PO ×2 (17:07→20:27)
[2020-12-22 18:00] VITALS: BP 135/69; PULSE 60; TEMP 36.8
[2020-12-22 20:27] VITALS: BP 135/69; PULSE 60
[2020-12-22] MEDS: Benztropine Mesylate 0.5 MG TABLET PO (20:27)
[2020-12-22] MEDS: Mirtazapine 15 MG TABLET PO (20:27)
[2020-12-22] MEDS: Prazosin HCL 1 MG CAPSULE 2 MG PO (20:27)
[2020-12-22] MEDS: risperiDONE 2 MG TABLET PO (20:29)
[2020-12-23] MEDS: hydrOXYzine HCL 25 MG TABLET PO (00:31)
[2020-12-23] MEDS: chlorproMAZINE HCl 25 MG TABLET PO ×2 (00:31→08:24)
[2020-12-23 06:35] VITALS: BP 116/62; PULSE 59; RESP 18; TEMP 36.8; O2SAT 95
[2020-12-23] MEDS: Venlafaxine HCL 25 MG TABLET 37.5 MG PO (08:23)
[2020-12-23] MEDS: busPIRone HCl 5 MG TABLET 15 MG PO ×3 (08:23→20:57)
[2020-12-23] MEDS: Sertraline HCL 25 MG TABLET 75 MG PO (08:24)
[2020-12-23] MEDS: Gabapentin 600 MG TABLET PO ×3 (08:24→20:58)
[2020-12-23] MEDS: Benztropine Mesylate 0.5 MG TABLET PO ×2 (08:25→20:57)
[2020-12-23] MEDS: Buprenorphine/Naloxone 8/2 mg FILM 1 FILM SUBLINGUAL ×2 (08:59→14:25)
--- NOTE | 2020-12-23 13:47 | HO.PSYCHPN ---
Subjective Subjective Date of Service: 12/23/20 Reason For Visit: Opiate/cocaine use disorder Recurrent major depres Subjective Notes: Conditional Voluntary Interim History: Pt reports inability to sleep during the night. In bed today. Discussed Thorazine intolerance with daytime sedation. Discussed regime changes to manage mood, minimize SE, sedative effects. Discussed discharge. Continues to refuse to go to treatment programs. States he will comply with medications and out pt appointments. Encouraged to choose a plan to support sobriety and a plan to help him qualify for treatment of Hepatitis C which requires extended sobriety Medication Compliance: Yes Side effects from medications: Yes Attending Groups: No Review of Systems Constitutional: Reports daytime sleepiness, Reports difficulty sleeping, Reports fatigue, Reports lethargy and Reports malaise Reports behavioral changes Psychiatric: Reports abnormal sleep pattern, Reports anxiety, Reports behavioral changes, Reports depression, Reports difficulty concentrating, Reports irritability, Reports homicidal ideation (denies) and Reports suicidal ideation (denies) Endocrine: Reports fatigue Mental Status Exam Mental Status Exam Patient Appearance: Appropriate Patient Orientation: Person, Place, Time and Situation Level of Consciousness: Alert Patient Behavior: Appropriate, Talkative, Cooperative, Passive, Fatigued, Distractible and Good Eye Contact Mood Description: Withdrawn and Depressed Affect Description: Flat Patient Cognition Impaired: No Ability to Follow Directions: Good Speech Pattern: Spontaneous Speech Memory Description: Intact Hallucinations: None Delusions: Not Present Thought Content: positive for [place], positive for Circumstantial, positive for Goal Oriented, positive for Suicidal Ideation (denies) and positive for Homicidal Ideation (denies) Depressive Symptoms: Insomnia, Difficulty Sleeping and Thoughts of /Suicide (denies SI plan or intent) Judgement: Fair Diagnostics Vital Signs (24Hr): Vital Signs - 24 hr 12/22/20 18:00 12/22/20 20:27 12/23/20 06:35 Temperature 98.2 F 98.2 F Pulse Rate 60 60 59 Respiratory Rate 18 Blood Pressure 135/69 135/69 116/62 Pulse Oximetry 95 Body Mass Index 30.3 Labs Results: 12/11/20 19:49 12/19/20 08:01 Medications Medications Current Medications Generic Name Dose Route Start Last Admin Trade Name Freq PRN Reason Stop Dose Admin Al Hydroxide/Mg Hydroxide 30 ml 12/14/20 16:54 Magnesium Hydrox/Alum Hydrox 30 Ml Oral.Susp PO Q6H PRN Heartburn/Nausea Benztropine Mesylate 0.5 mg 12/22/20 21:00 12/23/20 08:25 Benztropine Mesylate 0.5 Mg Tablet PO 0.5 mg BID MICHAEL Administration Buprenorphine/Naloxone 1 film 12/21/20 08:30 12/23/20 08:59 Buprenorphine/Naloxone 8/2 Mg Film SUBLINGUAL 1 film BID@0830,1330 MICHAEL Administration Buspirone HCl 15 mg 12/12/20 00:45 12/23/20 08:23 Buspirone Hcl 5 Mg Tablet PO 15 mg TID MICHAEL Administration Chlorpromazine HCl 25 mg 12/19/20 12:22 12/23/20 00:31 Chlorpromazine Hcl 25 Mg Tablet PO 25 mg TID PRN Administration agitation Chlorpromazine HCl 25 mg 12/22/20 21:00 12/23/20 08:24 Chlorpromazine Hcl 25 Mg Tablet PO 25 mg BID MICHAEL Administration Gabapentin 600 mg 12/12/20 09:00 12/23/20 08:24 Gabapentin 600 Mg Tablet PO 600 mg TID MICHAEL Administration Hydroxyzine HCl 25 mg 12/14/20 16:54 12/23/20 00:31 Hydroxyzine Hcl 25 Mg Tablet PO 25 mg BEDTIME PRN Administration Anxiety Magnesium Hydroxide 30 ml 12/14/20 16:54 Milk Of Magnesia 30 Ml Oral.Susp PO DAILY PRN Constipation Mirtazapine 15 mg 12/12/20 00:45 12/22/20 20:27 Mirtazapine 15 Mg Tablet PO 15 mg BEDTIME MICHAEL Administration Multivitamins 1 tab 12/16/20 09:00 12/23/20 08:24 B-Complex With Vitamin C Tablet PO 1 tab DAILY MICHAEL Administration Multivitamins/Minerals 1 tab 12/16/20 09:00 12/23/20 08:24 Multivitamin With Minerals Tablet PO 1 tab DAILY MICHAEL Administration Prazosin HCl 2 mg 12/12/20 00:45 12/22/20 20:27 Prazosin Hcl 1 Mg Capsule PO 2 mg BEDTIME MICHAEL Administration Protocol Risperidone 2 mg 12/12/20 00:45 12/22/20 20:29 Risperidone 2 Mg Tablet PO 2 mg BEDTIME MICHAEL Administration Sertraline HCl 75 mg 12/20/20 09:00 12/23/20 08:24 Sertraline Hcl 25 Mg Tablet PO 75 mg DAILY MICHAEL Administration Trazodone HCl 100 mg 12/16/20 12:22 Trazodone Hcl 50 Mg Tablet PO BEDTIME PRN Insomnia Venlafaxine HCl 37.5 mg 12/20/20 09:00 12/23/20 08:23 Venlafaxine Hcl 25 Mg Tablet PO 37.5 mg DAILY MICHAEL Administration Allergies Allergies Allergy/AdvReac Type Severity Reaction Status Date / Time acetaminophen [From TYLENOL] Allergy Mild STOMACH Verified 11/04/20 11:18 UPSET amoxicillin [AMOXICILLIN] Allergy Unknown SWELLING Verified 11/04/20 11:18 clavulanic acid Allergy Unknown Swelling Verified 11/04/20 11:18 [From AUGMENTIN] Assessment & Plan Assessment & Plan (1) Severe recurrent major depressive disorder with psychosis: Status: Acute Code(s): F33.3 - Major depressive disorder, recurrent, severe with psychotic symptoms (2) Cocaine abuse: Status: Acute Code(s): F14.10 - Cocaine abuse, uncomplicated (3) Opiate dependence, continuous: Status: Acute Code(s): F11.20 - Opioid dependence, uncomplicated (4) Alcohol use disorder, severe, dependence: Status: Acute Code(s): F10.20 - Alcohol dependence, uncomplicated Assessment and Plan: Pt had stopped psychotropics and substituted substances for meds with sx exacerbation. Discussed re-starting Sertraline/Thorazine as these have been the most helpful he reports. This has not been effective. Sertraline titration to continue. Discontinue Venlafaxine Discontinue Thorazine. Discontinue Risperdal Olanzapine 10 mg hs Continue Remeron, Prazosin, Buspirone +Hepatitis C screen-discussed referral with pt to GI for treatment planning. He would prefer to do this after discharge. Last use 12/10/20. Denies withdrawal sx. Last use 12/10/20. Denies withdrawal sx. Last use 12/10/20, Pt does not believe he is still in withdrawal. No change to current treatment plan Greater than 50% of the session was spent on counseling and/or coordination of care Reason for contiued inpatient stay Substantial Risk for: harm to self, inability to function and rapid decompensation
[2020-12-23 17:26] VITALS: BP 103/58; PULSE 85; RESP 18; TEMP 36.9; O2SAT 95
[2020-12-23 20:58] VITALS: BP 103/65; PULSE 78
[2020-12-23] MEDS: OLANZapine 7.5 MG TABLET PO (20:58)
[2020-12-23] MEDS: Mirtazapine 15 MG TABLET PO (20:58)
[2020-12-23] MEDS: Prazosin HCL 1 MG CAPSULE 2 MG PO (20:58)
[2020-12-23 21:01] VITALS: BP 103/65; PULSE 78; RESP 18; TEMP 36.8; O2SAT 97
[2020-12-24 06:00] VITALS: BP 101/55; PULSE 71; RESP 16; TEMP 35.8; O2SAT 97
[2020-12-24] MEDS: Buprenorphine/Naloxone 8/2 mg FILM 1 FILM SUBLINGUAL ×2 (08:58→13:12)
[2020-12-24] MEDS: Sertraline HCL 25 MG TABLET 75 MG PO (08:58)
[2020-12-24] MEDS: Benztropine Mesylate 0.5 MG TABLET PO ×2 (08:59→20:11)
[2020-12-24] MEDS: busPIRone HCl 5 MG TABLET 15 MG PO ×3 (08:59→20:11)
[2020-12-24] MEDS: Gabapentin 600 MG TABLET PO ×3 (08:59→20:11)
[2020-12-24] MEDS: chlorproMAZINE HCl 100 MG TABLET PO (09:31)
--- NOTE | 2020-12-24 11:38 | P.PNPSI_ITS ---
Subjective Subjective Date of Service: 12/24/20 Reason For Visit: Opiate/cocaine use disorder Recurrent major depres Subjective Notes: Conditional Voluntary Interim History: Pt reports auditory perceptual alterations, command in nature. Asking for prn to assist in sx mgt. Pt received Thorazine 100 mg po prn with appropriate relief. Met with pt to review regime. Reports he tolerated Olanzapine dose #1 last night-awoke a few times, med was not too strong, he is not feeling sedate this a.m. (reports ~20minute nap after Thorazine prn with good effect this a.m.). Benztropine, Suboxone, Buspirone, Gabapentin, Hydroxyzine, Mirtazapine, have been constant. Prazosin was decreased to 2 mg, Sertraline in titration-pt feeling some relief yet remains depressed-Scale 6/10. Trazodone has never worked , Thorazine- sometimes it is just great and other times it does not work at all. Discussed titration of Olanzapine, Sertraline, Prazosin-discontinuation of Trazodone, and using Thorazine as a prn which he agrees to. It has been a challenge to achieve a balance this admission of symptom mgt with minimal daytime sedation/breakthrough sx. Pt believes we are on the correct path to that goal. Medication Compliance: Yes Side effects from medications: Yes (breakthrough sx of auditory perceptual alterations this morning.) Attending Groups: Yes Review of Systems Review of Systems Yes all other systems are reviewed and are negative (denies) Psychiatric: Reports abnormal sleep pattern, Reports depression, Reports difficulty concentrating, Reports auditory hallucinations and Reports suicidal ideation (denies today) Mental Status Exam Mental Status Exam Patient Appearance: Appropriate Patient Orientation: Person, Place, Time and Situation Level of Consciousness: Alert Patient Behavior: Appropriate, Talkative, Cooperative, Anxious, Distractible and Good Eye Contact Mood Description: Withdrawn and Depressed Affect Description: Flat Patient Cognition Impaired: No Ability to Follow Directions: Good Speech Pattern: Spontaneous Speech Memory Description: Intact Hallucinations: Auditory (improved this a.m. with prn medication) Delusions: Not Present Thought Process: Distracted Thought Content: positive for [place] Depressive Symptoms: Difficulty Sleeping, Sleeping More Than Usual and Loss of Energy Judgement: Fair Diagnostics Vital Signs (24Hr): Vital Signs - 24 hr 12/23/20 17:26 12/23/20 20:58 12/23/20 21:01 Temperature 98.4 F 98.3 F Pulse Rate 85 78 78 Respiratory Rate 18 18 Blood Pressure 103/58 L 103/65 103/65 Pulse Oximetry 95 97 12/24/20 06:00 Temperature 96.5 F L Pulse Rate 71 Respiratory Rate 16 Blood Pressure 101/55 L Pulse Oximetry 97 Body Mass Index 30.3 Labs Results: 12/11/20 19:49 12/19/20 08:01 Medications Medications Current Medications Generic Name Dose Route Start Last Admin Trade Name Freq PRN Reason Stop Dose Admin Al Hydroxide/Mg Hydroxide 30 ml 12/14/20 16:54 Magnesium Hydrox/Alum Hydrox 30 Ml Oral.Susp PO Q6H PRN Heartburn/Nausea Benztropine Mesylate 0.5 mg 12/22/20 21:00 12/24/20 08:59 Benztropine Mesylate 0.5 Mg Tablet PO 0.5 mg BID MICHAEL Administration Buprenorphine/Naloxone 1 film 12/21/20 08:30 12/24/20 08:58 Buprenorphine/Naloxone 8/2 Mg Film SUBLINGUAL 1 film BID@0830,1330 MICHAEL Administration Buspirone HCl 15 mg 12/12/20 00:45 12/24/20 08:59 Buspirone Hcl 5 Mg Tablet PO 15 mg TID MICHAEL Administration Gabapentin 600 mg 12/12/20 09:00 12/24/20 08:59 Gabapentin 600 Mg Tablet PO 600 mg TID MICHAEL Administration Hydroxyzine HCl 25 mg 12/14/20 16:54 12/23/20 00:31 Hydroxyzine Hcl 25 Mg Tablet PO 25 mg BEDTIME PRN Administration Anxiety Magnesium Hydroxide 30 ml 12/14/20 16:54 Milk Of Magnesia 30 Ml Oral.Susp PO DAILY PRN Constipation Mirtazapine 15 mg 12/12/20 00:45 12/23/20 20:58 Mirtazapine 15 Mg Tablet PO 15 mg BEDTIME MICHAEL Administration Multivitamins 1 tab 12/16/20 09:00 12/24/20 08:59 B-Complex With Vitamin C Tablet PO 1 tab DAILY MICHAEL Administration Multivitamins/Minerals 1 tab 12/16/20 09:00 12/24/20 08:59 Multivitamin With Minerals Tablet PO 1 tab DAILY MICHAEL Administration Olanzapine 7.5 mg 12/23/20 21:00 12/23/20 20:58 Olanzapine 7.5 Mg Tablet PO 7.5 mg BEDTIME MICHAEL Administration Prazosin HCl 2 mg 12/12/20 00:45 12/23/20 20:58 Prazosin Hcl 1 Mg Capsule PO 2 mg BEDTIME MICHAEL Administration Protocol Sertraline HCl 75 mg 12/20/20 09:00 12/24/20 08:58 Sertraline Hcl 25 Mg Tablet PO 75 mg DAILY MICHAEL Administration Trazodone HCl 100 mg 12/16/20 12:22 Trazodone Hcl 50 Mg Tablet PO BEDTIME PRN Insomnia Allergies Allergies Allergy/AdvReac Type Severity Reaction Status Date / Time acetaminophen [From TYLENOL] Allergy Mild STOMACH Verified 11/04/20 11:18 UPSET amoxicillin [AMOXICILLIN] Allergy Unknown SWELLING Verified 11/04/20 11:18 clavulanic acid Allergy Unknown Swelling Verified 11/04/20 11:18 [From AUGMENTIN] Assessment & Plan Assessment & Plan (1) Severe recurrent major depressive disorder with psychosis: Status: Acute Code(s): F33.3 - Major depressive disorder, recurrent, severe with psychotic symptoms (2) Cocaine abuse: Status: Acute Code(s): F14.10 - Cocaine abuse, uncomplicated (3) Opiate dependence, continuous: Status: Acute Code(s): F11.20 - Opioid dependence, uncomplicated (4) Alcohol use disorder, severe, dependence: Status: Acute Code(s): F10.20 - Alcohol dependence, uncomplicated Assessment and Plan: Pt had stopped psychotropics and substituted substances for meds with sx exacerbation. Discussed re-starting Sertraline/Thorazine as these have been the most helpful he reports. This has not been effective. Increase Sertraline to 100 mg daily. Increase Prazosin to 3 mg HS Thorazine 50 mg tid prn symptoms of psychosis Increase Olanzapine to 15 mg HS Discontinue Trazodone-by history pt reports it is not helpful and may even have promoted symptoms in the past. Continue Remeron, Benztropine, Buspirone, Gabapentin, Hydroxyzine, +Hepatitis C screen-discussed referral with pt to GI for treatment planning. He would prefer to do this after discharge. Last use 12/10/20. Denies withdrawal sx. Last use 12/10/20. Denies withdrawal sx. Last use 12/10/20, Pt does not believe he is still in withdrawal. No change to current treatment plan Greater than 50% of the session was spent on counseling and/or coordination of care Reason for contiued inpatient stay Substantial Risk for: harm to self, inability to function and rapid decompensation
[2020-12-24 18:00] VITALS: BP 104/63; PULSE 76; TEMP 36.7
[2020-12-24] MEDS: OLANZapine 7.5 MG TABLET 15 MG PO (20:11)
[2020-12-24] MEDS: Mirtazapine 15 MG TABLET PO (20:11)
[2020-12-24 20:12] VITALS: BP 112/61; PULSE 84
[2020-12-24] MEDS: Prazosin HCL 1 MG CAPSULE 3 MG PO (20:12)
[2020-12-25 06:00] VITALS: BP 100/63; PULSE 60; RESP 16; TEMP 36.3; O2SAT 97
[2020-12-25] MEDS: Gabapentin 600 MG TABLET PO ×3 (09:06→20:08)
[2020-12-25] MEDS: Benztropine Mesylate 0.5 MG TABLET PO (09:06)
[2020-12-25] MEDS: busPIRone HCl 5 MG TABLET 15 MG PO ×3 (09:06→20:09)
[2020-12-25] MEDS: Sertraline HCL 100 MG TABLET PO (09:07)
[2020-12-25] MEDS: Buprenorphine/Naloxone 8/2 mg FILM 1 FILM SUBLINGUAL ×2 (09:07→13:35)
[2020-12-25 09:59] VITALS: BMI 31.4
--- NOTE | 2020-12-25 11:00 | HO.PSYCHPN ---
Subjective Subjective Date of Service: 12/25/20 Reason For Visit: Opiate/cocaine use disorder Recurrent major depres Subjective Notes: Conditional Voluntary Interim History: Pt reports he was able to sleep. He reports some relief with regime changes, however continues to have some auditory perceptual alterations in the morning-discussed titrating Olanzapine to 20 mg HS which he would like to trial. He reports he has not required prn Thorazine in a day. Also reports muscle stiffness and requests Benztropine titration or a benzo. Discussion of titration vs. adding the benzo. Reports feeling prepared for discharge-will stay with an uncle and with friends to await admit to a longer term program. Discussed having labs /EKG in the a.m. and he concurs. Medication Compliance: Yes Side effects from medications: No Attending Groups: Yes Review of Systems Review of Systems Yes all other systems are reviewed and are negative (denies) Musculoskeletal: Reports stiffness (will titrate benztropine) Psychiatric: Reports auditory hallucinations and Reports suicidal ideation (denies) Mental Status Exam Mental Status Exam Patient Appearance: Appropriate Patient Orientation: Person, Place, Time and Situation Level of Consciousness: Awake and Alert Patient Behavior: Appropriate, Talkative and Good Eye Contact Mood Description: Withdrawn and Constricted Affect Description: Constricted and Apprehensive Patient Cognition Impaired: No Ability to Follow Directions: Good Speech Pattern: Spontaneous Speech Memory Description: Episodic Impaired Hallucinations: Auditory (reports these are resolving with olanzapine titration) Delusions: Not Present Thought Process: Goal Oriented Thought Content: positive for [place] Depressive Symptoms: Thoughts of /Suicide (denies) Judgement: Good Diagnostics Vital Signs (24Hr): Vital Signs - 24 hr 12/24/20 18:00 12/24/20 20:12 12/25/20 06:00 Temperature 98.0 F 97.3 F Pulse Rate 76 84 60 Respiratory Rate 16 Blood Pressure 104/63 112/61 100/63 Pulse Oximetry 97 Body Mass Index 31.4 Labs Results: 12/11/20 19:49 12/19/20 08:01 Medications Medications Current Medications Generic Name Dose Route Start Last Admin Trade Name Freq PRN Reason Stop Dose Admin Al Hydroxide/Mg Hydroxide 30 ml 12/14/20 16:54 Magnesium Hydrox/Alum Hydrox 30 Ml Oral.Susp PO Q6H PRN Heartburn/Nausea Benztropine Mesylate 0.5 mg 12/22/20 21:00 12/25/20 09:06 Benztropine Mesylate 0.5 Mg Tablet PO 0.5 mg BID MICHAEL Administration Buprenorphine/Naloxone 1 film 12/21/20 08:30 12/25/20 09:07 Buprenorphine/Naloxone 8/2 Mg Film SUBLINGUAL 1 film BID@0830,1330 MICHAEL Administration Buspirone HCl 15 mg 12/12/20 00:45 12/25/20 09:06 Buspirone Hcl 5 Mg Tablet PO 15 mg TID MICHAEL Administration Chlorpromazine HCl 50 mg 12/24/20 12:19 Chlorpromazine Hcl 25 Mg Tablet PO TID PRN Psychosis Gabapentin 600 mg 12/12/20 09:00 12/25/20 09:06 Gabapentin 600 Mg Tablet PO 600 mg TID MICHAEL Administration Hydroxyzine HCl 25 mg 12/14/20 16:54 12/23/20 00:31 Hydroxyzine Hcl 25 Mg Tablet PO 25 mg BEDTIME PRN Administration Anxiety Magnesium Hydroxide 30 ml 12/14/20 16:54 Milk Of Magnesia 30 Ml Oral.Susp PO DAILY PRN Constipation Mirtazapine 15 mg 12/12/20 00:45 12/24/20 20:11 Mirtazapine 15 Mg Tablet PO 15 mg BEDTIME MICHAEL Administration Multivitamins 1 tab 12/16/20 09:00 12/25/20 09:06 B-Complex With Vitamin C Tablet PO 1 tab DAILY MICHAEL Administration Multivitamins/Minerals 1 tab 12/16/20 09:00 12/25/20 09:06 Multivitamin With Minerals Tablet PO 1 tab DAILY MICHAEL Administration Olanzapine 15 mg 12/24/20 21:00 12/24/20 20:11 Olanzapine 7.5 Mg Tablet PO 15 mg BEDTIME MICHAEL Administration Prazosin HCl 3 mg 12/24/20 21:00 12/24/20 20:12 Prazosin Hcl 1 Mg Capsule PO 3 mg BEDTIME MICHAEL Administration Protocol Sertraline HCl 100 mg 12/25/20 09:00 12/25/20 09:07 Sertraline Hcl 100 Mg Tablet PO 100 mg DAILY MICHAEL Administration Allergies Allergies Allergy/AdvReac Type Severity Reaction Status Date / Time acetaminophen [From TYLENOL] Allergy Mild STOMACH Verified 11/04/20 11:18 UPSET amoxicillin [AMOXICILLIN] Allergy Unknown SWELLING Verified 11/04/20 11:18 clavulanic acid Allergy Unknown Swelling Verified 11/04/20 11:18 [From AUGMENTIN] Assessment & Plan Assessment & Plan (1) Severe recurrent major depressive disorder with psychosis: Status: Acute Code(s): F33.3 - Major depressive disorder, recurrent, severe with psychotic symptoms (2) Cocaine abuse: Status: Acute Code(s): F14.10 - Cocaine abuse, uncomplicated (3) Opiate dependence, continuous: Status: Acute Code(s): F11.20 - Opioid dependence, uncomplicated (4) Alcohol use disorder, severe, dependence: Status: Acute Code(s): F10.20 - Alcohol dependence, uncomplicated Assessment and Plan: Pt had stopped psychotropics and substituted substances for meds with sx exacerbation. Discussed re-starting Sertraline/Thorazine as these have been the most helpful he reports. This has not been effective. Tolerating Sertraline 100 mg daily. Tolerating Prazosin 3 mg HS Thorazine 50 mg tid prn symptoms of psychosis- not used today Increase Olanzapine to 20 mg HS- some auditory perceptual alterations this a.m. Increase Benztropine to 1 mg bid-reporting muscle stiffness Discontinue Trazodone-by history pt reports it is not helpful and may even have promoted symptoms in the past. Continue Remeron, Buspirone, Gabapentin, Hydroxyzine, +Hepatitis C screen-discussed referral with pt to GI for treatment planning. He would prefer to do this after discharge. Labs/EKG 12/26 prior to discharge. Last use 12/10/20. Denies withdrawal sx. Last use 12/10/20. Denies withdrawal sx. Last use 12/10/20, Pt does not believe he is still in withdrawal. No change to current treatment plan Greater than 50% of the session was spent on counseling and/or coordination of care Reason for contiued inpatient stay Substantial Risk for: rapid decompensation
[2020-12-25] MEDS: chlorproMAZINE HCl 25 MG TABLET 50 MG PO (13:35)
[2020-12-25 17:47] VITALS: BP 108/62; PULSE 67; RESP 18; TEMP 36.7; O2SAT 96
[2020-12-25 20:08] VITALS: BP 109/66; PULSE 87
[2020-12-25] MEDS: Prazosin HCL 1 MG CAPSULE 3 MG PO (20:08)
[2020-12-25] MEDS: OLANZapine 10 MG TABLET 20 MG PO (20:09)
[2020-12-25] MEDS: Benztropine Mesylate 1 MG TABLET PO (20:09)
[2020-12-25] MEDS: Mirtazapine 15 MG TABLET PO (20:09)
[2020-12-26 06:00] VITALS: BP 124/68; PULSE 57; RESP 18; TEMP 36.9; O2SAT 96
--- NOTE | 2020-12-26 08:00 | ECG_ITS ---
Test Reason : CK QT Blood Pressure : / mmHG Vent. Rate : 060 BPM Atrial Rate : 060 BPM P-R Int : 166 ms QRS Dur : 080 ms QT Int : 422 ms P-R-T Axes : 022 -15 012 degrees QTc Int : 422 ms Normal sinus rhythm Normal ECG When compared with ECG of 14-DEC-2020 15:50, No significant change was found Referred By: Audrey Giraldo Electronically Signed By:LISA FLORES MD
[2020-12-26 08:03] LABS: MANUAL DIFF FLAG NO
[2020-12-26 08:08] LABS: Basophils Absolute Auto 0.1 X10*3/uL (0.0-0.2); Basophils Percent Auto 0.9 % (0-2); Eosinophils Absolute Auto 0.4 X10*3/uL (0.0-0.4); Eosinophils Percent Auto 7.6 % (0-4); Hematocrit 43.4 % (42-52); Hemoglobin 14.9 g/dl (14.0-18.0); Imm Gran Abs Auto 0.02 X10*3/uL (0.00-0.03); Imm Gran Pct Auto 0.3 % (0.0-0.4); Lymphocytes Absolute Auto 1.8 X10*3/uL (1.2-4.9); Lymphocytes Percent Auto 31.3 % (20-40); Mean Corpuscular HGB Conc 34.3 g/dl (31.0-36.0); Mean Corpuscular Hemoglobin 31.2 pg (27.0-33.0); Mean Corpuscular Volume 90.8 fL (80-98); Mean Platelet Volume 10.5 fL (9.4-12.4); Monocytes Absolute Auto 0.7 X10*3/uL (0.1-1.2); Monocytes Percent Auto 12.1 % (2-11); Neutrophils Absolute Auto 2.8 X10*3/uL (2.0-8.3); Neutrophils Percent Auto 47.8 % (45-73); Platelet Count 212 X10*3/uL (160-400); Red Blood Count 4.78 X10*6/uL (4.60-5.80); Red Cell Distribution Width 12.5 % (11.0-16.0); White Blood Count 5.8 X10*3/uL (4.8-10.8)
[2020-12-26 08:51] LABS: Alanine Aminotransferase 350 U/L (0-40); Albumin Level 3.7 g/dL (3.5-5.0); Alkaline Phosphatase 74 U/L (39-117); Anion Gap 12 (12-20); Aspartate Amino Transferase 243 U/L (5-37); Bilirubin Total 0.5 mg/dL (0.0-1.0); Blood Urea Nitrogen 9 mg/dL (9-16); Calcium 8.8 mg/dL (8.4-10.2); Carbon Dioxide 28 mmol/L (22-29); Chloride 106 mmol/L (96-108); Creatinine Clr Calc Pharmacy 158.6; Estimated Glomerular Filt Rate > 60; Glucose Random 85 mg/dL (60-115); Sodium 142 mmol/L (135-145); Total Protein 6.7 g/dL (6.5-8.0)
[2020-12-26] MEDS: Gabapentin 600 MG TABLET PO (09:34)
[2020-12-26] MEDS: busPIRone HCl 5 MG TABLET 15 MG PO (09:34)
[2020-12-26] MEDS: Benztropine Mesylate 1 MG TABLET PO (09:34)
[2020-12-26] MEDS: Sertraline HCL 100 MG TABLET PO (09:34)
--- NOTE | 2020-12-26 12:48 | PM.PSYDC ---
DS: Providers Provider Date of Service: 12/26/20 Date of admission: 12/14/20 15:38 Date of discharge: 12/26/20 Primary care physician: Julissa Danielle MD Admitting clinician: Audrey Giraldo Attending physician on admission: Rk Dial Attending physician on discharge: Rk Dial Discharging clinician: Audrey Giraldo DS: Diagnosis Discharge Diagnosis (1) Severe recurrent major depressive disorder with psychosis: Status: Acute Problem details: 45 yo male, reporting an increase in depressive sx with active SI, auditory perceptual alterations, stopping all medications, and relapse on substances. Pt is homeless currently. (2) Cocaine abuse: Status: Acute Problem details: States he is using so he can remain awake and safe as he is homeless. (3) Opiate dependence, continuous: Status: Acute Problem details: Suboxone with [facility], [facility]. (4) Alcohol use disorder, severe, dependence: Status: Acute Problem details: Reports drinking to replace medications. DS: Medications Discharge Medications Home Medications: Previous Rx's Medication Instructions Recorded B-complex with vitamin C 1 tab PO DAILY #30 tab 12/26/20 benztropine 1 mg PO BID #60 tab 12/26/20 buprenorphine-naloxone [Suboxone] 1 film SUBLINGUAL BID@0830,1330 5 12/26/20 Days #10 ea buspirone 15 mg PO TID #90 tab 12/26/20 chlorpromazine 25 mg PO BID PRN #30 tab 12/26/20 gabapentin 600 mg PO TID #90 tab 12/26/20 hydroxyzine HCl 25 mg PO BEDTIME PRN #30 tab 12/26/20 mirtazapine 15 mg PO BEDTIME #30 tab 12/26/20 multivitamin,tx-minerals [Vitamins 1 tab PO DAILY #30 tab 12/26/20 and Minerals] olanzapine 20 mg PO BEDTIME #30 tab 12/26/20 prazosin 3 mg PO BEDTIME #15 cap 12/26/20 sertraline 100 mg PO DAILY #30 tab 12/26/20 Discharge Plan Discharge Anticipated Discharge Date/Time: 12/26/20 12:00 Patient Disposition: Home, Self-Care Discharge Diagnosis: Recurrent Major Depression with Psychotic Features Alcohol Use Disorder, Severe Opiate Use Disorder, on maintenance therapy Stimulant Use Disorder, Cocaine Referrals: Therapist: Angelica Borges ([facility]) [Other] - 01/02/21 10:00 am Suboxone Maintenance: Dr. Loreta Felipe ([facility]) [Other] - 12/30/20 4:45 pm Psych Prescriber: Janina Dobbins ([facility]) [Other] - 01/19/21 11:00 am Psych Prescriber: Janina Dobbins ([facility]) [Other] - 02/16/21 11:00 am Dual-Diagnosis Residential: Sury Hines ([facility]) [Other] - 1 Week (You have a bed on Tuesday, 12/29 and must be there at 10 am with all your medications and belongings. ) Dual Diagnosis Residential: [facility] [Other] - 12/29/20 10:00 am Julissa Danielle MD [Physician] - 01/01/21 11:00 am (via phone) Discharge Medications: New prazosin 1 mg Capsule 3 mg PO BEDTIME Qty: 15 RF: 1 benztropine 1 mg Tablet 1 mg PO BID Qty: 60 RF: 0 sertraline 100 mg Tablet 100 mg PO DAILY Qty: 30 RF: 0 olanzapine 10 mg Tablet 20 mg PO BEDTIME Qty: 30 RF: 0 chlorpromazine 25 mg tablet 25 mg PO BID PRN (Reason: psychosis) Qty: 30 RF: 0 buprenorphine-naloxone [Suboxone] 8-2 mg Film 1 film sublingual BID@0830,1330 5 Days Qty: 10 RF: 0 Continued gabapentin 600 mg tablet 600 mg PO TID Qty: 90 RF: 0 mirtazapine 15 mg Tablet 15 mg PO BEDTIME Qty: 30 RF: 0 buspirone 15 mg tablet 15 mg PO TID Qty: 90 RF: 0 Discontinued buprenorphine-naloxone [Suboxone] 8-2 mg film 2 film sublingual DAILY Qty: 14 RF: 0 risperidone 2 mg Tablet 2 mg PO BEDTIME Qty: 1 RF: 0 risperidone 1 mg Tablet 1 mg PO DAILY Qty: 1 RF: 0 prazosin 2 mg capsule 1 cap PO BEDTIME RF: 0 venlafaxine 37.5 mg capsule,extended release 24hr 75 mg PO QAM RF: 0 Discharge Orders: Discharge Order (Routine); Ordered 12/26/20 Ordered By: Audrey Giraldo Diet: advance to usual diet Activity on Discharge: As tolerated Stand Alone Forms: Patient Portal Discharge page, Community Support Print Language: Amharic Care Plan Goals: Stabilization of mood and thought process Sobriety Health Concerns: Depression with psychosis Use of alcohol, cocaine and opiates Hepatitis C Plan of Treatment: Attend all appointments Take medications as directed Follow up with addictions treatment Continue with Suboxone treatment. Please consult your PCP for a referral for treatment of Hepatitis C. There are effective treatments avaialble for you, however, you will need to have a stable period of sobriety as the medications used are metabolized in your hepatic system (liver). Call and or return as needed Assessment: Benito completed medication changes, mainly a return to Sertraline at his request as his symptoms of depression and more completely managed with this agent. Thorzaine was re-trialed with excess sedation, so it is available as a prn and Olanzapine is added as the main mood/thought stabilizer. Patient Instructions: Sertraline (By mouth), Olanzapine (By mouth), Depression (ED) Discharge Date/Time: 12/26/20 11:15 Mental Status Exam Mental Status Exam Patient Appearance: Appropriate Patient Orientation: Person, Place, Time and Situation Level of Consciousness: Awake and Alert Patient Behavior: Appropriate and Talkative Mood Description: Constricted Affect Description: Constricted Patient Cognition Impaired: No Ability to Follow Directions: Good Speech Pattern: Spontaneous Speech Memory Description: Intact Hallucinations: None Delusions: Not Present Thought Process: Intact Thought Content: positive for Intact Judgement: Good Data Data Completed and Pending Completed studies during hospitalization [Text1]: 12/26/20 12/26/20 07:40 07:40 WBC 5.8 RBC 4.78 Hgb 14.9 Hct 43.4 MCV 90.8 MCH 31.2 MCHC 34.3 RDW 12.5 Plt Count 212 MPV 10.5 Immature Gran % (Auto) 0.3 Neut % (Auto) 47.8 Lymph % (Auto) 31.3 [place] % (Auto) 12.1 H Eos % (Auto) 7.6 H Baso % (Auto) 0.9 Lymph # (Auto) 1.8 [place] # (Auto) 0.7 Eos # (Auto) 0.4 Baso # (Auto) 0.1 Abs Immat Gran (auto) 0.02 Absolute Neuts (auto) 2.8 Absolute Nucleated RBC 0.000 Nucleated RBC % (auto) 0.0 Sodium 142 Potassium 4.0 Chloride 106 Carbon Dioxide 28 Anion Gap 12 BUN 9 Creatinine 0.68 Estim Creat Clear Calc 158.6 Estimated GFR > 60 Random Glucose 85 Calcium 8.8 D Total Bilirubin 0.5 AST 243 H ALT 350 H Alkaline Phosphatase 74 Total Protein 6.7 Albumin 3.7 DS: Summary Hospital Course Hospital Course: Pt was admitted on a conditional voluntary. He reported medication changes made during a recent admission had not been helpful and he requested to return to his previous regime of Sertraline and Thorazine. Sertraline was re-titrated without adverse effect. Thorazine was re-titrated, however pt was sedate and did not receive the benefit he had reported in the past. As a result, Thorazine will be used at 25 mg twice daily as needed. Benztropine was titrated, Olanzapine was initiated and titrated and Prazosin was titrated. Risperdal and Venlafaxine were discontinued. Pt voiced concern about possibly having Hepatitis C. Testing indicated this was positive and liver function tests elevated. Pt referred to PCP for further managment. On the unit, pt was quiet, slept a great deal and did not have interest in transferring to [facility]. Pt did agree to transfer to [facility] for further treatment. He will wait for an available bed with family and follow up with PCP Dr. Danielle next week regarding elevated LFT's, will continue with Suboxone. He will have psychiatric follow up for therapy and medications with [facility]. Time spent discussing smoking cessation with patient: 3 to 10 minutes Status at Discharge Cognitive/behavioral status at discharge: alert, oriented, denies SI, HI. no evidence of psychotic thought process. Affect and mood are constricted Functional status at discharge: independent ambulation Overall status at discharge: patient is back to baseline Time Spent with Patient Time attestation: Total time spent providing and/or coordinating discharge services: 35 Time spent: Greater than 30 minutes
== END 2020-12-26 11:15 | disposition home or self-care (01) | DRG 751 ==
LOC: HO.ED 12-13 17:03 → HO.PM5 12-14 15:47
PROVIDERS: Physician Assistant; Psychiatry & Neurology Psychiatry; Admitting Provider Psychiatry & Neurology Psychiatry; Emergency Provider Internal Medicine; Visit Provider Clinical Nurse Specialist Psychiatric/Mental Health, Adult
DX: F33.3 Major depressive disorder, recurrent, severe with psychotic symptoms (principal); F11.20 Opioid dependence, uncomplicated; F14.10 Cocaine abuse, uncomplicated; F10.20 Alcohol dependence, uncomplicated; Z20.822 Contact with and (suspected) exposure to COVID-19; Z91.14 Patient's other noncompliance with medication regimen; Z91.5 Personal history of self-harm; Z59.0 Homelessness; Z88.0 Allergy status to penicillin; Z88.6 Allergy status to analgesic agent; Z79.899 Other long term (current) drug therapy
CPT/HCPCS: 36415; 80048; 80053; 80061; 80076; 80178; 80307; 80320; 82248; 82607; 82746; 83036; 83735; 84439; 84443; 85025; 86704; 86706; 86709; 86803; 87340; 87635; 93005; 99285

== ENCOUNTER 2020-12-28 10:30 | Emergency (ER) | payer MEDICAID, SELFPAY ==
--- NOTE | ~2020-12-28 | US_ITS ---
EXAMINATION: US ABDOMEN LIMITED CLINICAL INFORMATION: Abnormal liver function tests. Hepatitis C. History of alcohol use. COMPARISON: Previous abdominal ultrasound and CT of the abdomen and pelvis May 2019 TECHNIQUE: Real-time imaging of the right upper quadrant abdominal viscera. FINDINGS: PANCREAS: Not well visualized due to bowel gas LIVER: Liver echotexture is slightly increased. The liver is normal in size and contour. No focal hepatic lesion. There is no intrahepatic biliary duct dilatation seen. GALLBLADDER: The patient has recently. The gallbladder is contracted. No gallstones are seen. COMMON BILE DUCT: Normal in caliber measuring 0.7 cm in diameter. RIGHT KIDNEY: Normal. No hydronephrosis. No renal calculi or focal parenchymal lesions. The kidney measures 12.5 cm in maximum dimension. FREE FLUID: None. US/US abdomen limited IMPRESSION: Slightly echogenic liver. No evidence of cirrhosis, focal liver lesion or ascites. Contracted gallbladder. Nonvisualization of the pancreas.
--- NOTE | ~2020-12-28 | XR_ITS ---
EXAMINATION: XR CHEST CLINICAL INFORMATION: Edema COMPARISON: None TECHNIQUE: 2 views of the chest were obtained. FINDINGS: No significant abnormality is noted involving the heart, lungs, mediastinum, bony thorax or soft tissues. XR/XR chest 2V IMPRESSION: Unremarkable examination.
[2020-12-28 11:30] VITALS: BP 116/54; PULSE 107; RESP 18; TEMP 37.3; O2SAT 98; BMI 31.5
--- NOTE | 2020-12-28 11:54 | ECG_ITS ---
Test Reason : OD Blood Pressure : / mmHG Vent. Rate : 099 BPM Atrial Rate : 099 BPM P-R Int : 162 ms QRS Dur : 078 ms QT Int : 352 ms P-R-T Axes : 050 -11 021 degrees QTc Int : 451 ms Normal sinus rhythm Normal ECG When compared with ECG of 26-DEC-2020 07:10, Vent. rate has increased BY 39 BPM Referred By: Generic ED Physician Electronically Signed By:ALFREDO POLLOCK
--- NOTE | 2020-12-28 12:48 | ED_ITS ---
HPI - Psych General Chief Complaint: Psychiatric Symptoms <AAMIR Funes Last Filed: 12/28/20 20:32> Stated Complaint: crisis - med overdose <AAMIR Funes Last Filed: 12/28/20 20:32> Time Seen by Provider: 12/28/20 11:03 <AAMIR Funes Last Filed: 12/28/20 20:32> Source: patient <AAMIR Funes Last Filed: 12/28/20 20:32> Mode of arrival: ambulatory <AAMIR Funes Last Filed: 12/28/20 20:32> Limitations: no limitations <AAMIR Funes Last Filed: 12/28/20 20:32> History of Present Illness HPI Narrative: Patient brought to the ED for suicide attempt on drug overdose. Patient took 2 tabs of risperidone. Seventeenth was another panting for any pills of prazosin and 6 tabs of oxycodone. Patient also took gabapentin. Patient states he took been between 5am and 07:00am. Patient states he vomited soon after a lot of pills came out. Patient states his attempt was intentional to kill himself due to dispute with uncle. <AAMIR Funes Last Filed: 12/28/20 20:32> Related Data Home Medications: Previous Rx's Medication Instructions Recorded benztropine 1 mg PO BID #60 tab 12/26/20 buprenorphine-naloxone [Suboxone] 1 film SUBLINGUAL BID@0830,1330 5 12/26/20 Days #10 ea buspirone 15 mg PO TID #90 tab 12/26/20 chlorpromazine 25 mg PO BID PRN #30 tab 12/26/20 gabapentin 600 mg PO TID #90 tab 12/26/20 mirtazapine 15 mg PO BEDTIME #30 tab 12/26/20 olanzapine 20 mg PO BEDTIME #30 tab 12/26/20 prazosin 3 mg PO BEDTIME #15 cap 12/26/20 sertraline 100 mg PO DAILY #30 tab 12/26/20 <AAMIR Funes Last Filed: 12/28/20 20:32> Allergies/Adverse Reactions: Allergies Allergy/AdvReac Type Severity Reaction Status Date / Time acetaminophen [From TYLENOL] Allergy Mild STOMACH Verified 12/28/20 11:30 UPSET amoxicillin [AMOXICILLIN] Allergy Unknown SWELLING Verified 12/28/20 11:30 clavulanic acid Allergy Unknown Swelling Verified 12/28/20 11:30 [From AUGMENTIN] <AAMIR Funes Last Filed: 12/28/20 20:32> Review of Systems Review of Systems: Yes all other systems are reviewed and are negative <AAMIR Funes - Last Filed: 12/28/20 20:32> Constitutional: Constitutional: Reports as per HPI and Reports no additional constitutional complaints <AAMIR Funes - Last Filed: 12/28/20 20:32> Eyes: Eyes: Reports as per HPI and Reports no additional eye complaints <AAMIR Funes Last Filed: 12/28/20 20:32> ENT: Reports system reviewed and no additional complaints, except as documented and Reports as per HPI <AAMIR Funes Last Filed: 12/28/20 20:32> Cardiovascular: Cardiovascular: Reports as per HPI and Reports no additional cardiovascular complaints <AAMIR Funes Last Filed: 12/28/20 20:32> Respiratory: Respiratory: Reports as per HPI and Reports no additional respiratory complaints <AAMIR Funes Last Filed: 12/28/20 20:32> Gastrointestinal: Gastrointestinal: Reports as per HPI and Reports no additional gastrointestinal complaints <AAMIR Funes Last Filed: 12/28/20 20:32> Genitourinary: Genitourinary: Reports no additional male genitourinary complaints and Reports as per HPI <AAMIR Funes Last Filed: 12/28/20 20:32> Musculoskeletal: Musculoskeletal: Reports no additional musculoskeletal complaints and Reports as per HPI <AAMIR Funes Last Filed: 12/28/20 20:32> Neurologic: Reports system reviewed and no additional complaints, except as documented and Reports as per HPI <AAMIR Funes Last Filed: 12/28/20 20:32> Psychiatric: Psychiatric: Reports no additional psychiatric complaints, Reports as per HPI and Reports suicidal ideation <AAMIR Funes Last Filed: 12/28/20 20:32> Comments: Suicide attempt/suicide ideation <AAMIR Funes Last Filed: 12/28/20 20:32> [facility] Past Medical History Medical History: Medical History (Updated 12/28/20 @ 20:29 by AAMIR Funes) Alcohol abuse Alcohol use disorder, severe, dependence Anxiety PTSD (post-traumatic stress disorder) Substance abuse <AAMIR Funes - Last Filed: 12/28/20 20:32> Social History Social History: Social History Household Members: None Housing: Homeless Alcohol intake: current Alcohol intake frequency: 0-2 drinks per day Alcohol type: hard liquor Smoking Status: Never smoker Second Hand Smoke Exposure: No Use of substances other than those prescribed or required for medical reasons: Yes Substance Use Type: Crack/Cocaine and Painkillers Substance Use Frequency: Chronic Longstanding Advance Directives: No Advance Directives Information Provided: No service: No Sexual orientation: Straight/Heterosexual <AAMIR Funes - Last Filed: 12/28/20 20:32> Physical Exam Vital Signs: Vital Signs: Last Vital Signs Temp 98.2 F 12/29/20 00:00 Pulse 85 12/29/20 00:00 Resp 16 12/29/20 00:00 BP 128/71 12/29/20 00:00 Pulse Ox 98 12/29/20 00:00 Body Mass Index 31.5 <AAMIR Funes - Last Filed: 12/28/20 20:32> Vital Signs: Last Vital Signs Temp 98.2 F 12/29/20 00:00 Pulse 85 12/29/20 00:00 Resp 16 12/29/20 00:00 BP 128/71 12/29/20 00:00 Pulse Ox 98 12/29/20 00:00 Body Mass Index 31.5 <Mike Sharma MD - Last Filed: 12/29/20 04:25> Const: General: cooperative, healthy appearing, comfortable, no acute distress, well developed, alert and awake; No Physically active <AAMIR Funes - Last Filed: 12/28/20 20:32> Orientation/consciousness: patient oriented x3 <AAMIR Funes - Last Fi led: 12/28/20 20:32> HENMT: Head: Yes normal to inspection, Yes No palpable skull fracture present, Yes normocephalic, Yes atraumatic and Yes abrasion <AAMIR Funes - Last Filed: 12/28/20 20:32> Eyes: General: appearance normal, both eyes and all related structures <AAMIR Funes Jimmy Last Filed: 12/28/20 20:32> Neck: Neck: Yes normal visual inspection, Yes full ROM, Yes no l ymphadenopathy, Yes no meningeal signs, Yes trachea midline, Yes supple and No tender <AAMIR Funes Last Filed: 12/28/20 20:32> Chest: Chest palpation & inspection: normal inspection of the chest and normal palpation of entire chest wall <AAMIR Funes Last Filed: 12/28/20 20:32> Resp: Effort & Inspection: normal respiratory effort and able to speak in complete sentences <AAMIR Funes Last Filed: 12/28/20 20:32> Auscultation: clear to auscultation bilaterally <AAMIR Funes Last Filed: 12/28/20 20:32> Cardio: Jugular venous distension: no JVD <AAMIR Funes Last Filed: 12/28/20 20:32> Heart sounds: S1 normal heart sound present and S2 normal heart sound present <AAMIR Funes Last Filed: 12/28/20 20:32> GI: Inspection: Yes normal to inspection and No abdominal wall ecchymosis <AAMIR Funes Last Filed: 12/28/20 20:32> Palpation (GI): Soft to palpation, not firm, nontender, no guarding and not rigid <AAMIR Funes Jimmy Last Filed: 12/28/20 20:32> : General: No CVA tenderness and Yes no CVA tenderness <AAMIR Funes Last Filed: 12/28/20 20:32> Back/Spine/Pelvis: Back: no CVA tenderness, No CVA tenderness and No back tenderness <AAMIR Funes Jimmy Last Filed: 12/28/20 20:32> Skin: General skin exam: no rashes or lesions noted and elasticity normal <AAMIR Funes Jimmy Last Filed: 12/28/20 20:32> Neuro: General: patient oriented x3, no meningeal signs and CN's II-XI intact bilaterally <AAMIR Funes - Last Filed: 12/28/20 20:32> Cranial nerves: Yes CN's II-XII intact bilaterally <AAMIR Funes - Last Filed: 12/28/20 20:32> Extrem: General: Yes normal to inspection and Yes full ROM <AAMIR Funes - Last Filed: 12/28/20 20:32> Psych: Appearance: grossly normal, well kempt and not disheveled <AAMIR Funes - Last Filed: 12/28/20 20:32> Course Course Course Narrative: Patient will have labs, U tox sent, Tylenol, and salicylate. Patient given fluids. His control will be called. <AAMIR Funes Last Filed: 12/28/20 20:32> Reevaluation(s) Reevaluation #1: Patient have lab drums and given IV fluids. Nurse Linda spoke with i son control who recommended optimizing patient magnesium to 2 and potassium to fall. EKGs every 4 hours to evaluate for QTC. <AAMIR Funes Last Filed: 12/28/20 20:32> Reevaluation #2: I reviewed patient notes which showed that he has recent diagnosis of hepatitis C ( as per psychiatry discharge notes) that requires treatment and history of alcohol abuse which would explained elevated liver enzyme. Patient's liver enzyme in 2019 were over 1000. Patient does not have any abdominal tenderness or pain on palpation. Not suspecting gallstones. No imaging indicated Patient presenttly not any distress. <AAMIR Funes Last Filed: 12/28/20 20:32> Reevaluation #3: Patient cleared by poison Control. They were informed of patient's history, physical exam, labs, and diagnostics. Patient will have BHN e valuation. Patient vital signs stable. <AAMIR Funes Last Filed: 0 12/28/20 20:32> MDM - Psych MDM Narrative Medical decision making narrative: Depression. Suicidal time <AAMIR Funes Last Filed: 12/28/20 20:32> Lab Data Result diagrams: : 12/28/20 13:49 12/28/20 16:55 <AAMIR Funes Last Filed: 12/28/20 20:32> Labs: Lab Results 12/28/20 12/28/20 12/28/20 Range/Units 13:49 13:49 13:49 WBC 13.1 H (4.8-10.8) X10*3/uL RBC 3.86 L (4.60-5.80) X10*6/uL Hgb 12.2 L (14.0-18.0) g/dl Hct 34.8 L (42-52) % MCV 90.2 (80-98) fL MCH 31.6 (27.0-33.0) pg MCHC 35.1 (31.0-36.0) g/dl RDW 12.9 (11.0-16.0) % Plt Count 155 L D (160-400) X10*3/uL MPV 10.3 (9.4-12.4) fL Immature Gran % (Auto) 0.3 (0.0-0.4) % Neut % (Auto) 81.9 H (45-73) % Lymph % (Auto) 8.8 L (20-40) % [place] % (Auto) 8.8 (2-11) % Eos % (Auto) 0.0 (0-4) % Baso % (Auto) 0.2 (0-2) % Lymph # (Auto) 1.2 (1.2-4.9) X10*3/uL [place] # (Auto) 1.2 (0.1-1.2) X10*3/uL Eos # (Auto) 0.0 (0.0-0.4) X10*3/uL Baso # (Auto) 0.0 (0.0-0.2) X10*3/uL Abs Immat Gran (auto) 0.04 H (0.00-0.03) X10*3/uL Absolute Neuts (auto) 10.8 H (2.0-8.3) X10*3/uL Absolute Nucleated RBC 0.000 (0.0-0.012) X10*3/uL Nucleated RBC % (auto) 0.0 (0.0-0.2) /100WBC PT 13.8 H (10.8-13.0) SEC INR 1.2 H (0.9-1.1) APTT 30.2 (24.1-38.0) SEC Sodium 130 L (135-145) mmol/L Potassium 4.4 (3.3-5.1) mmol/L Chloride 94 L (96-108) mmol/L Carbon Dioxide 22 (22-29) mmol/L Anion Gap 18 (12-20) BUN 32 H D (9-16) mg/dL Creatinine 0.88 (0.5-1.4) mg/dL Estim Creat Clear Calc 122.8 Estimated GFR > 60 Random Glucose 166 H D (60-115) mg/dL Calcium 8.4 (8.4-10.2) mg/dL Magnesium 1.9 (1.6-2.6) mg/dL Total Bilirubin 2.2 H (0.0-1.0) mg/dL Direct Bilirubin 1.1 H (0.0-0.5) mg/dL AST 1433 H (5-37) U/L ALT 551 H (0-40) U/L Alkaline Phosphatase 55 D (39-117) U/L Total Protein 6.3 L (6.5-8.0) g/dL Albumin 3.9 (3.5-5.0) g/dL Urine Color Urine Appearance Urine pH (5.0-8.0) Ur Specific [place] (1.005-1.025) Urine Protein (NEG-TRACE) MG/DL Urine Glucose (UA) (NEG) MG/DL Urine Ketones (NEG) MG/DL Urine Blood (NEG) Urine Nitrite (NEG) Ur Leukocyte Esterase (NEG) Urine RBC (0) /HPF Urine WBC (0-4) /HPF Ur Squamous Epith Cells /LPF Urine Bacteria /LPF Hyaline Casts /LPF Salicylates < 5.0 L (15-30) mg/dL Urine Opiates Screen (Not Detect) Acetaminophen < 1 (<30) mcg/mL Ur Barbiturates Screen (Not Detect) Ur Phencyclidine Scrn (Not Detect) Ur Amphetamines Screen (Not Detect) U Benzodiazepines Scrn (Not Detect) Urine Cocaine Screen (Not Detect) U Marijuana (THC) Screen (Not Detect) Ethyl Alcohol mg/dL 12/28/20 12/28/20 12/28/20 Range/Units 13:49 14:04 14:04 WBC (4.8-10.8) X10*3/uL RBC (4.60-5.80) X10*6/uL Hgb (14.0-18.0) g/dl Hct (42-52) % MCV (80-98) fL MCH (27.0-33.0) pg MCHC (31.0-36.0) g/dl RDW (11.0-16.0) % Plt Count (160-400) X10*3/uL MPV (9.4-12.4) fL Immature Gran % (Auto) (0.0-0.4) % Neut % (Auto) (45-73) % Lymph % (Auto) (20-40) % [place] % (Auto) (2-11) % Eos % (Auto) (0-4) % Baso % (Auto) (0-2) % Lymph # (Auto) (1.2-4.9) X10*3/uL [place] # (Auto) (0.1-1.2) X10*3/uL Eos # (Auto) (0.0-0.4) X10*3/uL Baso # (Auto) (0.0-0.2) X10*3/uL Abs Immat Gran (auto) (0.00-0.03) X10*3/uL Absolute Neuts (auto) (2.0-8.3) X10*3/uL Absolute Nucleated RBC (0.0-0.012) X10*3/uL Nucleated RBC % (auto) (0.0-0.2) /100WBC PT (10.8-13.0) SEC INR (0.9-1.1) APTT (24.1-38.0) SEC Sodium (135-145) mmol/L Potassium (3.3-5.1) mmol/L Chloride (96-108) mmol/L Carbon Dioxide (22-29) mmol/L Anion Gap (12-20) BUN (9-16) mg/dL Creatinine (0.5-1.4) mg/dL Estim Creat Clear Calc Estimated GFR Random Glucose (60-115) mg/dL Calcium (8.4-10.2) mg/dL Magnesium (1.6-2.6) mg/dL Total Bilirubin (0.0-1.0) mg/dL Direct Bilirubin (0.0-0.5) mg/dL AST (5-37) U/L ALT (0-40) U/L Alkaline Phosphatase (39-117) U/L Total Protein (6.5-8.0) g/dL Albumin (3.5-5.0) g/dL Urine Color YELLOW Urine Appearance HAZY Urine pH 5.5 (5.0-8.0) Ur Specific [place] >= 1.030 H (1.005-1.025) Urine Protein TRACE (NEG-TRACE) MG/DL Urine Glucose (UA) NEG (NEG) MG/DL Urine Ketones 40 (NEG) MG/DL Urine Blood 3+ H (NEG) Urine Nitrite NEG (NEG) Ur Leukocyte Esterase NEG (NEG) Urine RBC 0-2 (0) /HPF Urine WBC 0 (0-4) /HPF Ur Squamous Epith Cells NONE /LPF Urine Bacteria TRACE /LPF Hyaline Casts 0-2 /LPF Salicylates (15-30) mg/dL Urine Opiates Screen POSITIVE H (Not Detect) Acetaminophen (<30) mcg/mL Ur Barbiturates Screen Not Detected (Not Detect) Ur Phencyclidine Scrn Not Detected (Not Detect) Ur Amphetamines Screen Not Detected (Not Detect) U Benzodiazepines Scrn Not Detected (Not Detect) Urine Cocaine Screen POSITIVE H (Not Detect) U Marijuana (THC) Screen Not Detected (Not Detect) Ethyl Alcohol < 10 mg/dL 12/28/20 12/28/20 Range/Units 16:55 16:55 WBC (4.8-10.8) X10*3/uL RBC (4.60-5.80) X10*6/uL Hgb (14.0-18.0) g/dl Hct (42-52) % MCV (80-98) fL MCH (27.0-33.0) pg MCHC (31.0-36.0) g/dl RDW (11.0-16.0) % Plt Count (160-400) X10*3/uL MPV (9.4-12.4) fL Immature Gran % (Auto) (0.0-0.4) % Neut % (Auto) (45-73) % Lymph % (Auto) (20-40) % [place] % (Auto) (2-11) % Eos % (Auto) (0-4) % Baso % (Auto) (0-2) % Lymph # (Auto) (1.2-4.9) X10*3/uL [place] # (Auto) (0.1-1.2) X10*3/uL Eos # (Auto) (0.0-0.4) X10*3/uL Baso # (Auto) (0.0-0.2) X10*3/uL Abs Immat Gran (auto) (0.00-0.03) X10*3/uL Absolute Neuts (auto) (2.0-8.3) X10*3/uL Absolute Nucleated RBC (0.0-0.012) X10*3/uL Nucleated RBC % (auto) (0.0-0.2) /100WBC PT 13.4 H (10.8-13.0) SEC INR 1.1 (0.9-1.1) APTT 29.8 (24.1-38.0) SEC Sodium 133 L (135-145) mmol/L Potassium 4.2 (3.3-5.1) mmol/L Chloride 97 (96-108) mmol/L Carbon Dioxide 25 (22-29) mmol/L Anion Gap 15 (12-20) BUN 28 H (9-16) mg/dL Creatinine 0.76 (0.5-1.4) mg/dL Estim Creat Clear Calc 142.2 Estimated GFR > 60 Random Glucose 111 (60-115) mg/dL Calcium 8.3 L (8.4-10.2) mg/dL Magnesium (1.6-2.6) mg/dL Total Bilirubin 1.8 H (0.0-1.0) mg/dL Direct Bilirubin (0.0-0.5) mg/dL AST 1296 H (5-37) U/L ALT 524 H (0-40) U/L Alkaline Phosphatase 57 (39-117) U/L Total Protein 6.3 L (6.5-8.0) g/dL Albumin 3.8 (3.5-5.0) g/dL Urine Color Urine Appearance Urine pH (5.0-8.0) Ur Specific [place] (1.005-1.025) Urine Protein (NEG-TRACE) MG/DL Urine Glucose (UA) (NEG) MG/DL Urine Ketones (NEG) MG/DL Urine Blood (NEG) Urine Nitrite (NEG) Ur Leukocyte Esterase (NEG) Urine RBC (0) /HPF Urine WBC (0-4) /HPF Ur Squamous Epith Cells /LPF Urine Bacteria /LPF Hyaline Casts /LPF Salicylates < 5.0 L (15-30) mg/dL Urine Opiates Screen (Not Detect) Acetaminophen < 1 (<30) mcg/mL Ur Barbiturates Screen (Not Detect) Ur Phencyclidine Scrn (Not Detect) Ur Amphetamines Screen (Not Detect) U Benzodiazepines Scrn (Not Detect) Urine Cocaine Screen (Not Detect) U Marijuana (THC) Screen (Not Detect) Ethyl Alcohol mg/dL <AAMIR Funes - Last Filed: 12/28/20 20:32> Lab Results 12/28/20 12/28/20 12/28/20 Range/Units 13:49 13:49 13:49 WBC 13.1 H (4.8-10.8) X10*3/uL RBC 3.86 L (4.60-5.80) X10*6/uL Hgb 12.2 L (14.0-18.0) g/dl Hct 34.8 L (42-52) % MCV 90.2 (80-98) fL MCH 31.6 (27.0-33.0) pg MCHC 35.1 (31.0-36.0) g/dl RDW 12.9 (11.0-16.0) % Plt Count 155 L D (160-400) X10*3/uL MPV 10.3 (9.4-12.4) fL Immature Gran % (Auto) 0.3 (0.0-0.4) % Neut % (Auto) 81.9 H (45-73) % Lymph % (Auto) 8.8 L (20-40) % [place] % (Auto) 8.8 (2-11) % Eos % (Auto) 0.0 (0-4) % Baso % (Auto) 0.2 (0-2) % Lymph # (Auto) 1.2 (1.2-4.9) X10*3/uL [place] # (Auto) 1.2 (0.1-1.2) X10*3/uL Eos # (Auto) 0.0 (0.0-0.4) X10*3/uL Baso # (Auto) 0.0 (0.0-0.2) X10*3/uL Abs Immat Gran (auto) 0.04 H (0.00-0.03) X10*3/uL Absolute Neuts (auto) 10.8 H (2.0-8.3) X10*3/uL Absolute Nucleated RBC 0.000 (0.0-0.012) X10*3/uL Nucleated RBC % (auto) 0.0 (0.0-0.2) /100WBC PT 13.8 H (10.8-13.0) SEC INR 1.2 H (0.9-1.1) APTT 30.2 (24.1-38.0) SEC Sodium 130 L (135-145) mmol/L Potassium 4.4 (3.3-5.1) mmol/L Chloride 94 L (96-108) mmol/L Carbon Dioxide 22 (22-29) mmol/L Anion Gap 18 (12-20) BUN 32 H D (9-16) mg/dL Creatinine 0.88 (0.5-1.4) mg/dL Estim Creat Clear Calc 122.8 Estimated GFR > 60 Random Glucose 166 H D (60-115) mg/dL Calcium 8.4 (8.4-10.2) mg/dL Magnesium 1.9 (1.6-2.6) mg/dL Total Bilirubin 2.2 H (0.0-1.0) mg/dL Direct Bilirubin 1.1 H (0.0-0.5) mg/dL AST 1433 H (5-37) U/L ALT 551 H (0-40) U/L Alkaline Phosphatase 55 D (39-117) U/L Total Protein 6.3 L (6.5-8.0) g/dL Albumin 3.9 (3.5-5.0) g/dL Urine Color Urine Appearance Urine pH (5.0-8.0) Ur Specific [place] (1.005-1.025) Urine Protein (NEG-TRACE) MG/DL Urine Glucose (UA) (NEG) MG/DL Urine Ketones (NEG) MG/DL Urine Blood (NEG) Urine Nitrite (NEG) Ur Leukocyte Esterase (NEG) Urine RBC (0) /HPF Urine WBC (0-4) /HPF Ur Squamous Epith Cells /LPF Urine Bacteria /LPF Hyaline Casts /LPF Salicylates < 5.0 L (15-30) mg/dL Urine Opiates Screen (Not Detect) Acetaminophen < 1 (<30) mcg/mL Ur Barbiturates Screen (Not Detect) Ur Phencyclidine Scrn (Not Detect) Ur Amphetamines Screen (Not Detect) U Benzodiazepines Scrn (Not Detect) Urine Cocaine Screen (Not Detect) U Marijuana (THC) Screen (Not Detect) Ethyl Alcohol mg/dL 12/28/20 12/28/20 12/28/20 Range/Units 13:49 14:04 14:04 WBC (4.8-10.8) X10*3/uL RBC (4.60-5.80) X10*6/uL Hgb (14.0-18.0) g/dl Hct (42-52) % MCV (80-98) fL MCH (27.0-33.0) pg MCHC (31.0-36.0) g/dl RDW (11.0-16.0) % Plt Count (160-400) X10*3/uL MPV (9.4-12.4) fL Immature Gran % (Auto) (0.0-0.4) % Neut % (Auto) (45-73) % Lymph % (Auto) (20-40) % [place] % (Auto) (2-11) % Eos % (Auto) (0-4) % Baso % (Auto) (0-2) % Lymph # (Auto) (1.2-4.9) X10*3/uL [place] # (Auto) (0.1-1.2) X10*3/uL Eos # (Auto) (0.0-0.4) X10*3/uL Baso # (Auto) (0.0-0.2) X10*3/uL Abs Immat Gran (auto) (0.00-0.03) X10*3/uL Absolute Neuts (auto) (2.0-8.3) X10*3/uL Absolute Nucleated RBC (0.0-0.012) X10*3/uL Nucleated RBC % (auto) (0.0-0.2) /100WBC PT (10.8-13.0) SEC INR (0.9-1.1) APTT (24.1-38.0) SEC Sodium (135-145) mmol/L Potassium (3.3-5.1) mmol/L Chloride (96-108) mmol/L Carbon Dioxide (22-29) mmol/L Anion Gap (12-20) BUN (9-16) mg/dL Creatinine (0.5-1.4) mg/dL Estim Creat Clear Calc Estimated GFR Random Glucose (60-115) mg/dL Calcium (8.4-10.2) mg/dL Magnesium (1.6-2.6) mg/dL Total Bilirubin (0.0-1.0) mg/dL Direct Bilirubin (0.0-0.5) mg/dL AST (5-37) U/L ALT (0-40) U/L Alkaline Phosphatase (39-117) U/L Total Protein (6.5-8.0) g/dL Albumin (3.5-5.0) g/dL Urine Color YELLOW Urine Appearance HAZY Urine pH 5.5 (5.0-8.0) Ur Specific [place] >= 1.030 H (1.005-1.025) Urine Protein TRACE (NEG-TRACE) MG/DL Urine Glucose (UA) NEG (NEG) MG/DL Urine Ketones 40 (NEG) MG/DL Urine Blood 3+ H (NEG) Urine Nitrite NEG (NEG) Ur Leukocyte Esterase NEG (NEG) Urine RBC 0-2 (0) /HPF Urine WBC 0 (0-4) /HPF Ur Squamous Epith Cells NONE /LPF Urine Bacteria TRACE /LPF Hyaline Casts 0-2 /LPF Salicylates (15-30) mg/dL Urine Opiates Screen POSITIVE H (Not Detect) Acetaminophen (<30) mcg/mL Ur Barbiturates Screen Not Detected (Not Detect) Ur Phencyclidine Scrn Not Detected (Not Detect) Ur Amphetamines Screen Not Detected (Not Detect) U Benzodiazepines Scrn Not Detected (Not Detect) Urine Cocaine Screen POSITIVE H (Not Detect) U Marijuana (THC) Screen Not Detected (Not Detect) Ethyl Alcohol < 10 mg/dL 12/28/20 12/28/20 Range/Units 16:55 16:55 WBC (4.8-10.8) X10*3/uL RBC (4.60-5.80) X10*6/uL Hgb (14.0-18.0) g/dl Hct (42-52) % MCV (80-98) fL MCH (27.0-33.0) pg MCHC (31.0-36.0) g/dl RDW (11.0-16.0) % Plt Count (160-400) X10*3/uL MPV (9.4-12.4) fL Immature Gran % (Auto) (0.0-0.4) % Neut % (Auto) (45-73) % Lymph % (Auto) (20-40) % [place] % (Auto) (2-11) % Eos % (Auto) (0-4) % Baso % (Auto) (0-2) % Lymph # (Auto) (1.2-4.9) X10*3/uL [place] # (Auto) (0.1-1.2) X10*3/uL Eos # (Auto) (0.0-0.4) X10*3/uL Baso # (Auto) (0.0-0.2) X10*3/uL Abs Immat Gran (auto) (0.00-0.03) X10*3/uL Absolute Neuts (auto) (2.0-8.3) X10*3/uL Absolute Nucleated RBC (0.0-0.012) X10*3/uL Nucleated RBC % (auto) (0.0-0.2) /100WBC PT 13.4 H (10.8-13.0) SEC INR 1.1 (0.9-1.1) APTT 29.8 (24.1-38.0) SEC Sodium 133 L (135-145) mmol/L Potassium 4.2 (3.3-5.1) mmol/L Chloride 97 (96-108) mmol/L Carbon Dioxide 25 (22-29) mmol/L Anion Gap 15 (12-20) BUN 28 H (9-16) mg/dL Creatinine 0.76 (0.5-1.4) mg/dL Estim Creat Clear Calc 142.2 Estimated GFR > 60 Random Glucose 111 (60-115) mg/dL Calcium 8.3 L (8.4-10.2) mg/dL Magnesium (1.6-2.6) mg/dL Total Bilirubin 1.8 H (0.0-1.0) mg/dL Direct Bilirubin (0.0-0.5) mg/dL AST 1296 H (5-37) U/L ALT 524 H (0-40) U/L Alkaline Phosphatase 57 (39-117) U/L Total Protein 6.3 L (6.5-8.0) g/dL Albumin 3.8 (3.5-5.0) g/dL Urine Color Urine Appearance Urine pH (5.0-8.0) Ur Specific [place] (1.005-1.025) Urine Protein (NEG-TRACE) MG/DL Urine Glucose (UA) (NEG) MG/DL Urine Ketones (NEG) MG/DL Urine Blood (NEG) Urine Nitrite (NEG) Ur Leukocyte Esterase (NEG) Urine RBC (0) /HPF Urine WBC (0-4) /HPF Ur Squamous Epith Cells /LPF Urine Bacteria /LPF Hyaline Casts /LPF Salicylates < 5.0 L (15-30) mg/dL Urine Opiates Screen (Not Detect) Acetaminophen < 1 (<30) mcg/mL Ur Barbiturates Screen (Not Detect) Ur Phencyclidine Scrn (Not Detect) Ur Amphetamines Screen (Not Detect) U Benzodiazepines Scrn (Not Detect) Urine Cocaine Screen (Not Detect) U Marijuana (THC) Screen (Not Detect) Ethyl Alcohol mg/dL <Mike Sharma MD - Last Filed: 12/29/20 04:25> ECG Data Interpretation: EKG#1: Normal sinus rhythm. Ventricular 99. MA interval 162. QRS 78. QTC 451. Negative STEMI. EKG #2 normal sinus rhythm. Ventricular rate 99. Pr interval 160. QRS 84. QTC 474. Negative STEMI. <AAMIR Funes - Last Filed: 12/28/20 20:32> Discharge Plan Discharge Clinical Impression: Depression <AAMIR Funes - Last Filed: 12/28/20 20:32> Prescriptions: No Action prazosin 1 mg Capsule 3 mg PO BEDTIME Qty: 15 RF: 1 benztropine 1 mg Tablet 1 mg PO BID Qty: 60 RF: 0 sertraline 100 mg Tablet 100 mg PO DAILY Qty: 30 RF: 0 olanzapine 10 mg Tablet 20 mg PO BEDTIME Qty: 30 RF: 0 chlorpromazine 25 mg tablet 25 mg PO BID PRN (Reason: psychosis) Qty: 30 RF: 0 gabapentin 600 mg tablet 600 mg PO TID Qty: 90 RF: 0 mirtazapine 15 mg Tablet 15 mg PO BEDTIME Qty: 30 RF: 0 buspirone 15 mg tablet 15 mg PO TID Qty: 90 RF: 0 buprenorphine-naloxone [Suboxone] 8-2 mg Film 1 film sublingual BID@0830,1330 5 Days Qty: 10 RF: 0 <AAMIR Funes - Last Filed: 12/28/20 20:32>
[2020-12-28 13:52] LABS: MANUAL DIFF FLAG NO
[2020-12-28 13:55] LABS: Basophils Percent Auto 0.2 % (0-2); Hematocrit 34.8 % (42-52); Hemoglobin 12.2 g/dl (14.0-18.0); Imm Gran Abs Auto 0.04 X10*3/uL (0.00-0.03); Imm Gran Pct Auto 0.3 % (0.0-0.4); Lymphocytes Absolute Auto 1.2 X10*3/uL (1.2-4.9); Lymphocytes Percent Auto 8.8 % (20-40); Mean Corpuscular HGB Conc 35.1 g/dl (31.0-36.0); Mean Corpuscular Hemoglobin 31.6 pg (27.0-33.0); Mean Corpuscular Volume 90.2 fL (80-98); Mean Platelet Volume 10.3 fL (9.4-12.4); Monocytes Absolute Auto 1.2 X10*3/uL (0.1-1.2); Monocytes Percent Auto 8.8 % (2-11); Neutrophils Absolute Auto 10.8 X10*3/uL (2.0-8.3); Neutrophils Percent Auto 81.9 % (45-73); Platelet Count 155 X10*3/uL (160-400); Red Blood Count 3.86 X10*6/uL (4.60-5.80); Red Cell Distribution Width 12.9 % (11.0-16.0); White Blood Count 13.1 X10*3/uL (4.8-10.8)
[2020-12-28] MEDS: 0.9 % Sodium Chloride 1,000 ML 999 ML IV (14:01)
[2020-12-28 14:02] VITALS: BP 121/64; PULSE 114; RESP 16; O2SAT 98
[2020-12-28 14:02] LABS: INTERNATIONAL NORM RATIO 1.2 (0.9-1.1); Prothrombin Time 13.8 SEC (10.8-13.0)
[2020-12-28 14:05] LABS: Partial Thromboplastin Time 30.2 SEC (24.1-38.0)
[2020-12-28 14:14] LABS: Ethanol < 10 mg/dL
[2020-12-28 14:17] LABS: Glucose Urine UA NEG (NEG); Leukocyte Esterase Urine NEG (NEG); Nitrite Urine NEG (NEG); PH 5.5 (5.0-8.0); Specific Gravity - Urine >= 1.030 (1.005-1.025); Urine Blood 3+ (NEG); Urine Ketones 40 MG/DL (NEG); Urine Protein TRACE MG/DL (NEG-TRACE)
[2020-12-28 14:18] LABS: Acetaminophen LAB < 1 mcg/mL (<30); Alanine Aminotransferase 551 U/L (0-40); Albumin Level 3.9 g/dL (3.5-5.0); Alkaline Phosphatase 55 U/L (39-117); Anion Gap 18 (12-20); Aspartate Amino Transferase 1433 U/L (5-37); Bilirubin Direct 1.1 mg/dL (0.0-0.5); Bilirubin Total 2.2 mg/dL (0.0-1.0); Blood Urea Nitrogen 32 mg/dL (9-16); Calcium 8.4 mg/dL (8.4-10.2); Carbon Dioxide 22 mmol/L (22-29); Chloride 94 mmol/L (96-108); Creatinine Clr Calc Pharmacy 122.8; Estimated Glomerular Filt Rate > 60; Glucose Random 166 mg/dL (60-115); Potassium 4.4 mmol/L (3.3-5.1); Salicylate < 5.0 mg/dL (15-30); Sodium 130 mmol/L (135-145); Total Protein 6.3 g/dL (6.5-8.0)
[2020-12-28 14:20] LABS: Appearance Urine HAZY; Color Urine YELLOW
--- NOTE | 2020-12-28 14:29 | PC.NURSE ---
This RN spoke with Sam from poison control. Recommend q4hrs EKG, optimize potassium to 4 and magnesium to 2, monitor for for QTC prolongation and hyperthermia, place seizure precautions. Information communicated to AAMIR Rahman.
[2020-12-28 14:31] LABS: Bacteria Urine TRACE /LPF; Hyaline Casts Urine 0-2 /LPF; RBC Urine 0-2 /HPF (0); WBC Urine 0 /HPF (0-4)
[2020-12-28] MEDS: Metoclopramide HCl 10 MG/2 ML VIAL IVPUSH (14:36)
[2020-12-28 14:38] LABS: Amphetamine Screen Urine Not Detected (Not Detect); Barbiturates, Urine Not Detected (Not Detect); Benzodiazepines Screen Urine Not Detected (Not Detect); Cannabinoid Screen Urine Not Detected (Not Detect); Cocaine Screen Urine POSITIVE (Not Detect); Opiate Screen Urine POSITIVE (Not Detect); Phencyclidine Screen Urine Not Detected (Not Detect)
[2020-12-28 14:55] LABS: Magnesium 1.9 mg/dL (1.6-2.6)
--- NOTE | 2020-12-28 16:16 | ECG_ITS ---
Test Reason : MED CLEARANCE Blood Pressure : / mmHG Vent. Rate : 099 BPM Atrial Rate : 099 BPM P-R Int : 160 ms QRS Dur : 084 ms QT Int : 370 ms P-R-T Axes : 056 -04 022 degrees QTc Int : 474 ms Normal sinus rhythm Normal ECG When compared with ECG of 28-DEC-2020 11:57, No significant change was found Referred By: Josiah Roman Electronically Signed By:ALFREDO POLLOCK
[2020-12-28 16:25] VITALS: BP 111/67; PULSE 99; RESP 22; TEMP 37.2; O2SAT 97
[2020-12-28 17:07] LABS: INTERNATIONAL NORM RATIO 1.1 (0.9-1.1); Prothrombin Time 13.4 SEC (10.8-13.0)
[2020-12-28 17:10] LABS: Partial Thromboplastin Time 29.8 SEC (24.1-38.0)
[2020-12-28 17:31] LABS: Acetaminophen LAB < 1 mcg/mL (<30); Albumin Level 3.8 g/dL (3.5-5.0); Alkaline Phosphatase 57 U/L (39-117); Anion Gap 15 (12-20); Bilirubin Total 1.8 mg/dL (0.0-1.0); Blood Urea Nitrogen 28 mg/dL (9-16); Calcium 8.3 mg/dL (8.4-10.2); Carbon Dioxide 25 mmol/L (22-29); Chloride 97 mmol/L (96-108); Creatinine Clr Calc Pharmacy 142.2; Estimated Glomerular Filt Rate > 60; Glucose Random 111 mg/dL (60-115); Potassium 4.2 mmol/L (3.3-5.1); Salicylate < 5.0 mg/dL (15-30); Sodium 133 mmol/L (135-145); Total Protein 6.3 g/dL (6.5-8.0)
[2020-12-28 17:47] LABS: Alanine Aminotransferase 524 U/L (0-40); Aspartate Amino Transferase 1296 U/L (5-37)
[2020-12-28 19:08] VITALS: BP 115/69; PULSE 86; RESP 19; TEMP 37.2; O2SAT 97
--- NOTE | 2020-12-28 19:10 | PC.NURSE ---
pt alert and oriented x3. respirations even and unlabored. no distress noted. pt sitting comfortably in semi fowlers. when asked if pt is feeling suicidal pt states well thats why I'm here . pt requesting hector servin at this time. pt aware of plan of care and has no other questions at this time. call juarez in reach.
[2020-12-28 19:24] VITALS: BP 119/62; RESP 18; TEMP 37.1; O2SAT 98
--- NOTE | 2020-12-28 21:47 | PC.NURSE ---
paperwork faxed to [facility]
[2020-12-28 21:56] VITALS: BP 112/71; PULSE 88; RESP 18; TEMP 37; O2SAT 98
[2020-12-29] VITALS (8 sets, daily range): BP systolic 114–130; BP diastolic 56–71; PULSE 59–85; RESP 16–20; TEMP 36.8–36.9; O2SAT 95–98
[2020-12-29] MEDS: LORazepam 1 MG TABLET 2 MG PO (00:34)
--- NOTE | 2020-12-29 04:48 | PC.NURSE ---
pt sleeping comfortably in bed, no signs of distress noted. call juarez in reach
--- NOTE | 2020-12-29 06:45 | PC.NURSE ---
Report received from Silvio TRIPLETT. PT ambulated to pod with steady gait. Calm and coopertive. PT is inpatient bed search.
--- NOTE | 2020-12-29 07:22 | PC.NURSE ---
Report received from UZIEL Beatty. Pt resting, resp unlabored.
[2020-12-29] MEDS: Benztropine Mesylate 1 MG TABLET PO ×2 (10:01→20:33)
[2020-12-29] MEDS: Sertraline HCL 100 MG TABLET PO (10:01)
[2020-12-29] MEDS: busPIRone HCl 5 MG TABLET 15 MG PO ×3 (10:01→20:33)
[2020-12-29] MEDS: Gabapentin 600 MG TABLET PO ×3 (10:02→20:33)
--- NOTE | 2020-12-29 10:15 | PC.NURSE ---
Pt reporting he last used heroin yesterday at approximately 4-5 in the afternoon. Suboxone held, per pt request.
[2020-12-29 10:19] LABS: COVID-19 Test Negative (Negative)
--- NOTE | 2020-12-29 13:28 | PC.NURSE ---
Late entry: Ac Jiménez aware Suboxone being held w/ pt agreement for reported use of heroin within 24 hrs.
--- NOTE | 2020-12-29 17:38 | PC.NURSE ---
N March aware of URIWA
[2020-12-29] MEDS: chlordiazePOXIDE HCl 25 MG CAPSULE PO (17:55)
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
[2020-12-29] MEDS: Prazosin HCL 1 MG CAPSULE 3 MG PO (20:33)
[2020-12-29] MEDS: Mirtazapine 15 MG TABLET PO (20:33)
[2020-12-29] MEDS: OLANZapine 10 MG TABLET 20 MG PO (20:33)
--- NOTE | 2020-12-29 21:19 | PC.NURSE ---
Patient calm and quiet, lying in his bed, watching TV, compliant with HS PO medication, denied distress at this time, VSS, will continue to monitor.
[2020-12-30 06:40] VITALS: BP 110/57; PULSE 69; RESP 17; TEMP 36.8; O2SAT 98
[2020-12-30] MEDS: Benztropine Mesylate 1 MG TABLET PO ×2 (09:41→20:54)
[2020-12-30] MEDS: Buprenorphine/Naloxone 8/2 mg FILM 1 FILM SUBLINGUAL ×2 (09:41→15:12)
[2020-12-30] MEDS: Sertraline HCL 100 MG TABLET PO (09:41)
[2020-12-30] MEDS: Gabapentin 600 MG TABLET PO ×3 (09:41→20:55)
[2020-12-30] MEDS: busPIRone HCl 5 MG TABLET 15 MG PO ×3 (09:41→20:55)
[2020-12-30 09:46] VITALS: BP 107/77; PULSE 92; RESP 18; TEMP 36.5; O2SAT 96
--- NOTE | 2020-12-30 10:20 | PC.NURSE ---
PATIENT AWAKE, CALM AND COOPERATIVE. MORNING MEDS PROVIDED. PATIENT REQUEST TO TAKE SUBOXONE THIS MORNING, GIVEN TO PATIENT WITH MEDS. BED SEARCH CONTINUES.
[2020-12-30 17:39] VITALS: BP 125/69; PULSE 65; RESP 16; TEMP 36.6; O2SAT 98
[2020-12-30] MEDS: Mirtazapine 15 MG TABLET PO (20:54)
[2020-12-30 20:55] VITALS: BP 131/83; PULSE 99
[2020-12-30] MEDS: OLANZapine 10 MG TABLET 20 MG PO (20:55)
[2020-12-30] MEDS: Prazosin HCL 1 MG CAPSULE 3 MG PO (20:55)
[2020-12-31 06:25] VITALS: BP 118/70; PULSE 66; RESP 17; TEMP 36.5; O2SAT 96
--- NOTE | 2020-12-31 07:05 | PC.NURSE ---
report taken from joyce mckeon pt sitting up at bedside, eating breakfast. appears calm and cooperative. [facility]ctm for dc needs.
[2020-12-31 09:43] LABS: MANUAL DIFF FLAG NO
[2020-12-31] MEDS: Benztropine Mesylate 1 MG TABLET PO (09:43)
[2020-12-31] MEDS: Sertraline HCL 100 MG TABLET PO (09:43)
[2020-12-31] MEDS: Gabapentin 600 MG TABLET PO (09:43)
[2020-12-31] MEDS: busPIRone HCl 5 MG TABLET 15 MG PO (09:44)
[2020-12-31] MEDS: Buprenorphine/Naloxone 8/2 mg FILM 1 FILM SUBLINGUAL (09:44)
[2020-12-31 09:45] LABS: Basophils Percent Auto 0.4 % (0-2); Eosinophils Absolute Auto 0.3 X10*3/uL (0.0-0.4); Eosinophils Percent Auto 6.9 % (0-4); Hematocrit 40.5 % (42-52); Imm Gran Abs Auto 0.01 X10*3/uL (0.00-0.03); Imm Gran Pct Auto 0.2 % (0.0-0.4); Lymphocytes Absolute Auto 1.4 X10*3/uL (1.2-4.9); Mean Corpuscular HGB Conc 34.6 g/dl (31.0-36.0); Mean Corpuscular Hemoglobin 31.6 pg (27.0-33.0); Mean Corpuscular Volume 91.4 fL (80-98); Mean Platelet Volume 10.4 fL (9.4-12.4); Monocytes Absolute Auto 0.5 X10*3/uL (0.1-1.2); Monocytes Percent Auto 9.7 % (2-11); Neutrophils Absolute Auto 2.7 X10*3/uL (2.0-8.3); Neutrophils Percent Auto 53.8 % (45-73); Platelet Count 211 X10*3/uL (160-400); Red Blood Count 4.43 X10*6/uL (4.60-5.80)
[2020-12-31 09:49] VITALS: BP 125/86; PULSE 75; RESP 18; O2SAT 97
[2020-12-31 10:28] LABS: Alanine Aminotransferase 366 U/L (0-40); Albumin Level 3.7 g/dL (3.5-5.0); Alkaline Phosphatase 61 U/L (39-117); Anion Gap 11 (12-20); Aspartate Amino Transferase 385 U/L (5-37); Bilirubin Direct 0.3 mg/dL (0.0-0.5); Bilirubin Total 0.6 mg/dL (0.0-1.0); Blood Urea Nitrogen 15 mg/dL (9-16); Carbon Dioxide 28 mmol/L (22-29); Chloride 107 mmol/L (96-108); Creatinine Clr Calc Pharmacy 186.4; Estimated Glomerular Filt Rate > 60; Glucose Random 89 mg/dL (60-115); Potassium 4.2 mmol/L (3.3-5.1); Sodium 142 mmol/L (135-145); Total Protein 6.5 g/dL (6.5-8.0)
--- NOTE | 2020-12-31 12:21 | PC.NURSE ---
extensive nurse to nurse report given to tommie at [facility]
== END 2020-12-31 13:10 ==
PROVIDERS: Physician Assistant; Emergency Provider Emergency Medicine
DX: T43.592A Poisoning by other antipsychotics and neuroleptics, intentional self-harm, initial encounter (principal); T44.6X2A Poisoning by alpha-adrenoreceptor antagonists, intentional self-harm, initial encounter; T40.2X2A Poisoning by other opioids, intentional self-harm, initial encounter; T42.6X2A Poisoning by other antiepileptic and sedative-hypnotic drugs, intentional self-harm, initial encounter; Y92.9 Unspecified place or not applicable; F32.9 Major depressive disorder, single episode, unspecified; R11.10 Vomiting, unspecified; R79.89 Other specified abnormal findings of blood chemistry; F10.20 Alcohol dependence, uncomplicated; Y90.0 Blood alcohol level of less than 20 mg/100 ml; F11.10 Opioid abuse, uncomplicated; F14.10 Cocaine abuse, uncomplicated; Z86.19 Personal history of other infectious and parasitic diseases; Z20.822 Contact with and (suspected) exposure to COVID-19
CPT/HCPCS: 36415; 71046; 76705; 80048; 80053; 80076; 80143; 80179; 80307; 80320; 81001; 82248; 83735; 85025; 85610; 85730; 87635; 93005; 96361; 96374; 99285; J2765